=== PATIENT | female | born 1990 | race Caucasian/White ===

== ENCOUNTER 2020-10-26 20:57 | Emergency (ER) | payer SELFPAY ==
[~2020-10-26] VITALS: Ht 165.1 cm; Wt 66.2 kg
[~2020-10-26 20:57] MED LIST: CPR500T PO; NAPR-243 PO; NITR-65 PO; PHEN200T16 PO; PHEN200T27 PO; TPR25T PO; [UNRECOGNIZED DRUG - CODE] TOP
[2020-10-26 21:00] VITALS: BP 126/70
[2020-10-26] MEDS ORDERED: ONDANSETRON 4 MG (ZOFRAN) ORAL DISSOLVE TAB PO STA (21:14)
[2020-10-26] MEDS ORDERED: FAMOTIDINE 20 MG (PEPCID) TABLET PO ONE (21:15)
[2020-10-26] MEDS ORDERED: LIDOCAINE 2% VISCOUS 15 ML UDC PO ONE (21:15)
[2020-10-26] MEDS ORDERED: ANTACID SUSP 30 ML UDC (MYLANTA) PO ONE (21:15)
--- NOTE | 2020-10-26 21:15 | ED Abdominal Pain ---
General Chief Complaint: Abdominal/GI Problems Stated Complaint: ACID REFLEX,VOMITING Source of Information: Patient History of Present Illness Date Seen by Provider: Oct 26, 2020 Time Seen by Provider: 21:05 Initial Comments 30-year-old female presents with epigastric pain, burning, and reflux for about the past 1 week. She saw her primary care provider in [facility] about a week ago and was started on Prilosec twice a day. Is helped some, however not as not relieving all her discomfort. Tonight she vomited x1 so she came to the emergency room. Denies any fever chills, loss of appetite. She is a smoker and she does drink a fair amount of caffeine daily. Denies any chest pain, cough or fever. Allergies and Home Medications Allergies Coded Allergies: No Known Drug Allergies (Unverified , 02/26/13) Home Medications Naproxen 500 Mg Tablet, 1 EACH PO TID PRN FOR PAIN Prescribed by: PREET STAPLETON on 05/05/138 Nitrofurantoin/Nitrofuran Mac 100 Mg Capsule, 1 EACH PO BID FOR INFECTION Prescribed by: PREET STAPLETON on 05/05/138 Phenazopyridine Hcl 200 Mg Tablet, 1 EACH PO TID PRN FOR BLADDER DISCOMFORT Prescribed by: PREET STAPLETON on 05/05/138 Topiramate 25 Mg Tablet, 2 TAB PO BID, (Reported) Patient Home Medication List Home Medication List Reviewed: Yes Review of Systems Review of Systems Constitutional: No fever, No malaise, No weakness EENTM: No Symptoms Reported Respiratory: Denies Cough, Denies Shortness of Air Cardiovascular: Denies Chest Pain, Denies Edema, Denies Lightheadedness Gastrointestinal: Abdominal Pain; Denies Constipated, Denies Diarrhea; Nausea, Vomiting (x1) Genitourinary: Denies Burning, Denies Discharge Musculoskeletal: No back pain, No joint pain Skin: No change in color, No rash Past Okfigfy-Xyjnsp-Xdnrfz Hx Past Med/Social Hx: Reviewed Nursing Past Med/Soc Hx Patient Social History Alcohol Use: Denies Use Smoking Status: Current Everyday Smoker Type Used: Cigarettes Recent Hopitalizations: No Immunizations Up To Date Tetanus Booster (TDap): More than 5yrs Seasonal Allergies Seasonal Allergies: No Past Medical History Surgeries: Yes Gallbladder Respiratory: No Cardiac: No Neurological: No Reproductive Disorders: No Female Reproductive Disorders: Ovarian Cyst Sexually Transmitted Disease: No HIV/AIDS: No Bladder Infection Gastrointestinal: Yes Gastroesophageal Reflux Musculoskeletal: No Endocrine: No HEENT: No Cancer: No Psychosocial: Yes Anxiety Integumentary: No Blood Disorders: No Adverse Reaction/Blood Tranf: No Family Medical History No Pertinent Family Hx Physical Exam Vital Signs Vital Signs - First Documented 10/26/20 21:00 Temp 37.3 Pulse 94 Resp 14 B/P (MAP) 126/70 (88) Pulse Ox 99 O2 Delivery Room Air Capillary Refill : Height/Weight/BMI Height: '" Weight: 97lbs. oz. 43.765887ed; BMI Method:Stated General Appearance: WD/WN, no apparent distress Respiratory: chest non-tender, lungs clear, normal breath sounds Cardiovascular: regular rate, rhythm, no edema, no gallop Gastrointestinal: normal bowel sounds, soft, no organomegaly, no pulsatile mass, tenderness (epigastric only) Progress/Results/Core Measures Results/Orders My Orders Orders - HANNAH ROCHA DO Ondansetron Oral Dissolve Tab (Zofran (10/26/20 21:14) Famotidine Tablet (Pepcid Tablet) (10/26/20 21:15) Antacid Suspension (Mylanta Suspension (10/26/20 21:15) Lidocaine 2% Viscous 15 Ml (Xylocaine Vi (10/26/20 21:15) Vital Signs/I&O 10/26/20 21:00 Temp 37.3 Pulse 94 Resp 14 B/P (MAP) 126/70 (88) Pulse Ox 99 O2 Delivery Room Air Progress Progress Note : Progress Note relief w zofran and GI cocktail Departure Impression Primary Impression: Epigastric abdominal pain Disposition: 01 HOME, SELF-CARE Condition: Improved Departure-Patient Inst. Referrals: [facility] [place]YSIC[place] (PCP) Primary Care Physician Patient Instructions: Peptic Ulcers (DC), Acid Reflux and Gastroesophageal Reflux Disease in Adults Add. Discharge Instructions: Establish a PCP, primary care provider at the [facility] clinic in 1 to 2 weeks. Stop smoking and decrease your caffeine consumption to help alleviate your stomach pain. Return to the ER if your symptoms get worse and you are unable to see a PCP. All discharge instructions reviewed with patient and/or family. Voiced understanding. Scripts Ondansetron (Ondansetron Odt) 4 Mg Tab.rapdis 4 MG PO TID for Nausea, #10 TAB Prov: HANNAH ROCHA DO 10/26/20 Famotidine (Pepcid) 20 Mg Tablet 20 MG PO BID, #10 TAB Prov: HANNAH ROCHA DO 10/26/20 HANNAH ROCHA DO Oct 26, 2020 21:15
[2020-10-26] MEDS ORDERED: FAMO-119 PO (21:24)
[2020-10-26] MEDS ORDERED: ONDA4TAB11 PO (21:24)
== END 2020-10-26 21:38 | disposition home or self-care (01) ==
LOC: EDUNIT# 20:57 → ER FS 20:59
DX: R10.13 Epigastric pain (principal); F17.210 Nicotine dependence, cigarettes, uncomplicated; Z87.448 Personal history of other diseases of urinary system
CPT/HCPCS: 99283

== ENCOUNTER 2020-11-06 17:35 | Emergency (ER) | payer SELFPAY ==
[~2020-11-06] VITALS: Ht 165.1 cm; Wt 65.7 kg
[~2020-11-06 17:35] MED LIST changes: +FAMO-119 PO; +ONDA4TAB11 PO
--- NOTE | 2020-11-06 18:01 | ED Lower Extremity ---
General Chief Complaint: Lower Extremity Stated Complaint: R FOOT PAIN Nursing Triage Note: PT C/O RIGHT FOOT PAIN X1 WEEK. DENIES INJURY Nursing Sepsis Screen: No Definite Risk Source: patient Exam Limitations: no limitations History of Present Illness Date Seen by Provider: Nov 06, 2020 Time Seen by Provider: 17:47 Initial Comments To ER with right foot pain laterally for 1 week no known injury. She will occasionally get sharp pains. The pain is worse with plantar flexion. Onset: just prior to arrival Severity: moderate Pain/Injury Location: right foot Modifying Factors: Improves With Movement Allergies and Home Medications Allergies Coded Allergies: No Known Drug Allergies (Unverified , 02/26/13) Home Medications Famotidine 20 Mg Tablet, 20 MG PO BID Prescribed by: HANNAH ROCHA on 10/26/202123 Naproxen 500 Mg Tablet, 1 EACH PO TID PRN FOR PAIN Prescribed by: PREET STAPLETON on 05/05/138 Nitrofurantoin/Nitrofuran Mac 100 Mg Capsule, 1 EACH PO BID FOR INFECTION Prescribed by: PREET STAPLETON on 05/05/138 Ondansetron 4 Mg Tab.rapdis, 4 MG PO TID Prescribed by: HANNAH ROCHA on 10/26/202123 Phenazopyridine Hcl 200 Mg Tablet, 1 EACH PO TID PRN FOR BLADDER DISCOMFORT Prescribed by: PREET STAPLETON on 05/05/138 Topiramate 25 Mg Tablet, 2 TAB PO BID, (Reported) Patient Home Medication List Home Medication List Reviewed: Yes Review of Systems Constitutional: see HPI EENTM: see HPI Respiratory: no symptoms reported Cardiovascular: no symptoms reported Genitourinary: no symptoms reported Musculoskeletal: see HPI Skin: no symptoms reported Psychiatric/Neurological: No Symptoms Reported Past Xqraici-Nhncdn-Qmcykf Hx Patient Social History Alcohol Use: Denies Use Smoking Status: Current Everyday Smoker Type Used: Cigarettes Recent Infectious Disease Expo: No Recent Hopitalizations: No Immunizations Up To Date Tetanus Booster (TDap): More than 5yrs Seasonal Allergies Seasonal Allergies: No Past Medical History Surgeries: Yes Gallbladder Respiratory: No Cardiac: No Neurological: No Reproductive Disorders: No Female Reproductive Disorders: Ovarian Cyst Sexually Transmitted Disease: No HIV/AIDS: No Bladder Infection Gastrointestinal: Yes Gastroesophageal Reflux Musculoskeletal: No Endocrine: No HEENT: No Cancer: No Psychosocial: Yes Anxiety Integumentary: No Blood Disorders: No Adverse Reaction/Blood Tranf: No Family Medical History No Pertinent Family Hx Physical Exam Vital Signs Vital Signs - First Documented 11/06/20 17:42 Temp 36.2 Pulse 100 Resp 16 B/P (MAP) 135/58 (83) Pulse Ox 99 O2 Delivery Room Air Capillary Refill : Less Than 3 Seconds Height, Weight, BMI Height: '" Weight: 97lbs. oz. 43.367522ik; 24.00 BMI Method:Stated General Appearance: WD/WN, no apparent distress HEENT: PERRL/EOMI, normal ENT inspection Neck: non-tender, full range of motion Respiratory: no respiratory distress, no accessory muscle use Hips: bilateral hip non-tender, bilateral hip normal inspection, bilateral hip normal range of motion Legs: bilateral leg non-tender, bilateral leg normal inspection, bilateral leg normal range of motion Knees: bilateral knee non-tender, bilateral knee normal inspection, bilateral knee normal range of motion Ankles: bilateral ankle non-tender, bilateral ankle normal inspection, bilateral ankle no evidence of injury Feet: bilateral foot normal inspection, bilateral foot normal range of motion; right foot other (The lateral aspect of the right foot is tender to palpation but has normal appearance without any erythema, no wound, no abrasion, no ecch ymosis or swelling.) Neurologic/Tendon: normal sensation, normal motor functions Neurologic/Psychiatric: alert, normal mood/affect, oriented x 3 Skin: normal color, warm/dry Progress/Results/Core Measures Results/Orders My Orders Orders - ARSENIO TORRES APRN Foot, Right, 3 View (11/06/20 18:09) Vital Signs/I&O 11/06/20 17:42 Temp 36.2 Pulse 100 Resp 16 B/P (MAP) 135/58 (83) Pulse Ox 99 O2 Delivery Room Air Blood Pressure Mean: 83 Departure Impression Primary Impression: Foot pain, right Disposition: 01 HOME, SELF-CARE Condition: Stable Departure-Patient Inst. Decision time for Depature: 18:21 Referrals: NO,LOCAL PHYSICIAN (PCP/Family) Primary Care Physician Patient Instructions: Foot Sprain (DC) Add. Discharge Instructions: 1. Wear the postoperative shoe as directed. Take Tylenol and ibuprofen for pain control. If the pain persists in the next week follow-up with your family doctor to discuss scheduling an MRI to evaluate for other causes of foot pain not seen on x-ray. All discharge instructions reviewed with patient and/or family. Voiced understanding. Work/School Note: Work Release Form Date Seen in the Emergency Department: Nov 06, 2020 Return to Work: Nov 08, 2020 ARSENIO TORRES APRN Nov 06, 2020 18:00
--- NOTE | 2020-11-06 18:22 | Diagnostic Imaging Report ---
EXAM: Right foot radiograph. EXAM DATE: 11/06/2020. COMPARISON: None. HISTORY: Right foot pain. TECHNIQUE: Two views of the right foot. FINDINGS: There is no acute fracture, dislocation or destructive osseous process. Joint spaces are normal. Soft tissues are normal. IMPRESSION: No acute osseous abnormality of the right foot. Dictated by: Dictated on workstation # [id number]
[2020-11-06 18:34] VITALS: BP 135/58
== END 2020-11-06 18:34 | disposition home or self-care (01) ==
LOC: EDUNIT# 17:35 → ER 17:36
DX: M79.671 Pain in right foot (principal); K21.9 Gastro-esophageal reflux disease without esophagitis; F17.210 Nicotine dependence, cigarettes, uncomplicated
CPT/HCPCS: 73630

== ENCOUNTER 2020-11-12 06:47 | Emergency (ER) | payer SELFPAY ==
[~2020-11-12] VITALS: Ht 165.1 cm; Wt 67.7 kg
[2020-11-12 07:00] VITALS: BP 108/72
[2020-11-12] MEDS ORDERED: ANTACID SUSP 30 ML UDC (MYLANTA) PO ONE (07:15)
[2020-11-12] MEDS ORDERED: LIDOCAINE 2% VISCOUS 15 ML UDC PO ONE (07:15)
--- NOTE | 2020-11-12 07:24 | ED Abdominal Pain ---
General Chief Complaint: Abdominal/GI Problems Stated Complaint: ABD PAIN Nursing Triage Note: Patient presents to the ED with c/o of epigastric pain that radiates up to her chest. She describes the pain as "burning" and rates the severity at an 8 out of 10. She reports that the pain began around 2100 last night shortly after eating dinner. She denies taking any medications to help with the pain. Sepsis Screen: No Definite Risk Source of Information: Patient Exam Limitations: No Limitations History of Present Illness Date Seen by Provider: Nov 12, 2020 Time Seen by Provider: 06:50 Initial Comments Patient is a 30-year-old female with history of gastritis who presents with epigastric pain radiating to her chest. Symptom onset was 10 hours prior to ED arrival after eating a spicy rich burrito. Pain is described as burning, nonmigratory, and rated mild to moderate. It is worse after eating spicy food. No medications or therapies have been taken prior to ED arrival. Denies fever cough, sore throat, shortness of breath. No hematemesis coffee-ground emesis, no melena or hematochezia. No other acute symptoms or complaints. Previous cholecystectomy. Timing/Duration: 12 Hours Severity/Quality: Mild Location: Other Radiation: Other Activities at Onset: Other Modifying Factors: Improves With Other Associated Symptoms: Other Allergies and Home Medications Allergies Coded Allergies: No Known Drug Allergies (Unverified , 02/26/13) Home Medications Famotidine 20 Mg Tablet, 20 MG PO BID Prescribed by: HANNAH ROCHA on 10/26/202123 Naproxen 500 Mg Tablet, 1 EACH PO TID PRN FOR PAIN Prescribed by: PREET STAPLETON on 05/05/138 Nitrofurantoin/Nitrofuran Mac 100 Mg Capsule, 1 EACH PO BID FOR INFECTION Prescribed by: PREET STAPLETON on 05/05/138 Ondansetron 4 Mg Tab.rapdis, 4 MG PO TID Prescribed by: HANNAH ROCHA on 10/26/202123 Phenazopyridine Hcl 200 Mg Tablet, 1 EACH PO TID PRN FOR BLADDER DISCOMFORT Prescribed by: PREET STAPLETON on 05/05/138 Topiramate 25 Mg Tablet, 2 TAB PO BID, (Reported) Patient Home Medication List Home Medication List Reviewed: Yes Review of Systems Review of Systems Constitutional: see HPI EENTM: See HPI Respiratory: See HPI Cardiovascular: See HPI Gastrointestinal: See HPI Genitourinary: See HPI Musculoskeletal: see HPI Skin: see HPI Psychiatric/Neurological: See HPI Endocrine: See HPI Hematologic/Lymphatic: See HPI All Other Systems Reviewed Negative Unless Noted: Yes Past Rzivhec-Jmcvcf-Gburzm Hx Past Med/Social Hx: Reviewed Nursing Past Med/Soc Hx Patient Social History Alcohol Use: Denies Use Smoking Status: Current Everyday Smoker Type Used: Cigarettes 2nd Hand Smoke Exposure: Yes Recent Infectious Disease Expo: No Recent Hopitalizations: No Immunizations Up To Date Tetanus Booster (TDap): More than 5yrs Seasonal Allergies Seasonal Allergies: No Past Medical History Surgeries: Yes Gallbladder Respiratory: No Cardiac: No Neurological: No Reproductive Disorders: No Female Reproductive Disorders: Ovarian Cyst Sexually Transmitted Disease: No HIV/AIDS: No Genitourinary: No Bladder Infection Gastrointestinal: Yes Gastroesophageal Reflux Musculoskeletal: No Endocrine: No HEENT: No Cancer: No Psychosocial: Yes Anxiety Integumentary: No Blood Disorders: No Adverse Reaction/Blood Tranf: No Family Medical History No Pertinent Family Hx Physical Exam Vital Signs Vital Signs - First Documented 11/12/20 07:00 Temp 36.8 Pulse 101 Resp 16 B/P (MAP) 108/72 (84) Pulse Ox 98 O2 Delivery Room Air Capillary Refill : Less Than 3 Seconds Height/Weight/BMI Height: '" Weight: 97lbs. oz. 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 Gastritis with complete relief of symptoms with GI cocktail Impression Primary Impression: Abdominal pain Additional Impression: Gastritis Disposition: HOME, SELF-CARE Condition: Stable Departure-Patient Inst. Decision time for Depature: 07:26 Referrals: NO,LOCAL PHYSICIAN (PCP/Family) Primary Care Physician Patient Instructions: Gastritis Add. Discharge Instructions: Continue Pepcid 20 mg twice daily and use Maalox OTC as needed for additional relief. Avoid spicy foods, alcohol, caffeine and eating 3 hours prior to bedtime. Follow-up with your PCP as needed. All discharge instructions reviewed with patient and/or family. Voiced understanding. Work/School Note: Work Release Form Date Seen in the Emergency Department: Nov 12, 2020 Return to Work: Nov 12, 2020 Restrictions: No Restrictions ARAMIS DUQUE DO Nov 12, 2020 07:24
== END 2020-11-12 07:29 | disposition home or self-care (01) ==
LOC: EDUNIT# 06:47 → ER FS 06:51
DX: R10.13 Epigastric pain (principal); K29.70 Gastritis, unspecified, without bleeding; K21.9 Gastro-esophageal reflux disease without esophagitis; F17.210 Nicotine dependence, cigarettes, uncomplicated
CPT/HCPCS: 99283

== ENCOUNTER 2020-12-02 12:16 | Emergency (ER) | payer SELFPAY ==
[~2020-12-02] VITALS: Ht 165.1 cm; Wt 67.7 kg
--- NOTE | 2020-12-02 12:35 | ED GU-Female ---
General Chief Complaint: - Urinary Stated Complaint: DIFFICULTY URINATING Source: patient Exam Limitations: no limitations History of Present Illness Date Seen by Provider: December 02, 2020 Time Seen by Provider: 12:24 Initial Comments This is a well-appearing 30-year-old female who presents to the ER with complaints of inability to urinate. States she been having difficulty urinating over the past 2 weeks however today she has not been able to urinate at all. States this is happened in the past when she had a urinary tract infection however this time it is more severe. No fever, chills, cough, shortness of breath, nausea, vomiting, abdominal pain. Last menstrual period 3 days ago. Allergies and Home Medications Allergies Coded Allergies: No Known Drug Allergies (Unverified , 02/26/13) Home Medications Famotidine 20 Mg Tablet, 20 MG PO BID Prescribed by: HANNAH ROCHA on 10/26/202123 Naproxen 500 Mg Tablet, 1 EACH PO TID PRN FOR PAIN Prescribed by: PREET STAPLETON on 05/05/138 Nitrofurantoin/Nitrofuran Mac 100 Mg Capsule, 1 EACH PO BID FOR INFECTION Prescribed by: PREET STAPLETON on 05/05/138 Ondansetron 4 Mg Tab.rapdis, 4 MG PO TID Prescribed by: HANNAH ROCHA on 10/26/202123 Phenazopyridine Hcl 200 Mg Tablet, 1 EACH PO TID PRN FOR BLADDER DISCOMFORT Prescribed by: PREET STAPLETON on 05/05/138 Tamsulosin HCl 0.4 Mg Cap, 0.4 MG PO DAILY Prescribed by: WANDA CONNER on 12/02/20 153 Topiramate 25 Mg Tablet, 2 TAB PO BID, (Reported) Patient Home Medication List Home Medication List Reviewed: Yes Review of Systems Review of Systems Constitutional: no symptoms reported EENTM: no symptoms reported Respiratory: no symptoms reported Cardiovascular: no symptoms reported Gastrointestinal: no symptoms reported Genitourinary: see HPI; denies burning, denies discharge, denies dysuria, denies frequency, denies flank pain Past Isjnetf-Cxsede-Cwerip Hx Patient Social History Type Used: Cigarettes 2nd Hand Smoke Exposure: Yes Recent Hopitalizations: No Immunizations Up To Date Tetanus Booster (TDap): More than 5yrs Seasonal Allergies Seasonal Allergies: No Past Medical History Surgeries: Yes Gallbladder Respiratory: No Cardiac: No Neurological: No Reproductive Disorders: No Female Reproductive Disorders: Ovarian Cyst Sexually Transmitted Disease: No HIV/AIDS: No Genitourinary: No Bladder Infection Gastrointestinal: Yes Gastroesophageal Reflux Musculoskeletal: No Endocrine: No HEENT: No Cancer: No Psychosocial: Yes Anxiety Integumentary: No Blood Disorders: No Adverse Reaction/Blood Tranf: No Family Medical History No Pertinent Family Hx Physical Exam Vital Signs Vital Signs - First Documented 12/02/20 12:20 Temp 36.5 Pulse 89 Resp 18 B/P (MAP) 123/83 (96) Pulse Ox 99 O2 Delivery Room Air Capillary Refill : Height, Weight, BMI Height: '" Weight: 97lbs. oz. 43.933518dj; 24.00 BMI Method:Stated General Appearance: WD/WN, no apparent distress HEENT: PERRL/EOMI, normal ENT inspection Neck: full range of motion, normal inspection Cardiovascular: regular rate, rhythm, no murmur Respiratory: lungs clear, normal breath sounds, no respiratory distress Gastrointestinal: normal bowel sounds, non tender, soft; No distended; other (suprapubic "pressure") Pelvic: normal external exam, no masses; No discharge, No lesions, No vaginal bleeding Back: normal inspection, no CVA tenderness Extremities: normal range of motion, normal inspection Neurologic/Psychiatric: no motor/sensory deficits, alert, normal mood/affect, oriented x 3 Skin: normal color, warm/dry Progress/Results/Core Measures Suspected Sepsis SIRS Temperature: Pulse: Respiratory Rate: Laboratory Tests 12/02/20 13:45: White Blood Count 6.8 Blood Pressure / Mean: Laboratory Tests 12/02/20 13:45: Creatinine 0.80, Platelet Count 248, Total Bilirubin 0.3 Results/Orders Lab Results Laboratory Tests Test 12/02/20 12:55 12/02/20 13:45 12/02/20 16:03 Range/Units Urine Color YELLOW Urine Clarity CLEAR Urine pH 7.0 5-9 Urine Specific [place] 1.015 L 1.016-1.022 Urine Protein NEGATIVE NEGATIVE Urine Glucose (UA) NEGATIVE NEGATIVE Urine Ketones NEGATIVE NEGATIVE Urine Nitrite NEGATIVE NEGATIVE Urine Bilirubin NEGATIVE NEGATIVE Urine Urobilinogen 1.0 < = 1.0 MG/DL Urine Leukocyte Esterase NEGATIVE NEGATIVE Urine RBC (Auto) NEGATIVE NEGATIVE Urine RBC NONE /HPF Urine WBC RARE /HPF Urine Crystals NONE /LPF Urine Bacteria NEGATIVE /HPF Urine Casts NONE /LPF Urine Mucus SMALL H /LPF Urine Culture Indicated NO White Blood Count 6.8 4.3-11.0 10^3/uL Red Blood Count 4.02 3.80-5.11 10^6/uL Hemoglobin 12.8 11.5-16.0 g/dL Hematocrit 38 35-52 % Mean Corpuscular Volume 95 80-99 fL Mean Corpuscular Hemoglobin 32 25-34 pg Mean Corpuscular Hemoglobin Concent 33 32-36 g/dL Red Cell Distribution Width 13.1 10.0-14.5 % Platelet Count 248 130-400 10^3/uL Mean Platelet Volume 10.5 9.0-12.2 fL Immature Granulocyte % (Auto) 0 % Neutrophils (%) (Auto) 50 42-75 % Lymphocytes (%) (Auto) 37 12-44 % Monocytes (%) (Auto) 8 0-12 % Eosinophils (%) (Auto) 5 0-10 % Basophils (%) (Auto) 1 0-10 % Neutrophils # (Auto) 3.4 1.8-7.8 10^3/uL Lymphocytes # (Auto) 2.5 1.0-4.0 10^3/uL Monocytes # (Auto) 0.5 0.0-1.0 10^3/uL Eosinophils # (Auto) 0.3 0.0-0.3 10^3/uL Basophils # (Auto) 0.1 0.0-0.1 10^3/uL Immature Granulocyte # (Auto) 0.0 0.0-0.1 10^3/uL Sodium Level 141 135-145 MMOL/L Potassium Level 3.5 L 3.6-5.0 MMOL/L Chloride Level 113 H 98-107 MMOL/L Carbon Dioxide Level 18 L 21-32 MMOL/L Anion Gap 10 5-14 MMOL/L Blood Urea Nitrogen 8 7-18 MG/DL Creatinine 0.80 0.60-1.30 MG/DL Estimat Glomerular Filtration Rate > 60 BUN/Creatinine Ratio 10 Glucose Level 78 70-105 MG/DL Calcium Level 8.3 L 8.5-10.1 MG/DL Corrected Calcium 8.5 8.5-10.1 MG/DL Total Bilirubin 0.3 0.1-1.0 MG/DL Aspartate Amino Transf (AST/SGOT) 17 5-34 U/L Alanine Aminotransferase (ALT/SGPT) 12 0-55 U/L Alkaline Phosphatase 91 40-136 U/L Total Protein 6.6 6.4-8.2 GM/DL Albumin 3.8 3.2-4.5 GM/DL My Orders Orders - WANDA CONNER APRN Ua Culture If Indicated (12/02/20 12:24) Bladder Scan (12/02/20 12:32) Urine Bedside (12/02/20 12:35) Ketorolac Injection (Toradol Injection) (12/02/20 12:45) Straight Cath For Spec.-Adult (12/02/20 12:42) Neisseria Gonorrhea Swab (12/02/20 13:02) Genital Culture (12/02/20 13:02) Chlamydia Trachomatis Swab (12/02/20 13:02) Cbc With Automated Diff (12/02/20 13:07) Comprehensive Metabolic Panel (12/02/20 13:07) Ns Iv 1000 Ml (Sodium Chloride 0.9%) (12/02/20 13:45) Ed Iv/Invasive Line Start (12/02/20 13:41) Ct Abdomen/Pelvis Wo (12/02/20 13:41) Medications Given in ED Current Medications Medications Dose Ordered Sig/Ginette Route Start Time Stop Time Status Last Admin Dose Admin Ketorolac Tromethamine 30 mg ONCE ONCE IM 12/02/20 12:45 12/02/20 12:46 DC 12/02/20 13:00 30 MG Sodium Chloride 1,000 ml @ 999 mls/hr Q1H ONCE IV 12/02/20 13:45 12/02/20 14:45 DC 12/02/20 13:53 999 MLS/HR Vital Signs/I&O 12/02/20 12:20 Temp 36.5 Pulse 89 Resp 18 B/P (MAP) 123/83 (96) Pulse Ox 99 O2 Delivery Room Air Capillary Refill : Progress Note : Progress Note Patient examined and in no acute distress. Will give Toradol 30 mg IM for discomfort and obtain bladder scan. Reports improvement of pain, UA shows no infection. Will give 1 L normal saline. Orders placed for basic labs and CT abdomen pelvis. External genital exam shows no obvious deformities, masses, lesions. Labs reviewed and are unremarkable, CT abdomen pelvis shows no acute findings. Discussed case with Dr. Castaneda recommended starting patient on Flomax and have her following up outpatient. STI testing and vaginal cultures pending. Reviewed discharge plan of care and she is agreeable with plan. No questions or concerns at time of discharge. Diagnostic Imaging Diagonstic Imaging: CT Plain Films/CT/US/NM/MRI: abdomen, pelvis Comments NAME: HUSSEIN COBIAN [facility] REC#: [id number] PT STATUS: REG ER : 1990 PHYSICIAN: WANDA CONNER [employer] ADMIT DATE: 12/02/20/ER Draft Date of Exam:12/02/20 CT ABDOMEN/PELVIS WO EXAMINATION: CT abdomen and pelvis without contrast. TECHNIQUE: Multiple contiguous axial images were obtained through the abdomen and pelvis without the use of intravenous contrast. All CT scans use one or more of the following dose optimizing techniques: automated exposure control, MA and/or KvP adjustment based on patient size and exam type or iterative reconstruction. HISTORY: Flank pain COMPARISON: None available. FINDINGS: Limited views of the lower thorax are unremarkable. The liver is normal without focal lesion. There is no biliary ductal dilation. Gallbladder is surgically absent. Pancreas is normal. Spleen is normal. Adrenal glands are normal. The kidneys are normal. There is no hydronephrosis. Urinary bladder is normal. There are no renal or ureteral stones. Visualized bowel is normal in caliber without obstruction or inflammation. No free fluid or air. No abdominal or pelvic lymphadenopathy. Aorta is normal in caliber without aneurysm. There are no suspicious osseus lesions. IMPRESSION: 1. No acute abnormality in the abdomen or pelvis. Dictated on workstation # [id number] Dict: 12/02/20 1449 Trans: 12/02/20 1452 [facility] [id number] Interpreted by: TAMIKO MICHAUD MD Electronically signed by: Departure Communication (Admissions) Time/Spoke to Consulting Phy: 15:[address] Castaneda with urology, recommended patient start on Flomax daily and have her follow-up with her primary care provider or through the local [facility]. Impression Primary Impression: Acute urinary retention Disposition: 01 HOME, SELF-CARE Condition: Improved Departure-Patient Inst. Decision time for Depature: 15:37 Referrals: NO,LOCAL PHYSICIAN (PCP/Family) Primary Care Physician Patient Instructions: Choosing Treatment for Low-Risk Localized Prostate Cancer, Urinary Retention Add. Discharge Instructions: Plan: 1. Drink plenty of fluids. 2. Take your Flomax daily as directed. 3. Follow up with your doctor or provider of choice. A list has been provided. 4. Return if you are unable to urinate within 8 hours, return for any new or worsening symptoms. All discharge instructions reviewed with patient and/or family. Voiced understanding. Scripts Tamsulosin HCl (Flomax) 0.4 Mg Cap 0.4 MG PO DAILY for 14 Days, #14 CAP 0 Refills Prov: WANDA CONNER [employer] 12/02/20 WANDA CONNER [employer] December 02, 2020 12:35
[2020-12-02] MEDS ORDERED: KETOROLAC 30 MG/ML VIAL IM ONE (12:45)
[2020-12-02 13:04] LABS: BILIRUBIN,URINE NEGATIVE (NEGATIVE); CLARITY,URINE CLEAR; COLOR,URINE YELLOW; GLUCOSE, URINE (UA) NEGATIVE (NEGATIVE); KETONES,URINE NEGATIVE (NEGATIVE); LEUKOCYTE ESTERASE ,URINE NEGATIVE (NEGATIVE); NITRITE,URINE NEGATIVE (NEGATIVE); PROTEIN,URINE NEGATIVE (NEGATIVE)
[2020-12-02 13:11] LABS: WBC,URINE RARE /HPF
[2020-12-02 13:12] LABS: BACTERIA,URINE NEGATIVE /HPF
[2020-12-02] MEDS ORDERED: NS IV 1000 ML 1,000 ML IV ONE (13:45)
[2020-12-02 13:59] LABS: BASOPHILS # (AUTO) 0.1 10^3/uL (0.0-0.1); BASOPHILS % (AUTO) 1 % (0-10); EOSINOPHILS # (AUTO) 0.3 10^3/uL (0.0-0.3); EOSINOPHILS % (AUTO) 5 % (0-10); HEMATOCRIT 38 % (35-52); HEMOGLOBIN 12.8 g/dL (11.5-16.0); LYMPHOCYTES # (AUTO) 2.5 10^3/uL (1.0-4.0); LYMPHOCYTES % (AUTO) 37 % (12-44); MEAN CORPUSCULAR HEMOGLOBIN 32 pg (25-34); MEAN CORPUSCULAR HGB CONC 33 g/dL (32-36); MEAN CORPUSCULAR VOLUME 95 fL (80-99); MEAN PLATELET VOLUME 10.5 fL (9.0-12.2); MONOCYTES # (AUTO) 0.5 10^3/uL (0.0-1.0); MONOCYTES % (AUTO) 8 % (0-12); NEUTROPHILS # (AUTO) 3.4 10^3/uL (1.8-7.8); NEUTROPHILS % (AUTO) 50 % (42-75); PLATELET COUNT 248 10^3/uL (130-400); WHITE BLOOD COUNT 6.8 10^3/uL (4.3-11.0)
[2020-12-02 14:04] LABS: ALBUMIN 3.8 GM/DL (3.2-4.5); CHLORIDE 113 MMOL/L (98-107); POTASSIUM 3.5 MMOL/L (3.6-5.0); SODIUM 141 MMOL/L (135-145)
[2020-12-02 14:05] LABS: CALCIUM 8.3 MG/DL (8.5-10.1)
[2020-12-02 14:06] LABS: GLUCOSE 78 MG/DL (70-105); TOTAL PROTEIN 6.6 GM/DL (6.4-8.2)
[2020-12-02 14:07] LABS: CARBON DIOXIDE 18 MMOL/L (21-32)
[2020-12-02 14:08] LABS: BILIRUBIN,TOTAL 0.3 MG/DL (0.1-1.0)
[2020-12-02 14:10] LABS: ALKALINE PHOSPHATASE 91 U/L (40-136); GFR ESTIMATED > 60
[2020-12-02 14:11] LABS: BUN/CREATININE RATIO 10
[2020-12-02 14:13] LABS: ALANINE AMINOTRANSFERASE 12 U/L (0-55)
--- NOTE | 2020-12-02 14:52 | Diagnostic Imaging Report ---
EXAMINATION: CT abdomen and pelvis without contrast. TECHNIQUE: Multiple contiguous axial images were obtained through the abdomen and pelvis without the use of intravenous contrast. All CT scans use one or more of the following dose optimizing techniques: automated exposure control, MA and/or KvP adjustment based on patient size and exam type or iterative reconstruction. HISTORY: Flank pain COMPARISON: None available. FINDINGS: Limited views of the lower thorax are unremarkable. The liver is normal without focal lesion. There is no biliary ductal dilation. Gallbladder is surgically absent. Pancreas is normal. Spleen is normal. Adrenal glands are normal. The kidneys are normal. There is no hydronephrosis. Urinary bladder is normal. There are no renal or ureteral stones. Visualized bowel is normal in caliber without obstruction or inflammation. No free fluid or air. No abdominal or pelvic lymphadenopathy. Aorta is normal in caliber without aneurysm. There are no suspicious osseus lesions. IMPRESSION: 1. No acute abnormality in the abdomen or pelvis. Dictated by: Dictated on workstation # [email or web address]
[2020-12-02] MEDS ORDERED: TMSL.4C PO (15:39)
[2020-12-02 16:18] VITALS: BP 142/95
== END 2020-12-02 16:13 | disposition home or self-care (01) ==
LOC: EDUNIT# 12:16 → ER 12:18
DX: R33.9 Retention of urine, unspecified (principal); R10.30 Lower abdominal pain, unspecified; K21.9 Gastro-esophageal reflux disease without esophagitis; Z77.22 Contact with and (suspected) exposure to environmental tobacco smoke (acute) (chronic)
CPT/HCPCS: 36415; 51701; 74176; 80053; 81000; 84703; 85025; 87070; 87077; 87186; 87205; 87491; 87591

== ENCOUNTER → 2021-02-09 | Emergency (ER) | payer SELFPAY ==
[~2021-02-09] MED LIST changes: +ACHD5005 PO; +BACL10TA PO; +IBUP-1780 PO; +TMSL.4C PO
== END ==
LOC: EDUNIT# 21:16 → ER FS 21:17
DX: R09.89 Other specified symptoms and signs involving the circulatory and respiratory systems (principal); R06.02 Shortness of breath

== ENCOUNTER 2021-04-11 20:31 | Emergency (ER) | payer SELFPAY ==
[~2021-04-11] VITALS: Ht 165.1 cm; Wt 67.2 kg
--- OUTSIDE RECORDS SUMMARY | 2021-04-11 20:36 | XMS REPORT ---
Author Author [facility] Address Unknown Phone Unavailable Care Team Providers Care Client Service Consultant Name Role Phone Migration, Doctor Unavailable Unavailable PROBLEMS Type Condition ICD9-CM Code [id number] Code Onset Dates Condition S tatus W/U Status Risk SNOMED Code Notes Problem Body Mass Index less than 19, adult V85.0 Active 301036009 BODY MASS INDEX LESS THAN 19 ADULT Problem Nausea alone 787.02 Active 032768914 NAUSEA ALONE Problem Unspecified hemorrhoids without mention of complication 45 5.6 Active 62504111 HEMORRHOIDS NOS Problem Panic disorder without agoraphobia 300.01 Active 01133477 PANIC DISORDER WITHOUT AGORAPHOBIA Problem Insomnia, unspecified 780.52 Active 1 13409629 INSOMNIA UNSPECIFIED Problem Other atopic dermatitis and related conditions 691.8 Active 580700329 OTHER ATOPIC DERMATITIS AND RELATED COND ITIONS Problem Lumbago 724.2 Active 659267182 BACK PAIN, LOWER Problem Acute upper respiratory infections of unspecified site 465.9 Active 20210409 UPPER RESPIRATORY IN FECTION ALLERGIES Allergen (clinical drug ingredient) Drug/Non Drug Allergy do cumented on EMR Reaction Allergy Type Onset Date Status Paxil 20 Mg Tablet Panic Attacks Non Drug Allergy Active ENCOUNTERS from 1991 to 2021-03-06 Encounter Location Date Provider Diagnosis [facility] [address] [facility] [id number] [place] [address] Oct, Doctor Migration IMMUNIZATIONS No Information SOCIAL HISTORY Sex Assigned At : Social History Observation Description Sex Assigned At Unknown PHQ2 Question Answer Notes In the last 2 weeks, how often have you had little interest or pleasure in doing things? Not at all In the last 2 weeks, how often have you been feeling down, depressed, or hopeless? Not at all Total PHQ2 Score 0 REASON FOR REFERRAL No Information VITAL SIGNS No information MEDICATIONS Medication SIG (Take, Route, Frequency, Duration) Notes Start Da te End Date Status Topamax 100 mg 1 Tablet by Oral route 2 daily [facility] Apr, Active Mirtazapine 15 mg 1 tablet by Oral route 1 time per day [facility] Apr, Active PROCEDURES No Information RESULTS No Results REASON FOR VISIT [facility] MEDICAL (GENERAL) HISTORY Type Description Date Surgical History cholecystectomy 2018 Hospitalization History Surgery(s) only Goals Section No Information Health Concerns No Information MEDICAL EQUIPMENT No Information MENTAL STATUS No Information FUNCTIONAL STATUS No Information ASSESSMENTS No Information PLAN OF TREATMENT No Information Insurance Providers Payer Name Payer Address Payer Phone Insured Name Patient Relati onship to Insured Coverage Start Date Coverage End Date [employer] [id number] [facility] [id number] Latricia Jacobo 2020
--- NOTE | 2021-04-11 20:48 | ED General ---
General Chief Complaint: Abdominal/GI Problems Stated Complaint: NAUSEA Nursing Triage Note: Pt awake, alert, oriented. Ambulated from waiting room to ER 2 without difficulty. Pt reports that she started to feel nauseated at work, so she was told to leave her shift early et "go get checked out." Denies recent fever or sick contacts. Denies abdominal pain or vomiting. Airway intact. Respirations even et unlabored. Skin warm, dry, appropriate for ethnicity. No sx of acute distress. Source of Information: Patient History of Present Illness Date Seen by Provider: Apr 11, 2021 Time Seen by Provider: 20:37 Initial Comments 30-year-old female presenting with complaints of nausea that started around 4 PM. She denied having different foods or eating anything. She has not been around any ill contacts. She denied any fever, chills, change in her bowels, change in urination. She is not taking any new medications. She has not had any actual vomiting or systemic nausea. She has had her gallbladder out and does have intermittent diarrhea and upset stomach due to that. She denies any cough or congestion. She denies abdominal pain. Allergies and Home Medications Allergies Coded Allergies: No Known Drug Allergies (Unverified , 02/26/13) Patient Home Medication List Home Medication List Reviewed: Yes Baclofen (Baclofen) 10 Mg Tablet, 10 MG PO TID PRN for MUSCLE SPASMS Prescribed by: VIIPN NASH on 12/14/202342 Famotidine (Pepcid) 20 Mg Tablet, 20 MG PO BID Prescribed by: HANNAH ROCHA on 10/26/202123 Hydrocodone/Acetaminophen (Hydrocodone-Acetamin 5-325 mg) 1 Each Tablet, 1 TAB PO Q6H PRN for PAIN-SEVERE (8-10) Prescribed by: VIPIN CALLEJASRT on 12/14/202343 Ibuprofen (Ibuprofen) 800 Mg Tablet, 800 MG PO Q8H PRN for PAIN Prescribed by: VIPIN CALLEJASRT on 12/14/202342 Naproxen (Naprosyn) 500 Mg Tablet, 1 EACH PO TID PRN Prescribed by: PREET STAPLETON on 05/05/138 Nitrofurantoin/Nitrofuran Mac (Macrobid) 100 Mg Capsule, 1 EACH PO BID Prescribed by: PREET STAPLETON on 10/13/13 0009 Ondansetron (Ondansetron Odt) 4 Mg Tab.rapdis, 4 MG PO TID Prescribed by: HANNAH ROCHA on 10/26/202123 Ondansetron (Ondansetron Odt) 4 Mg Tab.rapdis, 4 MG PO Q6H PRN for NAUSEA/VOMITING Prescribed by: VIPIN NASH on 04/11/212110 Phenazopyridine Hcl (Pyridium) 200 Mg Tablet, 1 EACH PO TID PRN Prescribed by: PREET STAPLETON on 05/05/13 0009 Sulfamethoxazole/Trimethoprim (Bactrim Ds Tablet) 1 Each Tablet, 1 EACH PO BID Prescribed by: VIPIN CALLEJASRT on 04/11/212110 Tamsulosin HCl (Flomax) 0.4 Mg Cap, 0.4 MG PO DAILY Prescribed by: WANDA CONNER on 12/02/20 153 Topiramate (Topamax) 25 Mg Tablet, 2 TAB PO BID, (Reported) Entered as Reported by: ALEYDA GOMEZ on 02/26/13 1218 Review of Systems Review of Systems Constitutional: No chills, No fever EENTM: no symptoms reported Respiratory: no symptoms reported Cardiovascular: no symptoms reported Gastrointestinal: see HPI, nausea; No vomiting Genitourinary: No dysuria Musculoskeletal: no symptoms reported Skin: No rash Psychiatric/Neurological: Denies Headache Past Keaedqw-Zqjcrg-Askihj Hx Patient Social History Tobacco Use?: Yes Tobacco type used: Cigarettes Smoking Status: Current Everyday Smoker Use of E-Cig and/or Vaping dev: No Substance use?: No Alcohol Use?: No Pt feels they are or have been: No Immunizations Up To Date Tetanus Booster (TDap): More than 5yrs Influenza Vaccine Up-to-Date: Yes; Up-to-Date First/Initial COVID19 Vaccinat: August 2020 Second COVID19 Vaccination Dominic: September 2020 COVID19 Vaccine Licensed Clinical Psychologist: dax [place] Seasonal Allergies Seasonal Allergies: No Past Medical History Surgeries: Yes Gallbladder Respiratory: No Cardiac: No Neurological: No Reproductive Disorders: No Female Reproductive Disorders: Ovarian Cyst Sexually Transmitted Disease: No HIV/AIDS: No Genitourinary: No Bladder Infection Gastrointestinal: Yes Gastroesophageal Reflux Musculoskeletal: No Endocrine: No HEENT: No Cancer: No Psychosocial: Yes Anxiety Integumentary: No Blood Disorders: No Adverse Reaction/Blood Tranf: No Family Medical History No Pertinent Family Hx Physical Exam Vital Signs Vital Signs - First Documented 04/11/21 20:35 Temp 36.7 Pulse 95 Resp 14 B/P (MAP) 121/78 (92) Pulse Ox 99 O2 Delivery Room Air Capillary Refill : Less Than 3 Seconds Height, Weight, BMI Height: '" Weight: 97lbs. oz. 43.328505ck; 24.00 BMI Method:Stated General Appearance: No Apparent Distress, WD/WN HEENT: PERRL/EOMI, Pharynx Normal Neck: Full Range of Motion, Normal Inspection, Non Tender, Supple Respiratory: Chest Non Tender, Lungs Clear, Normal Breath Sounds, No Accessory Muscle Use, No Respiratory Distress Cardiovascular: Regular Rate, Rhythm, Normal Peripheral Pulses Gastrointestinal: Normal Bowel Sounds, No Pulsatile Mass, Non Tender, Soft Rectal: Deferred Back: No CVA Tenderness, No Vertebral Tenderness Extremity: Normal Capillary Refill, Normal Inspection, No Pedal Edema Neurologic/Psychiatric: Alert, Oriented x3 Skin: Normal Color, Warm/Dry Progress/Results/Core Measures Suspected Sepsis SIRS Temperature: Pulse: 95 Respiratory Rate: 14 Blood Pressure 121 /78 Mean: 92 Results/Orders Lab Results Laboratory Tests Test 04/11/21 20:20 Range/Units Urine Color YELLOW Urine Clarity CLOUDY Urine pH 6.5 5-9 Urine Specific [place] 1.015 L 1.016-1.022 Urine Protein NEGATIVE NEGATIVE Urine Glucose (UA) NEGATIVE NEGATIVE Urine Ketones NEGATIVE NEGATIVE Urine Nitrite NEGATIVE NEGATIVE Urine Bilirubin NEGATIVE NEGATIVE Urine Urobilinogen 0.2 < = 1.0 MG/DL Urine Leukocyte Esterase NEGATIVE NEGATIVE Urine RBC (Auto) NEGATIVE NEGATIVE Urine RBC 2-5 H /HPF Urine WBC 10-25 H /HPF Urine Squamous Epithelial Cells 25-50 H /HPF Urine Crystals NONE /LPF Urine Bacteria LARGE H /HPF Urine Casts NONE /LPF Urine Mucus MODERATE H /LPF Urine Culture Indicated NO My Orders Orders - VIPIN NASH MD Ua Culture If Indicated (04/11/21 20:36) Urine Bedside (04/11/21 20:36) Ondansetron Oral Dissolve Tab (Zofran (04/11/21 21:01) Rx-Ondansetron Po (Rx-Zofran Po) (04/11/21 21:15) Sulfamethoxazole/Trimet Ds Tab (Bactrim (04/11/21 21:07) Medications Given in ED Current Medications Medications Dose Ordered Sig/Ginette Route Start Time Stop Time Status Last Admin Dose Admin Ondansetron HCl 4 mg Q6H PRN PO 04/11/21 21:15 04/11/21 21:07 4 MG Vital Signs/I&O 04/11/21 20:35 Temp 36.7 Pulse 95 Resp 14 B/P (MAP) 121/78 (92) Pulse Ox 99 O2 Delivery Room Air Capillary Refill : Less Than 3 Seconds Blood Pressure Mean: 92 Progress Note #1: Progress Note Obtain urinalysis and bedside test. Progress Note #2: Progress Note Bedside test was negative. The urinalysis did show large amount of bacteria and white blood cells. There were some epithelial cells as well. Will treat with 3-day course of Bactrim for antibiotics to cover UTI. Use Zofran for nausea. Encourage fluids and rest. Advised if she has worsening symptoms or something more to develop to be seen again however currently no nausea no other abnormal symptoms on her exam her vitals this may be due to the urine infection or a viral infection. For now we will treat the nausea symptoms and treat the bacteria seen in the urine. Counseled on follow-up and return precautions. Departure Impression Primary Impression: Nausea alone Additional Impression: Cystitis without hematuria Disposition: 01 HOME, SELF-CARE Condition: Stable Departure-Patient Inst. Decision time for Depature: 21:08 Referrals: NO,LOCAL PHYSICIAN (PCP) Primary Care Physician [facility] Patient Instructions: Urinary Tract Infection, Adult ED, Nausea and Vomiting, Adult ED Add. Discharge Instructions: Stay well hydrated and drink plenty of water. Take the antibiotic to treat bacteria in urine as this may be causing you to have nausea. Use the dissolving nausea tablets to help with nausea. If you have worsening symptoms, fever over 101 F, uncontrolled vomiting then seek medical care for further evaluation. All discharge instructions reviewed with patient and/or family. Voiced understanding. Scripts Ondansetron (Ondansetron Odt) 4 Mg Tab.rapdis 4 MG PO Q6H PRN for NAUSEA/VOMITING for 3 Days, #12 TAB 0 Refills Prov: VIPIN NASH MD 04/11/21 Sulfamethoxazole/Trimethoprim (Bactrim Ds Tablet) 1 Each Tablet 1 EACH PO BID for UTI for 3 Days, #6 TAB 0 Refills Prov: VIPIN NASH MD 04/11/21 Work/School Note: Work Release Form Date Seen in the Emergency Department: Apr 11, 2021 Return to Work: Apr 12, 2021 Restrictions: No Restrictions VIPIN NASH MD Apr 11, 2021 20:48
[2021-04-11 20:59] LABS: CLARITY,URINE CLOUDY; COLOR,URINE YELLOW; PH,URINE 6.5 (5-9)
[2021-04-11 21:00] LABS: BACTERIA,URINE LARGE /HPF; BILIRUBIN,URINE NEGATIVE (NEGATIVE); GLUCOSE, URINE (UA) NEGATIVE (NEGATIVE); KETONES,URINE NEGATIVE (NEGATIVE); LEUKOCYTE ESTERASE ,URINE NEGATIVE (NEGATIVE); NITRITE,URINE NEGATIVE (NEGATIVE); PROTEIN,URINE NEGATIVE (NEGATIVE); SQUAMOUS EPITHELIAL CELL,UR 25-50 /HPF
[2021-04-11] MEDS ORDERED: ONDANSETRON 4 MG (ZOFRAN) ORAL DISSOLVE TAB PO STA (21:01)
[2021-04-11] MEDS ORDERED: TRIM/SULFAMETH 160/800 (SEPTRA DS) TAB PO STA (21:07)
[2021-04-11] MEDS ORDERED: SULF1TAB38 PO (21:11)
[2021-04-11] MEDS ORDERED: ONDA4TAB11 PO (21:11)
[2021-04-11] MEDS ORDERED: RX-ONDANSETRON 4 MG ODT (ZOFRAN) PPK #4 PO PRN (21:15)
[2021-04-11 21:18] VITALS: BP 121/78
== END 2021-04-11 21:19 | disposition home or self-care (01) ==
LOC: EDUNIT# 20:31 → ER FS 20:33
DX: N30.90 Cystitis, unspecified without hematuria (principal); K21.9 Gastro-esophageal reflux disease without esophagitis; F17.210 Nicotine dependence, cigarettes, uncomplicated; Z79.899 Other long term (current) drug therapy; Z32.02 Encounter for pregnancy test, result negative
CPT/HCPCS: 81000; 84703; 87088; 99283

== ENCOUNTER 2021-06-21 19:11 | Emergency (ER) | payer SELFPAY ==
[~2021-06-21] VITALS: Ht 165.1 cm; Wt 69.6 kg
[~2021-06-21 19:11] MED LIST changes: +SULF1TAB38 PO
--- NOTE | 2021-06-21 19:44 | ED GI ---
General Chief Complaint: Abdominal/GI Problems Stated Complaint: NAUSEA Source of Information: Patient Exam Limitations: No Limitations History of Present Illness Date Seen by Provider: Jun 21, 2021 Time Seen by Provider: 19:19 Initial Comments 31-year-old female with no significant past medical history coming in due to roughly 1 day of nausea and a little bit of lower abdominal cramping the other day, but currently no cramping. Denies any vaginal bleeding or discharge. Denies any dysuria. Has never really had symptoms like this before. LMP is just late and was May 20. She says she is normally very regular. Has been sexually active. Is otherwise denying any other acute complaints. Allergies and Home Medications Allergies Coded Allergies: No Known Drug Allergies (Unverified , 02/26/13) Patient Home Medication List Home Medication List Reviewed: Yes Baclofen (Baclofen) 10 Mg Tablet, 10 MG PO TID PRN for MUSCLE SPASMS Prescribed by: VIPIN CALLEJASRT on 12/14/202342 Famotidine (Pepcid) 20 Mg Tablet, 20 MG PO BID Prescribed by: HANNAH ROCHA on 10/26/202123 Hydrocodone/Acetaminophen (Hydrocodone-Acetamin 5-325 mg) 1 Each Tablet, 1 TAB PO Q6H PRN for PAIN-SEVERE (8-10) Prescribed by: VIPIN NASH on 12/14/202343 Ibuprofen (Ibuprofen) 800 Mg Tablet, 800 MG PO Q8H PRN for PAIN Prescribed by: VIPIN CALLEJASRT on 12/14/202342 Naproxen (Naprosyn) 500 Mg Tablet, 1 EACH PO TID PRN Prescribed by: PREET STAPLETON on 05/05/138 Nitrofurantoin/Nitrofuran Mac (Macrobid) 100 Mg Capsule, 1 EACH PO BID Prescribed by: PREET STAPLETON on 05/05/138 Ondansetron (Ondansetron Odt) 4 Mg Tab.rapdis, 4 MG PO TID Prescribed by: HANNAH ROCHA on 10/26/202123 Ondansetron (Ondansetron Odt) 4 Mg Tab.rapdis, 4 MG PO Q6H PRN for NAUSEA/VOMITING Prescribed by: VIPIN CALLEJASRT on 04/11/212110 Phenazopyridine Hcl (Pyridium) 200 Mg Tablet, 1 EACH PO TID PRN Prescribed by: PREET STAPLETON on 05/05/13 0009 Sulfamethoxazole/Trimethoprim (Bactrim Ds Tablet) 1 Each Tablet, 1 EACH PO BID Prescribed by: VIPIN NASH on 04/11/21 211 Tamsulosin HCl (Flomax) 0.4 Mg Cap, 0.4 MG PO DAILY Prescribed by: WANDA CONNER on 12/02/20 1539 Topiramate (Topamax) 25 Mg Tablet, 2 TAB PO BID, (Reported) Entered as Reported by: ALEYDA GOMEZ on 02/26/13 1218 Review of Systems Review of Systems Constitutional: No chills EENTM: No Symptoms Reported Respiratory: No Symptoms Reported Cardiovascular: No Symptoms Reported Gastrointestinal: Nausea Genitourinary: No Symptoms Reported Musculoskeletal: no symptoms reported Skin: no symptoms reported Psychiatric/Neurological: No Symptoms Reported Endocrine: No Symptoms Reported Hematologic/Lymphatic: No Symptoms Reported All Other Systems Reviewed Negative Unless Noted: Yes Past Qvanvtl-Ojudam-Nxrzyn Hx Patient Social History Substance use?: No Immunizations Up To Date Tetanus Booster (TDap): More than 5yrs First/Initial COVID19 Vaccinat: August 2020 Second COVID19 Vaccination Dominic: September 2020 Seasonal Allergies Seasonal Allergies: No Past Medical History Surgeries: Yes Gallbladder Respiratory: No Cardiac: No Neurological: No Reproductive Disorders: No Female Reproductive Disorders: Ovarian Cyst Sexually Transmitted Disease: No HIV/AIDS: No Genitourinary: No Bladder Infection Gastrointestinal: Yes Gastroesophageal Reflux Musculoskeletal: No Endocrine: No HEENT: No Cancer: No Psychosocial: Yes Anxiety Integumentary: No Blood Disorders: No Adverse Reaction/Blood Tranf: No Family Medical History No Pertinent Family Hx Physical Exam Vital Signs Vital Signs - First Documented 06/21/21 19:20 Temp 36.6 Pulse 107 Resp 20 B/P (MAP) 140/80 (100) Pulse Ox 100 O2 Delivery Room Air Capillary Refill : Height/Weight/BMI Height: '" Weight: 97lbs. oz. 43.246860gz; 24.00 BMI Method:Stated General Appearance: WD/WN, no apparent distress HEENT: PERRL/EOMI, normal ENT inspection, pharynx normal Neck: non-tender, full range of motion, supple, normal inspection Respiratory: chest non-tender, lungs clear, normal breath sounds, no respiratory distress, no accessory muscle use Cardiovascular: regular rate, rhythm, no edema, no murmur Gastrointestinal: normal bowel sounds, non tender, soft; No distended, No guarding Extremities: normal range of motion, non-tender, normal inspection, no pedal edema, no calf tenderness, normal capillary refill Back: normal inspection, no CVA tenderness, no vertebral tenderness Neurologic/Psychiatric: no motor/sensory deficits, alert, normal mood/affect Skin: normal color, warm/dry Lymphatic: no adenopathy Progress/Results/Core Measures Results/Orders My Orders Orders - YOLY ALLEN MD Urine Bedside (06/21/21 19:47) Vital Signs/I&O 06/21/21 06/21/21 19:20 19:59 Temp 36.6 Pulse 107 84 Resp 20 16 B/P (MAP) 140/80 (100) 131/73 Pulse Ox 100 99 O2 Delivery Room Air Room Air Progress Progress Note : Progress Note 31yoF with above history coming in due to nausea and transient lower abd cramping. ABCs intact and VSS on presentation. Abdominal exam normal and reassuring. test positive. Attempted POC ultrasound here and no visible intrauterine at this time. Likely too early given she is just at 4 weeks from LMP. Not having pain or bleeding. No clinical concern for ectopic at this time. Recommended outpatient OB followup and symptom control without meds for nausea. The patient was then discharged home in stable condition with strict return precautions. Departure Impression Primary Impression: Vomiting or nausea of Disposition: 01 HOME, SELF-CARE Condition: Stable Departure-Patient Inst. Decision time for Depature: 19:44 Referrals: NO,LOCAL PHYSICIAN (PCP/Family) Primary Care Physician Patient Instructions: Nausea and Vomiting of Add. Discharge Instructions: You were seen in the emergency department for nausea. You are , and likely just barely . Please follow-up with an OB doctor of your preference either in [place] or you can call the one we provided in this paperwork that is in [place]. You do need an ultrasound within the next couple weeks. If you have any vaginal bleeding, significant abdominal pain, or any other concerns either call your doctor or come back to the ER. For nausea buy over the counter vitamin B6 and take anywhere between 10-25mg every 8 hours while nauseous, and at least take it once daily as well for prevention. Also take over the counter doxylamine 12.5mg every 6-8 hours at the same time as the B6. I do recommend at a minimum of taking both of these at night time. YOLY ALLEN MD Jun 21, 2021 19:43
[2021-06-21 19:59] VITALS: BP 131/73
== END 2021-06-21 19:56 | disposition home or self-care (01) ==
LOC: EDUNIT# 19:11 → ER FS 19:12
DX: O21.0 Mild hyperemesis gravidarum (principal); K21.9 Gastro-esophageal reflux disease without esophagitis; Z3A.00 Weeks of gestation of pregnancy not specified; Z79.899 Other long term (current) drug therapy
CPT/HCPCS: 84703; 99282

== ENCOUNTER → 2021-07-02 | Outpatient (CLI) | payer SELFPAY | LOC: LABNPT 14:46 | PROVIDERS: ATTEND Registered Nurse Emergency | DX: O21.9 Vomiting of pregnancy, unspecified (principal); Z3A.00 Weeks of gestation of pregnancy not specified | CPT/HCPCS: 87088 ==

== ENCOUNTER 2021-09-10 18:01 | Emergency (ER) | payer SELFPAY ==
[2021-09-10] MEDS ORDERED: NS IV 1000 ML 1,000 ML IV STA (18:16)
[2021-09-10] MEDS ORDERED: LIDOCAINE 2% VISCOUS 15 ML UDC PO STA (18:16)
[2021-09-10] MEDS ORDERED: ANTACID SUSP 30 ML UDC (MYLANTA) PO STA (18:16)
[2021-09-10] MEDS ORDERED: FAMOTIDINE 20MG/2ML IV (PEPCID) IVP STA (18:19)
[2021-09-10 18:24] LABS: BASOPHILS % (AUTO) 0 % (0-10); EOSINOPHILS # (AUTO) 0.2 10^3/uL (0.0-0.3); EOSINOPHILS % (AUTO) 2 % (0-10); HEMATOCRIT 37 % (35-52); HEMOGLOBIN 12.9 g/dL (11.5-16.0); LYMPHOCYTES # (AUTO) 2.8 10^3/uL (1.0-4.0); LYMPHOCYTES % (AUTO) 24 % (12-44); MEAN CORPUSCULAR HEMOGLOBIN 32 pg (25-34); MEAN CORPUSCULAR HGB CONC 35 g/dL (32-36); MEAN CORPUSCULAR VOLUME 92 fL (80-99); MEAN PLATELET VOLUME 10.3 fL (9.0-12.2); MONOCYTES # (AUTO) 0.8 10^3/uL (0.0-1.0); MONOCYTES % (AUTO) 7 % (0-12); NEUTROPHILS # (AUTO) 7.4 10^3/uL (1.8-7.8); NEUTROPHILS % (AUTO) 66 % (42-75); PLATELET COUNT 276 10^3/uL (130-400); WHITE BLOOD COUNT 11.3 10^3/uL (4.3-11.0)
--- NOTE | 2021-09-10 18:25 | ED General ---
General Chief Complaint: Abdominal/GI Problems Stated Complaint: CP,SOB Nursing Triage Note: PT REPORTS EPIGASTRIC PAIN SINCE LAST PM. REPORTS SHE HAS TAKEN TUMS AND NEXIUM, PT IS 17 WEEKS Source of Information: Patient History of Present Illness Date Seen by Provider: Sep 10, 2021 Time Seen by Provider: 18:04 Initial Comments 31-year-old female presenting with complaints of epigastric sharp pain that goes up to the middle of her chest. She states this is been constant since last night. She has tried taking Tums and Nexium without improvement. The pain is worse when she lays down and when she sits up. She is 17 weeks G1, P0. She states her due date is February 16. She has not established with an OB doctor locally and has only been seen in [place] at the [facility]. She has nausea chronically during and takes Phenergan for that. She also takes meclizine at times for dizziness. She denies any pain or burning with urination. She states she might be slightly constipated. She has not noticed any difference with eating or drinking. She denies having pain like this in the past. Timing/Duration: 24 Hours Severity: Severe Modifying Factors: worse with Movement (laying down and sitting up makes it worse) Associated Systoms: No Chest Pain, No Cough, No Diaphoresis, No Fever/Chills, No Headaches, No Loss of Appetite, No Malaise; Nausea/Vomiting (some chronic nausea with ); No Seizure; Shortness of Air; No Syncope, No Weakness Allergies and Home Medications Allergies Coded Allergies: No Known Drug Allergies (Unverified , 02/26/13) Patient Home Medication List Home Medication List Reviewed: Yes Baclofen (Baclofen) 10 Mg Tablet, 10 MG PO TID PRN for MUSCLE SPASMS Prescribed by: VIPIN NASH on 12/14/203 Famotidine (Pepcid) 20 Mg Tablet, 20 MG PO BID Prescribed by: HANNAH ROCHA on 10/26/202123 Famotidine (Famotidine) 20 Mg Tablet, 20 MG PO BID Prescribed by: VIPIN NASH on 09/10/211916 Hydrocodone/Acetaminophen (Hydrocodone-Acetamin 5-325 mg) 1 Each Tablet, 1 TAB PO Q6H PRN for PAIN-SEVERE (8-10) Prescribed by: VIPIN NASH on 12/14/202343 Ibuprofen (Ibuprofen) 800 Mg Tablet, 800 MG PO Q8H PRN for PAIN Prescribed by: VIPIN CALLEJASRT on 12/14/202342 Naproxen (Naprosyn) 500 Mg Tablet, 1 EACH PO TID PRN Prescribed by: PREET STAPLETON on 05/05/138 Nitrofurantoin/Nitrofuran Mac (Macrobid) 100 Mg Capsule, 1 EACH PO BID Prescribed by: PREET STAPLETON on 05/05/138 Ondansetron (Ondansetron Odt) 4 Mg Tab.rapdis, 4 MG PO TID Prescribed by: HANNAH ROCHA on 10/26/202123 Ondansetron (Ondansetron Odt) 4 Mg Tab.rapdis, 4 MG PO Q6H PRN for NAUSEA/VOMITING Prescribed by: VIPIN CALLEJASRT on 04/11/212110 Phenazopyridine Hcl (Pyridium) 200 Mg Tablet, 1 EACH PO TID PRN Prescribed by: PREET STAPLETON on 05/05/138 Sulfamethoxazole/Trimethoprim (Bactrim Ds Tablet) 1 Each Tablet, 1 EACH PO BID Prescribed by: VIPIN CALLEJASRT on 04/11/212110 Tamsulosin HCl (Flomax) 0.4 Mg Cap, 0.4 MG PO DAILY Prescribed by: WANDA CONNER on 12/02/20 153 Topiramate (Topamax) 25 Mg Tablet, 2 TAB PO BID, (Reported) Entered as Reported by: ALEYDA GOMEZ on 02/26/13 1218 Review of Systems Review of Systems Constitutional: No chills, No fever EENTM: no symptoms reported Respiratory: see HPI Cardiovascular: no symptoms reported; No chest pain Gastrointestinal: abdominal pain (sharp epigastric abdominal pain); No diarrhea; nausea; No vomiting Genitourinary: No dysuria, No frequency Expected Date of Delivery: Feb 16, 2022 Musculoskeletal: no symptoms reported Skin: no symptoms reported Psychiatric/Neurological: Anxiety Hematologic/Lymphatic: Denies Blood Clots, Denies Easy Bleeding, Denies Easy Bruising Past Nxpumsk-Hipkyr-Aeqzvj Hx Patient Social History Tobacco Use?: Yes Tobacco type used: Cigarettes Smoking Status: Current Everyday Smoker Use of E-Cig and/or Vaping dev: No Substance use?: No Alcohol Use?: No Pt feels they are or have been: No Immunizations Up To Date Tetanus Booster (TDap): More than 5yrs First/Initial COVID19 Vaccinat: 09/13 Second COVID19 Vaccination Dominic: 09/13 Third COVID19 Vaccination Date: 09/13 Seasonal Allergies Seasonal Allergies: No Past Medical History Surgery/Hospitalization HX: Cholecystectomy Surgeries: Yes Gallbladder Respiratory: No Cardiac: No Neurological: No Expected Date of Delivery: Feb 16, 2022 Reproductive Disorders: No Female Reproductive Disorders: Ovarian Cyst Sexually Transmitted Disease: No HIV/AIDS: No Genitourinary: No Bladder Infection Gastrointestinal: Yes Gastroesophageal Reflux Musculoskeletal: No Endocrine: No HEENT: No Cancer: No Psychosocial: Yes Anxiety Integumentary: No Blood Disorders: No Adverse Reaction/Blood Tranf: No Family Medical History No Pertinent Family Hx Physical Exam Vital Signs Vital Signs - First Documented 09/10/21 18:05 Temp 36.6 Pulse 105 Resp 16 B/P (MAP) 126/97 (107) Pulse Ox 99 O2 Delivery Room Air Capillary Refill : Less Than 3 Seconds Height, Weight, BMI Height: '" Weight: 97lbs. oz. 43.126060uv; 25.00 BMI Method:Stated General Appearance: No Apparent Distress, Anxious HEENT: PERRL/EOMI, Pharynx Normal Neck: Full Range of Motion, Normal Inspection, Non Tender, Supple Respiratory: Chest Non Tender, Lungs Clear, Normal Breath Sounds, No Accessory Muscle Use, No Respiratory Distress Cardiovascular: Regular Rate, Rhythm, Normal Peripheral Pulses Gastrointestinal: Normal Bowel Sounds, No Pulsatile Mass, Soft; No Distended, No Guarding, No Rebound; Tenderness (epigastric area) Rectal: Deferred Back: No CVA Tenderness, No Vertebral Tenderness Extremity: Normal Capillary Refill, Normal Inspection, No Pedal Edema Neurologic/Psychiatric: Alert, Oriented x3, color artist II-XII Norm as Tested Skin: Normal Color, Warm/Dry Progress/Results/Core Measures Suspected Sepsis SIRS Temperature: Pulse: 105 Respiratory Rate: 16 Laboratory Tests 09/10/21 18:19: White Blood Count 11.3H Blood Pressure 126 /97 Mean: 107 Laboratory Tests 09/10/21 18:19: Creatinine 0.49L, INR Comment 0.9, Platelet Count 276, Total Bilirubin 0.2 Results/Orders Lab Results Laboratory Tests Test 09/10/21 18:19 09/10/21 18:31 Range/Units White Blood Count 11.3 H 4.3-11.0 10^3/uL Red Blood Count 4.01 3.80-5.11 10^6/uL Hemoglobin 12.9 11.5-16.0 g/dL Hematocrit 37 35-52 % Mean Corpuscular Volume 92 80-99 fL Mean Corpuscular Hemoglobin 32 25-34 pg Mean Corpuscular Hemoglobin Concent 35 32-36 g/dL Red Cell Distribution Width 13.2 10.0-14.5 % Platelet Count 276 130-400 10^3/uL Mean Platelet Volume 10.3 9.0-12.2 fL Immature Granulocyte % (Auto) 0 % Neutrophils (%) (Auto) 66 42-75 % Lymphocytes (%) (Auto) 24 12-44 % Monocytes (%) (Auto) 7 0-12 % Eosinophils (%) (Auto) 2 0-10 % Basophils (%) (Auto) 0 0-10 % Neutrophils # (Auto) 7.4 1.8-7.8 10^3/uL Lymphocytes # (Auto) 2.8 1.0-4.0 10^3/uL Monocytes # (Auto) 0.8 0.0-1.0 10^3/uL Eosinophils # (Auto) 0.2 0.0-0.3 10^3/uL Basophils # (Auto) 0.0 0.0-0.1 10^3/uL Immature Granulocyte # (Auto) 0.0 0.0-0.1 10^3/uL Prothrombin Time 13.0 12.2-14.7 SEC INR Comment 0.9 0.8-1.4 Activated Partial Thromboplast Time 26 24-35 SEC Sodium Level 137 135-145 MMOL/L Potassium Level 3.5 L 3.6-5.0 MMOL/L Chloride Level 105 98-107 MMOL/L Carbon Dioxide Level 20 L 21-32 MMOL/L Anion Gap 12 5-14 MMOL/L Blood Urea Nitrogen 4 L 7-18 MG/DL Creatinine 0.49 L 0.60-1.30 MG/DL Estimat Glomerular Filtration Rate 130 BUN/Creatinine Ratio 8 Glucose Level 120 H 70-105 MG/DL Calcium Level 9.4 8.5-10.1 MG/DL Corrected Calcium 9.7 8.5-10.1 MG/DL Magnesium Level 2.0 1.6-2.4 MG/DL Total Bilirubin 0.2 0.1-1.0 MG/DL Aspartate Amino Transf (AST/SGOT) 16 5-34 U/L Alanine Aminotransferase (ALT/SGPT) 13 0-55 U/L Alkaline Phosphatase 74 40-136 U/L Troponin I < 0.30 <0.30 NG/ML Pro-B-Type Natriuretic Peptide 27.6 <75.0 PG/ML Total Protein 6.8 6.4-8.2 GM/DL Albumin 3.6 3.2-4.5 GM/DL Lipase 15 8-78 U/L Urine Color YELLOW Urine Clarity CLEAR Urine pH 6.0 5-9 Urine Specific [place] 1.015 L 1.016-1.022 Urine Protein NEGATIVE NEGATIVE Urine Glucose (UA) NEGATIVE NEGATIVE Urine Ketones NEGATIVE NEGATIVE Urine Nitrite NEGATIVE NEGATIVE Urine Bilirubin NEGATIVE NEGATIVE Urine Urobilinogen 0.2 < = 1.0 MG/DL Urine Leukocyte Esterase NEGATIVE NEGATIVE Urine RBC (Auto) NEGATIVE NEGATIVE Urine RBC NONE /HPF Urine WBC 10-25 H /HPF Urine Squamous Epithelial Cells 25-50 H /HPF Urine Crystals NONE /LPF Urine Bacteria LARGE H /HPF Urine Casts NONE /LPF Urine Mucus MODERATE H /LPF Urine Culture Indicated NO My Orders Orders - VIPIN NASH MD Ekg Tracing (09/10/21 18:05) Cbc With Automated Diff (09/10/21 18:16) Magnesium (09/10/21 18:16) Comprehensive Metabolic Panel (09/10/21 18:16) Protime With Inr (09/10/21 18:16) Partial Thromboplastin Time (09/10/21 18:16) Monitor-Rhythm Ecg Trace Only (09/10/21 18:16) Ed Iv/Invasive Line Start (09/10/21 18:16) Lipase (09/10/21 18:16) Troponin I Fs (09/10/21 18:16) Probnp Fs (09/10/21 18:16) Lidocaine 2% Viscous 15 Ml (Xylocaine Vi (09/10/21 18:16) Antacid Suspension (Mylanta Suspension (09/10/21 18:16) Ns Iv 1000 Ml (Sodium Chloride 0.9%) (09/10/21 18:16) Ua Culture If Indicated (09/10/21 18:16) Heart Tones (09/10/21 18:16) Famotidine Injection (Pepcid Injection) (09/10/21 18:19) Vital Signs/I&O 09/10/21 09/10/21 18:05 19:21 Temp 36.6 Pulse 105 87 Resp 16 15 B/P (MAP) 126/97 (107) 115/70 Pulse Ox 99 99 O2 Delivery Room Air Room Air Capillary Refill : Less Than 3 Seconds Blood Pressure Mean: 107 Progress Note #1: Progress Note heart tones 140s. Oxygen saturation of patient 99-100 %. She does have tenderness to palpation over epigastric area of abdomen, without rebound. Will check ECG and basic labs with urine. try Pepcid 20 mg IV, GI cocktail and 1 Liter NS IVF for hydration. Progress Note #2: Progress Note Labs are all stable without acute significant abnormality. No sign of infection with her urine. Her chemistry panel did not show any elevation of her liver enzymes or renal function. Her electrolytes and cardiac enzymes were also negative. She had improvement in her symptoms with treatment in the ED. Reviewed with patient and her significant other about low-fat bland diet and changes to help with gastritis versus peptic ulcer disease. Encouraged to follow-up with an OB doctor for continued care. Counseled on some diet and position changes that could be done to try and help with the pain from her stomach. ECG Initial ECG Impression Date: Sep 10, 2021 Initial ECG Impression Time: 18:14 Initial ECG Rate: 92 Initial ECG Rhythm: Normal Sinus Initial ECG Comparisson: No Previous ECG Available Comment Normal sinus rhythm with a heart rate of 92 bpm. MA interval 133 ms. QT interval 348 ms with a QTc interval 431 ms. There is no acute ST elevation. There is no prior tracing available for comparison. Departure Impression Primary Impression: Epigastric abdominal pain Additional Impressions: Incidental Gastritis Qualified Codes: K29.00 - Acute gastritis without bleeding Disposition: HOME, SELF-CARE Condition: Stable Departure-Patient Inst. Decision time for Depature: 19:13 Referrals: NO,LOCAL PHYSICIAN (PCP) Primary Care Physician MORE HORN DO [facility] [place] [phone] to ask for OB doctor for follow up Patient Instructions: Gastritis ED, Acid Reflux, Adult and Adolescent ED, Ulcer and Gastritis Diet Add. Discharge Instructions: Try following a bland low fat diet and check with OB doctor about gastritis and possible ulcer with your stomach. Try to sleep with your head elevated 30-45 degrees to help limit reflux. Add Pepcid (Famotidine) to your medicines to help with gastritis All discharge instructions reviewed with patient and/or family. Voiced understanding. Scripts Famotidine (Famotidine) 20 Mg Tablet 20 MG PO BID for gastritis for 30 Days, #60 TAB 0 Refills Prov: VIPIN NASH MD 09/10/21 VIPIN NASH MD Sep 10, 2021 18:25
[2021-09-10 18:37] LABS: INR 0.9 (0.8-1.4)
[2021-09-10 18:37] LABS: BILIRUBIN,URINE NEGATIVE (NEGATIVE); CLARITY,URINE CLEAR; COLOR,URINE YELLOW; GLUCOSE, URINE (UA) NEGATIVE (NEGATIVE); KETONES,URINE NEGATIVE (NEGATIVE); LEUKOCYTE ESTERASE ,URINE NEGATIVE (NEGATIVE); NITRITE,URINE NEGATIVE (NEGATIVE); PROTEIN,URINE NEGATIVE (NEGATIVE)
[2021-09-10 18:40] LABS: BACTERIA,URINE LARGE /HPF; SQUAMOUS EPITHELIAL CELL,UR 25-50 /HPF
[2021-09-10 18:44] LABS: CREATININE SERUM 0.49 MG/DL (0.60-1.30); POTASSIUM 3.5 MMOL/L (3.6-5.0)
[2021-09-10 18:45] LABS: ALBUMIN 3.6 GM/DL (3.2-4.5); BILIRUBIN,TOTAL 0.2 MG/DL (0.1-1.0); CALCIUM 9.4 MG/DL (8.5-10.1); TOTAL PROTEIN 6.8 GM/DL (6.4-8.2)
[2021-09-10] MEDS ORDERED: FAMO20TA5 PO (19:17)
[2021-09-10 19:21] VITALS: BP 115/70
== END 2021-09-10 19:21 | disposition home or self-care (01) ==
LOC: EDUNIT# 18:01 → ER FS 18:02
DX: O99.612 Diseases of the digestive system complicating pregnancy, second trimester (principal); K29.70 Gastritis, unspecified, without bleeding; K21.9 Gastro-esophageal reflux disease without esophagitis; F17.210 Nicotine dependence, cigarettes, uncomplicated; Z3A.17 17 weeks gestation of pregnancy
CPT/HCPCS: 36415; 80053; 81000; 83690; 83735; 83880; 84484; 85025; 85610; 85730; 93005

== ENCOUNTER 2021-10-21 21:58 | Outpatient (CLI) | payer MEDICAID ==
[~2021-10-21] VITALS: Ht 165.1 cm; Wt 72.8 kg
[~2021-10-21 21:58] MED LIST changes: +FAMO20TA5 PO
[2021-10-21 22:19] VITALS: BP 121/74
[2021-10-21 22:26] LABS: BILIRUBIN,URINE NEGATIVE (NEGATIVE); CLARITY,URINE CLEAR; COLOR,URINE YELLOW; GLUCOSE, URINE (UA) NEGATIVE (NEGATIVE); KETONES,URINE NEGATIVE (NEGATIVE); LEUKOCYTE ESTERASE ,URINE NEGATIVE (NEGATIVE); NITRITE,URINE NEGATIVE (NEGATIVE); PROTEIN,URINE NEGATIVE (NEGATIVE)
[2021-10-21 22:39] LABS: BACTERIA,URINE NEGATIVE /HPF; SQUAMOUS EPITHELIAL CELL,UR 0-2 /HPF
[2021-10-21] MEDS ORDERED: PREN-142 PO (23:07)
--- NOTE | 2021-10-22 07:53 | Physician Query-Final Dx ---
NAYELI,10/22/21 0753: Clinic Account Progress/Dx Physician Query: Please give diagnosis Please include # weeks gestation Date of Service Oct 21, 2021 at 21:58 MIRA ROSARIO DO 10/22/21 1012: Clinic Account Progress/Dx DIAGNOSIS: Diagnosis 23 week IUP Pelvic pain, pressure NAYELI,JulOct 22, 2021 07:53 MIRA ROSARIO DO Oct 22, 2021 10:12
== END 2021-10-21 23:15 | disposition home or self-care (01) ==
LOC: WSo 21:58 → LDRP 21:58 → WSo 23:15
PROVIDERS: ATTEND Obstetrics & Gynecology
DX: O26.892 Other specified pregnancy related conditions, second trimester (principal); R10.2 Pelvic and perineal pain; Z3A.23 23 weeks gestation of pregnancy
CPT/HCPCS: 81000; G0463; 99212

== ENCOUNTER 2021-10-25 20:41 | Emergency (ER) | payer MEDICAID, OTHER ==
[~2021-10-25] VITALS: Ht 165 cm; Wt 73.0 kg
[~2021-10-25 20:41] MED LIST changes: +PREN-142 PO
[2021-10-25 20:46] VITALS: BP 149/94
--- NOTE | 2021-10-25 21:04 | ED Upper Extremity ---
General Chief Complaint: Upper Extremity Stated Complaint: L RING FINGER PAIN Source: patient Exam Limitations: no limitations History of Present Illness Date Seen by Provider: Oct 25, 2021 Time Seen by Provider: 20:46 Initial Comments 31yoF that is 23 weeks coming in due to the inability to get her ring from finger off. Noticed it was stuck today. Attempt lubricant, soap, dental floss, and nothing can get it off. Not having any pain at this time. Allergies and Home Medications Allergies Coded Allergies: No Known Drug Allergies (Unverified , 02/26/13) Patient Home Medication List Home Medication List Reviewed: Yes Vit No.124/Iron/FA ( Vitamin Tablet) 1 Each Tablet, 1 EACH PO DAILY, (Reported) Entered as Reported by: NILSON LYON on 10/21/217 Discontinued Medications Baclofen (Baclofen) 10 Mg Tablet, 10 MG PO TID PRN for MUSCLE SPASMS Discontinued Reason: No Longer Taking Prescribed by: VIPIN Mccauley ENYART on 12/14/202342 Famotidine (Pepcid) 20 Mg Tablet, 20 MG PO BID Discontinued Reason: No Longer Taking Prescribed by: HANNAH ROCHA on 10/26/202123 Famotidine (Famotidine) 20 Mg Tablet, 20 MG PO BID Discontinued Reason: No Longer Taking Prescribed by: VIPIN Mccauley ENYART on 09/10/211916 Hydrocodone/Acetaminophen (Hydrocodone-Acetamin 5-325 mg) 1 Each Tablet, 1 TAB PO Q6H PRN for PAIN-SEVERE (8-10) Discontinued Reason: No Longer Taking Prescribed by: VIPIN Mccauley ENYART on 12/14/20 234 Ibuprofen (Ibuprofen) 800 Mg Tablet, 800 MG PO Q8H PRN for PAIN Discontinued Reason: No Longer Taking Prescribed by: VIPIN Mccauley ENYART on 12/14/20 234 Naproxen (Naprosyn) 500 Mg Tablet, 1 EACH PO TID PRN Discontinued Reason: No Longer Taking Prescribed by: PREET STAPLETON on 05/05/138 Nitrofurantoin/Nitrofuran Mac (Macrobid) 100 Mg Capsule, 1 EACH PO BID Discontinued Reason: No Longer Taking Prescribed by: PREET STAPLETON on 05/05/138 Ondansetron (Ondansetron Odt) 4 Mg Tab.rapdis, 4 MG PO TID Discontinued Reason: No Longer Taking Prescribed by: HANNAH ROCHA on 10/26/202123 Ondansetron (Ondansetron Odt) 4 Mg Tab.rapdis, 4 MG PO Q6H PRN for NAUSEA/VOMITING Discontinued Reason: No Longer Taking Prescribed by: VIPIN CALLEJASRT on 04/11/212110 Phenazopyridine Hcl (Pyridium) 200 Mg Tablet, 1 EACH PO TID PRN Discontinued Reason: No Longer Taking Prescribed by: PREET STAPLETON on 05/05/13 0009 Sulfamethoxazole/Trimethoprim (Bactrim Ds Tablet) 1 Each Tablet, 1 EACH PO BID Discontinued Reason: No Longer Taking Prescribed by: VIPIN Mccauley ENYART on 04/11/212110 Tamsulosin HCl (Flomax) 0.4 Mg Cap, 0.4 MG PO DAILY Discontinued Reason: No Longer Taking Prescribed by: WANDA CONNER on 12/02/20 153 Topiramate (Topamax) 25 Mg Tablet, 2 TAB PO BID, (Reported) Discontinued Reason: No Longer Taking Entered as Reported by: ALEYDA GOMEZ on 02/26/13 1218 Review of Systems Constitutional: No chills, No fever EENTM: No blurred vision Respiratory: No cough Cardiovascular: No chest pain Gastrointestinal: No abdominal pain Genitourinary: no symptoms reported Musculoskeletal: see HPI Skin: no symptoms reported Psychiatric/Neurological: No Symptoms Reported All Other Systems Reviewed Negative Unless Noted: Yes Past Esawyhu-Tqfljg-Pfffez Hx Patient Social History Tobacco Use?: No Immunizations Up To Date Tetanus Booster (TDap): More than 5yrs First/Initial COVID19 Vaccinat: 09/13 Second COVID19 Vaccination Dominic: 09/13 Third COVID19 Vaccination Date: 09/13 Seasonal Allergies Seasonal Allergies: No Past Medical History Surgery/Hospitalization HX: Cholecystectomy Surgeries: Yes Gallbladder Respiratory: No Cardiac: No Neurological: No Reproductive Disorders: No Female Reproductive Disorders: Ovarian Cyst Sexually Transmitted Disease: No HIV/AIDS: No Genitourinary: No Bladder Infection Gastrointestinal: Yes Gastroesophageal Reflux Musculoskeletal: No Endocrine: No HEENT: No Cancer: No Psychosocial: Yes Anxiety Integumentary: No Blood Disorders: No Adverse Reaction/Blood Tranf: No Family Medical History No Pertinent Family Hx Physical Exam Vital Signs Vital Signs - First Documented 10/25/21 20:46 Temp 36.3 Pulse 103 Resp 18 B/P (MAP) 149/94 (112) Pulse Ox 98 O2 Delivery Room Air Capillary Refill : Height, Weight, BMI Height: '" Weight: 97lbs. oz. 43.692789cp; 26.70 BMI Method:Stated General Appearance: WD/WN, no apparent distress HEENT: PERRL/EOMI, normal ENT inspection, pharynx normal Neck: non-tender, full range of motion, supple, normal inspection Cardiovascular: regular rate, rhythm, no edema, no murmur Respiratory: chest non-tender, lungs clear, normal breath sounds, no respiratory distress, no accessory muscle use Gastrointestinal: normal bowel sounds, non tender, soft; No distended, No guarding, No rebound Back: normal inspection Shoulder: normal inspection Elbow/Forearm: normal inspection Wrist: Yes normal inspection Hand: Left (Left ring finger with ring stuck on it with slightly swollen digit) Neurologic/Tendon: normal sensation, normal motor functions, normal tendon functions Neurologic/Psychiatric: no motor/sensory deficits, alert, normal mood/affect Skin: normal color, warm/dry Lymphatic: no adenopathy Progress/Results/Core Measures Results/Orders Vital Signs/I&O 10/25/21 20:46 Temp 36.3 Pulse 103 Resp 18 B/P (MAP) 149/94 (112) Pulse Ox 98 O2 Delivery Room Air Progress Progress Note : Progress Note 31-year-old female coming in due to her wedding ring stuck on her left ring finger. Attempted to take it off with compression, lubricant, and no other methods seem to work. We opted to cut the ring off without difficulty. She tolerated this well. There is no skin breakdown. She was then discharged home in stable condition. Departure Impression Primary Impression: Finger swelling Disposition: HOME, SELF-CARE Condition: Stable Departure-Patient Inst. Decision time for Depature: 21:20 Referrals: BUNNY KITCHEN MD (PCP/Family) Primary Care Physician Patient Instructions: How to Adapt to Physical Changes During Add. Discharge Instructions: I recommend icing your finger and taking Tylenol tonight. I do recommend not wearing any rings until the is over. YOLY ALLEN MD Oct 25, 2021 21:04
== END 2021-10-25 21:24 | disposition home or self-care (01) ==
LOC: EDUNIT# 20:41 → ER FS 20:42
DX: O26.892 Other specified pregnancy related conditions, second trimester (principal); R22.32 Localized swelling, mass and lump, left upper limb; Z3A.23 23 weeks gestation of pregnancy
CPT/HCPCS: 99281

== ENCOUNTER 2021-11-27 14:35 | Outpatient (CLI) | payer SELFPAY ==
[~2021-11-27] VITALS: Ht 165.1 cm; Wt 76.7 kg
[2021-11-27 15:00] VITALS: BP 131/73
[2021-11-27 15:02] VITALS: BP 131/73
[2021-11-27 15:16] LABS: BILIRUBIN,URINE NEGATIVE (NEGATIVE); CLARITY,URINE CLEAR; COLOR,URINE YELLOW; GLUCOSE, URINE (UA) TRACE (NEGATIVE); KETONES,URINE NEGATIVE (NEGATIVE); LEUKOCYTE ESTERASE ,URINE NEGATIVE (NEGATIVE); NITRITE,URINE NEGATIVE (NEGATIVE); PH,URINE 5.5 (5-9); PROTEIN,URINE 1+ (NEGATIVE)
[2021-11-27 15:30] LABS: BACTERIA,URINE FEW /HPF; SQUAMOUS EPITHELIAL CELL,UR >50 /HPF
[2021-11-27] MEDS ORDERED: ACETAMINOPHEN 500 MG TAB (TYLENOL) ONE (15:42)
[2021-11-27] MEDS ORDERED: ACETAMINOPHEN 500 MG TAB (TYLENOL) PO NR (15:45)
[2021-11-27] MEDS ORDERED: PROM50TA3 PO (15:49)
[2021-11-27 16:00] VITALS: BP 131/73
[2021-11-27 16:09] VITALS: BP 117/82
--- NOTE | 2021-11-29 08:42 | Physician Query-Final Dx ---
Clinic Account Progress/Dx Physician Query: Please give diagnosis Please include # weeks gestation Date of Service November 27, 2021 at 14:35 ,JulNovember 29, 2021 08:42
== END 2021-11-27 16:08 ==
LOC: WSo 14:35 → LDRP 14:35 → WSo 16:08
PROVIDERS: ATTEND Obstetrics & Gynecology
DX: O62.9 Abnormality of forces of labor, unspecified (principal); Z3A.28 28 weeks gestation of pregnancy
CPT/HCPCS: 81000; 87088; 99212

== ENCOUNTER 2022-02-13 15:25 | Emergency (ER) | payer MEDICAID, OTHER ==
[~2022-02-13] VITALS: Ht 165 cm; Wt 32.0 kg
[~2022-02-13 15:25] MED LIST changes: +PROM50TA3 PO
--- NOTE | 2022-02-13 15:33 | ED Upper Extremity ---
General Stated Complaint: RT HAND INJ Source: patient History of Present Illness Date Seen by Provider: Feb 13, 2022 Time Seen by Provider: 15:33 Initial Comments 31-year-old female presenting with complaints of pain to the right hand from her pinky to her wrist. She states that she had hit her hand on a car door on Monday when she was having an argument with her significant other. Since then she has had increased pain. She has some much pain that she cannot brass pickler anything without having pain or dropping it. She is having difficulty caring for her 3-week-old child due to the pain. She took Tylenol on Monday when it happened but has not had anything since then. She reports coming to the emergency department yesterday but left rather than waiting to be seen. She returned today to see about the hand since she still had pain and was having difficulty lifting anything. Onset: other (MondayFebruary 11) Pain/Injury Location: right hand Method of Injury: direct blow (hit against car door) Modifying Factors: Worse With Movement Allergies and Home Medications Allergies Coded Allergies: No Known Drug Allergies (Unverified , 02/26/13) Patient Home Medication List Home Medication List Reviewed: Yes Hydrocodone/Acetaminophen (Hydrocodone-Acetamin 5-325 mg) 5 Mg-325 Mg Tablet, 1 TAB PO Q6H PRN for PAIN-SEVERE (8-10) Prescribed by: VIPIN NASH on 02/13/22 1632 Vit No.124/Iron/FA ( Vitamin Tablet) 1 Each Tablet, 1 EACH PO DAILY, (Reported) Entered as Reported by: NILSON LYON on 10/21/21 2307 Promethazine HCl (Promethazine HCl) 50 Mg Tablet, 25 MG PO q6 PRN for NAUSEA/VOMITING, (Reported) Entered as Reported by: IVAN FELIZ on 11/27/21 1549 Review of Systems Constitutional: No chills, No fever EENTM: no symptoms reported Respiratory: no symptoms reported Cardiovascular: no symptoms reported Gastrointestinal: no symptoms reported Genitourinary: no symptoms reported Musculoskeletal: see HPI Skin: No rash Psychiatric/Neurological: Denies Numbness, Denies Paresthesia Past Oogvkes-Lnptnt-Ygkntg Hx Immunizations Up To Date Tetanus Booster (TDap): More than 5yrs First/Initial COVID19 Vaccinat: 09/13 Second COVID19 Vaccination Dominic: 09/13 Third COVID19 Vaccination Date: 09/13 Seasonal Allergies Seasonal Allergies: No Past Medical History Surgery/Hospitalization HX: cholecystectomy, anxiety Surgeries: Yes Gallbladder Respiratory: No Cardiac: No Neurological: No Reproductive Disorders: No Female Reproductive Disorders: Ovarian Cyst Sexually Transmitted Disease: No HIV/AIDS: No Genitourinary: No Bladder Infection Gastrointestinal: Yes Gastroesophageal Reflux Musculoskeletal: No Endocrine: No HEENT: No Cancer: No Psychosocial: Yes Anxiety Integumentary: No Blood Disorders: No Adverse Reaction/Blood Tranf: No Family Medical History No Pertinent Family Hx Physical Exam Vital Signs Vital Signs - First Documented 02/13/22 15:29 Temp 36.2 Pulse 100 Resp 14 Pulse Ox 98 O2 Delivery Room Air Capillary Refill : Height, Weight, BMI Height: '" Weight: 97lbs. oz. 43.628684jw; 28.13 BMI Method:Stated General Appearance: WD/WN, no apparent distress HEENT: PERRL/EOMI Cardiovascular: normal peripheral pulses Elbow/Forearm: normal inspection, non-tender, no evidence of injury, normal ROM Wrist: Yes normal inspection, Yes non-tender, Yes no evidence of injury, Yes normal ROM Hand: Right, soft tissue tenderness (5th metacarpal right hand), swelling (5th metacarpal right hand) Neurologic/Tendon: normal sensation, normal motor functions Neurologic/Psychiatric: alert, oriented x 3 Skin: warm/dry Procedures/Interventions Splinting and Joint Reduction : Location: Right hand Pre-Proc Neuro Vasc Exam: normal Post-Proc Neuro Vasc Exam: normal Progress After obtaining verbal consent from the patient the right hand and forearm were placed in ulnar gutter splint. This is secured with an Foreign bandage. Patient was neurovascular and tendon intact both pre and post splinting. Counseled on keeping the splint clean and dry and above heart level to help with pain and swelling. See orthopedics within the week to get switched over to a cast. Progress/Results/Core Measures Results/Orders My Orders Orders - VIPIN NASH MD Ibuprofen Tablet (Motrin Tablet) (02/13/22 15:42) Ice: Apply To Affected Area (02/13/22 15:42) Elevate Affected Extremity (02/13/22 15:42) Hand 3 View Right (02/13/22 15:42) Ed Ortho/Other Supplies Order (02/13/22 16:05) Ortho Glass (02/13/22 16:05) Orthopedic Equiment (02/13/22 16:05) Vital Signs/I&O Progress Progress Note #1: Progress Note Ibuprofen and ice to help with pain and swelling to the right hand. X-rays to look for fracture or bony abnormality Progress Note #2: Progress Note X-rays do demonstrate essentially nondisplaced fracture of the proximal base of the right fifth metacarpal. We will place an OCL splint and use a sling for support. Counseled on follow-up and return precautions. Prescribed a few hydrocodone for pain. Check with the orthopedic clinic as they should be able to follow and change her over to a cast however if she has more problems they may need her to see a more highly specialized orthopedic or plastic surgeon that treats hands specifically Diagnostic Imaging Diagonstic Imaging: Xray Plain Films/CT/US/NM/MRI: hand Comments [facility] [place] NAME: HUSSEIN COBIAN [facility] REC#: [id number] PT STATUS: REG ER : 1990 PHYSICIAN: VIPIN NASH MD ADMIT DATE: 02/13/22/ER FS Signed Date of Exam:02/13/22 HAND 3 VIEW RIGHT INDICATION: Pain. COMPARISON: None available. TECHNIQUE: Three radiographs of the right hand dated February 13, 2022. FINDINGS: Recent appearing fracturing involving the base of the 5th metacarpal is identified. This is best seen on the oblique radiograph. No additional fracture or dislocation. No destructive osseous process. Carpal alignment is well maintained. No suspicious radiopaque foreign body. IMPRESSION: Recent appearing essentially nondisplaced fracturing involving the base of the 5th metacarpal is suggested. Recommend correlation for focal pain. Dictated by: Dictated on workstation # [id number] Dict: 02/13/22 1602 Trans: 02/13/22 1633 [facility] [id number] Interpreted by: SHAILESH GAVIRIA MD Electronically signed by: SHAILESH GAVIRIA MD 02/13/22 4579 Reviewed: Reviewed by Me Departure Impression Primary Impression: Displaced fracture of base of fifth metacarpal bone, right hand, initial encounter for closed fracture Additional Impression: Contusion of right hand, initial encounter Disposition: HOME, SELF-CARE Condition: Stable Departure-Patient Inst. Decision time for Depature: 16:31 Referrals: MADELINE EVANS,LOCAL PHYSICIAN (PCP) Primary Care Physician MIRA HER MD Patient Instructions: Splint Care ED, Hand Fracture ED Add. Discharge Instructions: Keep splint clean and dry. Elevate hand above heart level to help with swelling and pain. Follow up with Orthopedics this week for the fracture. You may just need to be changed into a cast or they may need to have a surgical procedure to treat the fracture. Scripts Hydrocodone/Acetaminophen (Hydrocodone-Acetamin 5-325 mg) 5 Mg-325 Mg Tablet 1 TAB PO Q6H PRN for PAIN-SEVERE (8-10) for 5 Days, #20 TAB 0 Refills Prov: VIPIN NASH MD 02/13/22 VIPIN NASH MD Feb 13, 2022 15:33
[2022-02-13] MEDS ORDERED: IBUPROFEN 800 MG (MOTRIN) TAB PO STA (15:42)
--- NOTE | 2022-02-13 16:11 | Diagnostic Imaging Report ---
INDICATION: Pain. COMPARISON: None available. TECHNIQUE: Three radiographs of the right hand dated February 13, 2022. FINDINGS: Recent appearing fracturing involving the base of the 5th metacarpal is identified. This is best seen on the oblique radiograph. No additional fracture or dislocation. No destructive osseous process. Carpal alignment is well maintained. No suspicious radiopaque foreign body. IMPRESSION: Recent appearing essentially nondisplaced fracturing involving the base of the 5th metacarpal is suggested. Recommend correlation for focal pain. Dictated by: Dictated on workstation # [id number]
[2022-02-13] MEDS ORDERED: ACHD5005 PO (16:32)
== END 2022-02-13 17:05 | disposition home or self-care (01) ==
LOC: EDUNIT# 15:25 → ER FS 15:27
DX: S62.316A Displaced fracture of base of fifth metacarpal bone, right hand, initial encounter for closed fracture (principal); W22.8XXA Striking against or struck by other objects, initial encounter
CPT/HCPCS: 29125; 73130; 99284; A4565

== ENCOUNTER 2022-03-25 18:28 | Emergency (ER) | payer MEDICAID ==
[~2022-03-25] VITALS: Ht 165.1 cm; Wt 69.9 kg
--- NOTE | 2022-03-25 19:07 | ED Chest Pain ---
General Stated Complaint: RIGHT RIB PAIN Source: patient Exam Limitations: no limitations History of Present Illness Date Seen by Provider: Mar 25, 2022 Time Seen by Provider: 19:05 Initial Comments To ER with reports of right rib pain after a fall last week her tried to catch her and she is had subsequent right anterior lower rib pain since. She is not called primary care or taken anything for this. She rates pain 8 out of 10. Timing/Duration: constant Severity/Quality: moderate Radiation: no radiation Activities at Onset: none Prior CP/Workup: no prior chest pain ASA po PRINCIPAL TECHNICAL WRITER: No NTG SL PRINCIPAL TECHNICAL WRITER: No Associated Symptoms: denies symptoms Allergies and Home Medications Allergies Coded Allergies: No Known Drug Allergies (Unverified , 02/26/13) Patient Home Medication List Home Medication List Reviewed: Yes Hydrocodone/Acetaminophen (Hydrocodone-Acetamin 5-325 mg) 5 Mg-325 Mg Tablet, 1 TAB PO Q6H PRN for PAIN-SEVERE (8-10) Prescribed by: VIPIN NASH on 02/13/22 1632 Vit No.124/Iron/FA ( Vitamin Tablet) 1 Each Tablet, 1 EACH PO DAILY, (Reported) Entered as Reported by: NILSON LYON on 10/21/21 2307 Promethazine HCl (Promethazine HCl) 50 Mg Tablet, 25 MG PO q6 PRN for NAUSEA/VOMITING, (Reported) Entered as Reported by: IVAN FELIZ on 11/27/21 1549 Review of Systems Review of Systems Constitutional: see HPI EENTM: No Symptoms Reported Respiratory: No Symptoms Reported Cardiovascular: No Symptoms Reported Gastrointestinal: No Symptoms Reported Genitourinary: No Symptoms Reported Musculoskeletal: no symptoms reported Skin: no symptoms reported Psychiatric/Neurological: No Symptoms Reported Endocrine: No Symptoms Reported Hematologic/Lymphatic: No Symptoms Reported Past Hiekgcq-Thvwmq-Nsaeeu Hx Immunizations Up To Date Tetanus Booster (TDap): More than 5yrs First/Initial COVID19 Vaccinat: 09/13 Second COVID19 Vaccination Dominic: 09/13 Third COVID19 Vaccination Date: 09/13 Seasonal Allergies Seasonal Allergies: No Past Medical History Surgery/Hospitalization HX: cholecystectomy, anxiety Surgeries: Yes Gallbladder Respiratory: No Cardiac: No Neurological: No Reproductive Disorders: No Female Reproductive Disorders: Ovarian Cyst Sexually Transmitted Disease: No HIV/AIDS: No Genitourinary: No Bladder Infection Gastrointestinal: Yes Gastroesophageal Reflux Musculoskeletal: No Endocrine: No HEENT: No Cancer: No Psychosocial: Yes Anxiety Integumentary: No Blood Disorders: No Adverse Reaction/Blood Tranf: No Family Medical History No Pertinent Family Hx Physical Exam Vital Signs Vital Signs - First Documented 03/25/22 18:58 Temp 36.6 Pulse 69 Resp 15 B/P (MAP) 135/90 (105) O2 Delivery Room Air Capillary Refill : Height, Weight, BMI Height: '" Weight: 97lbs. oz. 43.586297jn; 11.00 BMI Method:Stated General Appearance: No Apparent Distress, WD/WN Neck: Full Range of Motion, Normal Inspection Respiratory: No Accessory Muscle Use, No Respiratory Distress Cardiovascular: Regular Rate, Rhythm, Normal Peripheral Pulses Extremity: Normal Capillary Refill, Normal Inspection Neurologic/Psychiatric: Alert, Oriented x3 Skin: Normal Color, Warm/Dry Progress/Results/Core Measures Results/Orders My Orders Orders - ARSENIO TORRES APRN Ribs, Right 2-3 Views (03/25/22 19:03) Vital Signs/I&O 03/25/22 18:58 Temp 36.6 Pulse 69 Resp 15 B/P (MAP) 135/90 (105) O2 Delivery Room Air Departure Impression Primary Impression: Fracture of rib Disposition: 01 HOME, SELF-CARE Condition: Stable Departure-Patient Inst. Decision time for Depature: 19:06 Referrals: NO,LOCAL PHYSICIAN (PCP/Family) Primary Care Physician Patient Instructions: Rib Fracture or Bruised Rib ED Add. Discharge Instructions: 1. Tylenol and ibuprofen for pain. Return to ER for any concerns. ARSENIO TORRES APRN Mar 25, 2022 19:07
--- NOTE | 2022-03-25 19:35 | Diagnostic Imaging Report ---
CLINICAL INDICATIONS: Patient with right rib pain status post fall. EXAM: X-ray of the right ribs, 2 views. COMPARISON: None. FINDINGS AND IMPRESSION: Questionable fracture involving the anterior aspect of the right T8 rib. Correlation for pain in this region would help better evaluate. There is no other rib fracture seen. Remainder of this exam shows no other significant abnormality. Dictated by: Dictated on workstation # [id number]
[2022-03-25 19:39] VITALS: BP 135/68
== END 2022-03-25 19:39 | disposition home or self-care (01) ==
LOC: EDUNIT# 18:28 → ER 18:31
DX: S22.31XA Fracture of one rib, right side, initial encounter for closed fracture (principal); W19.XXXA Unspecified fall, initial encounter
CPT/HCPCS: 71100

== ENCOUNTER 2022-03-31 20:38 | Emergency (ER) | payer MEDICAID ==
[~2022-03-31] VITALS: Ht 165 cm; Wt 70.0 kg
[2022-03-31 20:46] VITALS: BP 128/108
--- NOTE | 2022-03-31 21:17 | ED Cough/URI ---
General Chief Complaint: COVID19 Suspect/Confirmed Stated Complaint: FEVER, HEADACHE Nursing Triage Note: c/o covid exposure, reports negative test 03/28/22. fever/body ache today. wants covid test. Source: patient Exam Limitations: no limitations History of Present Illness Date Seen by Provider: Mar 31, 2022 Time Seen by Provider: 20:41 Initial Comments 31yoF with no pertinent PMH coming in due to one days of fever and body aches. Was around someone that was COVID-positive and with the test. Tested negative last week, but had a fever for the first time today. Is otherwise denying any chest pain, shortness of breath, cough, nausea, vomiting, diarrhea, weakness, numbness, rash, or any other concerns Allergies and Home Medications Allergies Coded Allergies: No Known Drug Allergies (Unverified , 02/26/13) Patient Home Medication List Home Medication List Reviewed: Yes Discontinued Medications Hydrocodone/Acetaminophen (Hydrocodone-Acetamin 5-325 mg) 5 Mg-325 Mg Tablet, 1 TAB PO Q6H PRN for PAIN-SEVERE (8-10) Discontinued Reason: No Longer Taking Prescribed by: VIPIN NASH on 02/13/22 1632 Last Action: Discontinued Vit No.124/Iron/FA ( Vitamin Tablet) 1 Each Tablet, 1 EACH PO DAILY, (Reported) Discontinued Reason: No Longer Taking Entered as Reported by: NILSON LYON on 10/21/21 2307 Last Action: Discontinued Promethazine HCl (Promethazine HCl) 50 Mg Tablet, 25 MG PO q6 PRN for NAUSEA/VOMITING, (Reported) Discontinued Reason: No Longer Taking Entered as Reported by: IVAN FELIZ on 11/27/21 1549 Last Action: Discontinued Review of Systems Review of Systems Constitutional: fever, malaise EENTM: No blurred vision Respiratory: No cough Cardiovascular: No chest pain Gastrointestinal: No abdominal pain Genitourinary: no symptoms reported Musculoskeletal: no symptoms reported Skin: no symptoms reported Psychiatric/Neurological: No Symptoms Reported Hematologic/Lymphatic: No Symptoms Reported Immunological/Allergic: no symptoms reported All Other Systems Reviewed Negative Unless Noted: Yes Past Bhckzyg-Ciqgsx-Qosjaj Hx Patient Social History Tobacco Use?: Yes Substance use?: No Alcohol Use?: No Pt feels they are or have been: No Immunizations Up To Date Tetanus Booster (TDap): More than 5yrs First/Initial COVID19 Vaccinat: 09/13 Second COVID19 Vaccination Dominic: 09/13 Third COVID19 Vaccination Date: 09/13 Seasonal Allergies Seasonal Allergies: No Past Medical History Surgery/Hospitalization HX: cholecystectomy, anxiety, Surgeries: Yes Gallbladder Respiratory: No Cardiac: No Neurological: No Reproductive Disorders: No Female Reproductive Disorders: Ovarian Cyst Sexually Transmitted Disease: No HIV/AIDS: No Genitourinary: No Bladder Infection Gastrointestinal: Yes Gastroesophageal Reflux Musculoskeletal: No Endocrine: No HEENT: No Cancer: No Psychosocial: Yes Anxiety Integumentary: No Blood Disorders: No Adverse Reaction/Blood Tranf: No Family Medical History No Pertinent Family Hx Physical Exam Vital Signs - First Documented 03/31/22 20:46 Temp 36.8 Pulse 102 Resp 16 B/P (MAP) 128/108 (115) Pulse Ox 96 O2 Delivery Room Air Capillary Refill : Less Than 3 Seconds Height: '" Weight: 97lbs. oz. 43.824663al; 25.00 BMI Method:Stated General Appearance: WD/WN, no apparent distress Eyes: Bilateral Eye Normal Inspection HEENT: PERRL/EOMI, normal ENT inspection, pharynx normal Neck: non-tender, full range of motion, supple, normal inspection Respiratory: chest non-tender, lungs clear, normal breath sounds, no respiratory distress, no accessory muscle use Cardiovascular: regular rate, rhythm, no edema, no murmur Gastrointestinal: normal bowel sounds, non tender, soft; No distended, No guarding, No rebound Extremities: normal range of motion, non-tender, normal inspection, no pedal edema, no calf tenderness, normal capillary refill Neurologic/Psychiatric: no motor/sensory deficits, alert, normal mood/affect Skin: normal color, warm/dry Lymphatic: no adenopathy Progress/Results/Core Measures Suspected Sepsis SIRS Temperature: Pulse: 102 Respiratory Rate: 16 Blood Pressure 128 /108 Mean: 115 Results/Orders My Orders Orders - YOLY ALLEN MD Influenza A And B By Pcr (03/31/22 20:58) Covid 19 Inhouse Test (03/31/22 20:58) Vital Signs/I&O 03/31/22 20:46 Temp 36.8 Pulse 102 Resp 16 B/P (MAP) 128/108 (115) Pulse Ox 96 O2 Delivery Room Air Capillary Refill : Less Than 3 Seconds Blood Pressure Mean: 115 Progress Note : Progress Note 31-year-old female with above history coming in due to being exposed to someone with COVID and having a fever. ABCs were intact and vitals were stable on presentation including she is afebrile. She is very well-appearing, I believe stable for discharge. We will send a test and I will call her with the results. Departure Impression Primary Impression: Person under investigation for COVID-19 Disposition: 01 HOME, SELF-CARE Condition: Stable Departure-Patient Inst. Decision time for Depature: 21:16 Referrals: NO,LOCAL PHYSICIAN (PCP/Family) Primary Care Physician Patient Instructions: COVID-19 ED Add. Discharge Instructions: We will call you with the COVID result. Do not go to work for 5 days after the start of your symptoms, after that wear a mask for 5 days. Take ibuprofen or Tylenol as needed for fever or body aches. If you begin feeling severely short of breath or having severe chest discomfort then come back to the ER, otherwise you can follow-up with your regular doctor. Work/School Note: Work Release Form Date Seen in the Emergency Department: Mar 31, 2022 Return to Work: Apr 05, 2022 Restrictions: Return-No Fever (24hrs), Return-No Vomiting(24hrs) YOLY ALLEN MD Mar 31, 2022 21:17
== END 2022-03-31 21:29 | disposition home or self-care (01) ==
LOC: EDUNIT# 20:38 → ER 20:39
DX: R50.9 Fever, unspecified (principal); R52 Pain, unspecified; Z20.822 Contact with and (suspected) exposure to COVID-19
CPT/HCPCS: 87636; 99283

== ENCOUNTER 2022-05-07 18:05 | Emergency (ER) | payer MEDICAID ==
--- NOTE | 2022-05-07 18:17 | ED General ---
General Chief Complaint: Cardiac/General Problems Stated Complaint: HIGH BP,DIZZINESS History of Present Illness Date Seen by Provider: May 07, 2022 Time Seen by Provider: 18:16 Initial Comments 31-year-old female with PMH of HTN is here with complaints of elevated blood pressure today associated with dizziness. Patient has a 4-month-old baby. Patient has eaten lunch. Prior to coming, and has taken labetalol last night and today morning for elevated blood pressure. At home her systolic BP was reading in the 160s. Denies chest pain, palpitations, abdominal pain, diaphoresis, headache, neck pain, nausea and vomiting. Patient started taking labetalol during and she was diagnosed with gestational hypertension. Her LOCOMOTIVE OBSERVER recommended that she continue it after delivery. Patient only drinks 1 glass of water per day. Patient is not breast-feeding. Allergies and Home Medications Allergies Coded Allergies: No Known Drug Allergies (Unverified , 02/26/13) Patient Home Medication List Home Medication List Reviewed: Yes Review of Systems Review of Systems Constitutional: no symptoms reported EENTM: no symptoms reported Respiratory: no symptoms reported Cardiovascular: other (high BP and dizziness) Gastrointestinal: no symptoms reported Genitourinary: no symptoms reported Musculoskeletal: no symptoms reported Skin: no symptoms reported Psychiatric/Neurological: No Symptoms Reported Hematologic/Lymphatic: No Symptoms Reported Immunological/Allergic: no symptoms reported Past Teufjqt-Drerzp-Cxzavr Hx Immunizations Up To Date Tetanus Booster (TDap): More than 5yrs First/Initial COVID19 Vaccinat: 09/13 Second COVID19 Vaccination Dominic: 09/13 Third COVID19 Vaccination Date: 09/13 Seasonal Allergies Seasonal Allergies: No Past Medical History Surgery/Hospitalization HX: cholecystectomy, anxiety, Surgeries: Yes Gallbladder Respiratory: No Cardiac: No Neurological: No Reproductive Disorders: No Female Reproductive Disorders: Ovarian Cyst Sexually Transmitted Disease: No HIV/AIDS: No Genitourinary: No Bladder Infection Gastrointestinal: Yes Gastroesophageal Reflux Musculoskeletal: No Endocrine: No HEENT: No Cancer: No Psychosocial: Yes Anxiety Integumentary: No Blood Disorders: No Adverse Reaction/Blood Tranf: No Family Medical History No Pertinent Family Hx Physical Exam Vital Signs Vital Signs - First Documented 05/07/22 18:12 Temp 36.5 Pulse 94 Resp 16 B/P (MAP) 156/86 (109) Pulse Ox 98 O2 Delivery Room Air Capillary Refill : Height, Weight, BMI Height: '" Weight: 97lbs. oz. 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 ELEVATED BP: - BP is normal in ER : 122/78 - No dizziness in ER - EKG normal - Adequate hydration advised. - Advised to keep BP and diet log - Follow up with PCP in 3 to 5 days -The patient was seen in the ED, and treated appropriately to presentation at a specific point in time. Patient is informed that there is a possibility that disease and illness can evolve and change in acuity rapidly or slowly after patient is discharged from the ER. Precautionary advice given to the patient for immediate return to ER if symptoms worsen or do not resolve, and to seek emergency care sooner rather than later. Pt also advised on the importance of PCP follow up and compliance with management and follow up plan with PCP and/or specialist, as this is part of the management plan. Pt verbally expressed understanding. Departure Impression Primary Impression: Transient elevated blood pressure Disposition: HOME, SELF-CARE Condition: Stable Departure-Patient Inst. Referrals: NO,LOCAL PHYSICIAN (PCP/Family) Primary Care Physician Patient Instructions: High Blood Pressure in Adults, High Blood Pressure (DC), High Blood Pressure and , Heart Healthy Diet, Lowering Your Risk of High Blood Pressure Add. Discharge Instructions: - Adequate hydration advised. - Advised to keep BP and diet log - Follow up with PCP in 3 to 5 days - Return to ER if symptoms worsen All discharge instructions reviewed with patient and/or family. Voiced unde rstanding. OTILIO OCAMPO MD May 07, 2022 18:17
[2022-05-07 19:20] VITALS: BP 128/82
== END 2022-05-07 19:21 | disposition home or self-care (01) ==
LOC: EDUNIT# 18:05 → ER FS 18:07
DX: R03.0 Elevated blood-pressure reading, without diagnosis of hypertension (principal); Z28.310 Unvaccinated for COVID-19
CPT/HCPCS: 93005

== ENCOUNTER 2022-05-09 13:58 | Emergency (ER) | payer MEDICAID ==
[2022-05-09] MEDS ORDERED: NS IV 1000 ML 1,000 ML IV STA (14:13)
[2022-05-09] MEDS ORDERED: ONDANSETRON 4 MG/2 ML (SDV) Z0FRAN IVP STA (14:13)
[2022-05-09 14:28] LABS: BASOPHILS # (AUTO) 0.1 10^3/uL (0.0-0.1); BASOPHILS % (AUTO) 1 % (0-10); EOSINOPHILS # (AUTO) 0.3 10^3/uL (0.0-0.3); EOSINOPHILS % (AUTO) 3 % (0-10); HEMATOCRIT 45 % (35-52); HEMOGLOBIN 14.7 g/dL (11.5-16.0); LYMPHOCYTES # (AUTO) 3.1 10^3/uL (1.0-4.0); LYMPHOCYTES % (AUTO) 28 % (12-44); MEAN CORPUSCULAR HEMOGLOBIN 29 pg (25-34); MEAN CORPUSCULAR HGB CONC 33 g/dL (32-36); MEAN CORPUSCULAR VOLUME 87 fL (80-99); MEAN PLATELET VOLUME 10.8 fL (9.0-12.2); MONOCYTES # (AUTO) 0.8 10^3/uL (0.0-1.0); MONOCYTES % (AUTO) 7 % (0-12); NEUTROPHILS # (AUTO) 6.7 10^3/uL (1.8-7.8); NEUTROPHILS % (AUTO) 61 % (42-75); PLATELET COUNT 385 10^3/uL (130-400); WHITE BLOOD COUNT 10.9 10^3/uL (4.3-11.0)
--- NOTE | 2022-05-09 14:34 | ED General ---
General Chief Complaint: General Problems/Pain Stated Complaint: ELEV BP; DIZZINESS/SHAKY Nursing Triage Note: PT REPORTS CONTINUED DIZZINESS, NAUSEA, AND A HEADACHE SINCE MONDAY. Source of Information: Patient, Old Records, Spouse (sumi) History of Present Illness Date Seen by Provider: May 09, 2022 Time Seen by Provider: 14:02 Initial Comments 31-year-old female presenting with complaints of continued dizziness, nausea, headache since this weekend. She was seen on Monday for the same symptoms and concern for her blood pressure however her blood pressure normalized without any intervention. Today she had tried going to work and ended up having to leave because of getting sick. She has not been able to get in with her primary care provider until later in the week. She has had no close ill contacts. She denies having vomiting, abdominal pain, diarrhea, constipation, pain with urination, chills, chest pain, sore throat. She feels like she is getting d rainage down the back of her throat. She does have a mild cough. Her dizziness is worse when she stands up. Timing/Duration: 4-5 Days Severity: Severe Modifying Factors: worse with Movement Associated Systoms: No Chest Pain; Cough (Mild dry); No Diaphoresis; Fever/Chills (Subjective fever and chills), Headaches, Loss of Appetite, Malaise, Nausea/Vomiting (Nausea but no vomiting); No Rash, No Seizure, No Shortness of Air, No Syncope, No Weakness Allergies and Home Medications Allergies Coded Allergies: No Known Drug Allergies (Unverified , 02/26/13) Patient Home Medication List Home Medication List Reviewed: Yes Meclizine HCl (Meclizine HCl) 25 Mg Tablet, 25 MG PO TID PRN for DIZZINESS Prescribed by: VIPIN NASH on 05/09/22 1530 Review of Systems Review of Systems Constitutional: see HPI EENTM: nose congestion; No ear discharge, No blurred vision, No vision loss, No throat pain, No throat swelling Respiratory: see HPI Cardiovascular: see HPI Gastrointestinal: see HPI; No abdominal pain, No diarrhea; nausea; No vomiting Genitourinary: No dysuria, No frequency Musculoskeletal: muscle pain (Generalized body aches) Skin: No rash Psychiatric/Neurological: Headache Past Hgptlps-Idibmq-Rxurtq Hx Patient Social History Tobacco Use?: Yes Tobacco type used: Cigarettes Smoking Status: Current Everyday Smoker Use of E-Cig and/or Vaping dev: No Substance use?: No Alcohol Use?: No Pt feels they are or have been: No Immunizations Up To Date Tetanus Booster (TDap): More than 5yrs First/Initial COVID19 Vaccinat: 09/13 Second COVID19 Vaccination Dominic: 09/13 Third COVID19 Vaccination Date: 09/13 Seasonal Allergies Seasonal Allergies: No Past Medical History Surgery/Hospitalization HX: cholecystectomy, anxiety, ; HTN Surgeries: Yes Gallbladder Respiratory: No Cardiac: No Neurological: No Reproductive Disorders: No Female Reproductive Disorders: Ovarian Cyst Sexually Transmitted Disease: No HIV/AIDS: No Genitourinary: No Bladder Infection Gastrointestinal: Yes Gastroesophageal Reflux Musculoskeletal: No Endocrine: No HEENT: No Cancer: No Psychosocial: Yes Anxiety Integumentary: No Blood Disorders: No Adverse Reaction/Blood Tranf: No Family Medical History No Pertinent Family Hx Physical Exam Vital Signs Vital Signs - First Documented 05/09/22 14:09 Temp 36.3 Pulse 113 Resp 16 B/P (MAP) 135/104 (114) Pulse Ox 98 O2 Delivery Room Air Capillary Refill : Less Than 3 Seconds Height, Weight, BMI Height: '" Weight: 97lbs. oz. 43.781258dl; 25.00 BMI Method:Stated General Appearance: Anxious, Thin HEENT: PERRL/EOMI, Pharynx Normal, Moist Mucous Membranes; No Tonsillar Exudate, No Tonsillar Enlargement; Other (She has small amount of effusion behind bilateral TMs. 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 Skin: Normal Color, Warm/Dry; No Rash Progress/Results/Core Measures Suspected Sepsis SIRS Temperature: Pulse: 113 Respiratory Rate: 16 Laboratory Tests 05/09/22 14:20: White Blood Count 10.9 Blood Pressure 135 /104 Mean: 114 Laboratory Tests 05/09/22 14:20: Creatinine 0.82, Platelet Count 385, Total Bilirubin 0.2 Results/Orders Lab Results Laboratory Tests Test 05/09/22 14:17 05/09/22 14:20 Range/Units Urine Color YELLOW Urine Clarity SL CLOUDY Urine pH 5.5 5-9 Urine Specific [place] 1.020 1.016-1.022 Urine Protein NEGATIVE NEGATIVE Urine Glucose (UA) NEGATIVE NEGATIVE Urine Ketones NEGATIVE NEGATIVE Urine Nitrite NEGATIVE NEGATIVE Urine Bilirubin NEGATIVE NEGATIVE Urine Urobilinogen 0.2 < = 1.0 MG/DL Urine Leukocyte Esterase NEGATIVE NEGATIVE Urine RBC (Auto) 1+ H NEGATIVE Urine RBC 2-5 H /HPF Urine WBC 0-2 /HPF Urine Squamous Epithelial Cells 25-50 H /HPF Urine Crystals NONE /LPF Urine Bacteria MODERATE H /HPF Urine Casts NONE /LPF Urine Mucus NEGATIVE /LPF Urine Culture Indicated NO White Blood Count 10.9 4.3-11.0 10^3/uL Red Blood Count 5.15 H 3.80-5.11 10^6/uL Hemoglobin 14.7 11.5-16.0 g/dL Hematocrit 45 35-52 % Mean Corpuscular Volume 87 80-99 fL Mean Corpuscular Hemoglobin 29 25-34 pg Mean Corpuscular Hemoglobin Concent 33 32-36 g/dL Red Cell Distribution Width 14.8 H 10.0-14.5 % Platelet Count 385 130-400 10^3/uL Mean Platelet Volume 10.8 9.0-12.2 fL Immature Granulocyte % (Auto) 0 % Neutrophils (%) (Auto) 61 42-75 % Lymphocytes (%) (Auto) 28 12-44 % Monocytes (%) (Auto) 7 0-12 % Eosinophils (%) (Auto) 3 0-10 % Basophils (%) (Auto) 1 0-10 % Neutrophils # (Auto) 6.7 1.8-7.8 10^3/uL Lymphocytes # (Auto) 3.1 1.0-4.0 10^3/uL Monocytes # (Auto) 0.8 0.0-1.0 10^3/uL Eosinophils # (Auto) 0.3 0.0-0.3 10^3/uL Basophils # (Auto) 0.1 0.0-0.1 10^3/uL Immature Granulocyte # (Auto) 0.0 0.0-0.1 10^3/uL Sodium Level 139 135-145 MMOL/L Potassium Level 3.9 3.6-5.0 MMOL/L Chloride Level 104 98-107 MMOL/L Carbon Dioxide Level 20 L 21-32 MMOL/L Anion Gap 15 H 5-14 MMOL/L Blood Urea Nitrogen 10 7-18 MG/DL Creatinine 0.82 0.60-1.30 MG/DL Estimat Glomerular Filtration Rate 99 BUN/Creatinine Ratio 12 Glucose Level 89 70-105 MG/DL Calcium Level 9.4 8.5-10.1 MG/DL Corrected Calcium 9.0 8.5-10.1 MG/DL Magnesium Level 2.1 1.6-2.4 MG/DL Total Bilirubin 0.2 0.1-1.0 MG/DL Aspartate Amino Transf (AST/SGOT) 22 5-34 U/L Alanine Aminotransferase (ALT/SGPT) 29 0-55 U/L Alkaline Phosphatase 144 H 40-136 U/L Total Protein 7.8 6.4-8.2 GM/DL Albumin 4.5 3.2-4.5 GM/DL Lipase 20 8-78 U/L Influenza Type A (RT-PCR) Not Detected Not Detecte Influenza Type B (RT-PCR) Not Detected Not Detecte SARS-CoV-2 RNA (RT-PCR) Not Detected Not Detecte My Orders Orders - VIPIN NASH MD Cbc With Automated Diff (05/09/22 14:13) Magnesium (05/09/22 14:13) Chest 1 View Ap/Pa Only (05/09/22 14:13) Comprehensive Metabolic Panel (05/09/22 14:13) Ed Iv/Invasive Line Start (05/09/22 14:13) Lipase (05/09/22 14:13) Ua Culture If Indicated (05/09/22 14:13) Urine Bedside (05/09/22 14:13) Ct Head Wo (05/09/22 14:13) Covid 19 Inhouse Test (05/09/22 14:13) Influenza A And B By Pcr (05/09/22 14:13) Ns Iv 1000 Ml (Sodium Chloride 0.9%) (05/09/22 14:13) Ondansetron Injection (Zofran Injectio (05/09/22 14:13) Vital Signs/I&O 05/09/22 05/09/22 14:09 15:42 Temp 36.3 36.3 Pulse 113 84 Resp 16 16 B/P (MAP) 135/104 (114) 120/82 Pulse Ox 98 99 O2 Delivery Room Air Room Air Capillary Refill : Less Than 3 Seconds Blood Pressure Mean: 114 Progress Note #1: Progress Note Since this is her second visit for the same complaints will obtain wound as well as urinalysis looking for electrolyte imbalance, anemia, elevated white blood cell count for infection, UTI, renal failure, liver failure. CT scan of her head since she was complaining of continued dizziness and did have some fluid behind her eardrums. This will evaluate for sinusitis versus mass versus stroke. Chest x-ray since has a mild dry cough and was feeling dizzy lightheaded. Administer 1 L normal saline IV fluid bolus for hydration. Give Zofran 4 mg IV for nausea. Progress Note #2: Progress Note Labs are stable without acute significant abnormality to account for symptoms. No signs of UTI on her urinalysis. The CT scan of her head did not show any acute process to explain her symptoms. Her chest x-ray was clear without anything acute. On recheck of the patient's when reviewing results with her she reports feeling better with treatment in the ED. She had improved blood pressure down to 113/96. Her heart rate was sinus rhythm in the 80s. She was still saturating 100% on room air. Reassured the patient and advised to keep pushing fluids for hydration. Diagnostic Imaging Diagonstic Imaging: Xray Plain Films/CT/US/NM/MRI: chest Comments [facility] [place] NAME: HUSSEIN COBIAN [facility] REC#: [id number] PT STATUS: REG ER : 1990 PHYSICIAN: VIPIN NASH MD ADMIT DATE: 05/09/22/ER FS Signed Date of Exam:05/09/22 CHEST 1 VIEW AP/PA ONLY EXAMINATION: Chest, one view. HISTORY: Dizzy, shaking, cough. COMPARISON: None available. FINDINGS: Heart size and pulmonary vasculature are normal. The lungs are clear without consolidation, pleural effusion, or pneumothorax. The osseous structures are intact. IMPRESSION: 1. No acute radiographic abnormality in the chest. Dictated by: Dictated on workstation # [id number] Dict: 05/09/22 1513 Trans: 05/09/22 1514 [id number] Interpreted by: AHSAN ORDAZ DO Electronically signed by: AHSAN ORDAZ DO 05/09/221513 Reviewed: Reviewed by Me Diagonstic Imaging: CT Plain Films/CT/US/NM/MRI: head Comments [facility] [place] NAME: HUSSEIN COBIAN [facility] REC#: [id number] PT STATUS: DEP ER : 1990 PHYSICIAN: VIPIN NASH MD ADMIT DATE: 05/09/22/ER FS Signed Date of Exam:05/09/22 CT HEAD WO PROCEDURE: CT head without contrast. TECHNIQUE: Multiple contiguous axial images were obtained through the brain without the use of intravenous contrast. Auto Exposure Controls were utilized during the CT exam to meet ALARA standards for radiation dose reduction. INDICATION: Dizziness, lightheadedness, and headache. FINDINGS: The ventricles and sulci are within normal limits. There is no hydrocephalus or cerebral edema. There is no midline shift or mass effect. There is no intracranial mass, hemorrhage, or extra-axial fluid collection. The visualized paranasal sinuses and mastoid air cells are clear. There are no regional areas of decreased attenuation appreciated to suggest an acute CVA. IMPRESSION: No acute intracranial abnormality. Dictated by: Dictated on workstation # [id number] Dict: 05/09/22 1522 Trans: 05/09/22 1543 [id number] Interpreted by: YAHAIRA PEREZ MD Electronically signed by: YAHAIRA PEREZ MD 05/09/22 1543 Reviewed: Reviewed by Me Departure Impression Primary Impression: Dizziness Additional Impression: Viral syndrome Disposition: 01 HOME, SELF-CARE Condition: Stable Departure-Patient Inst. Decision time for Depature: 15:30 Referrals: PURA COLON DO (PCP) Primary Care Physician Patient Instructions: Dizziness, Adult ED, Viral Syndrome (DC) Add. Discharge Instructions: Stay well hydrated and drink plenty of water and electrolyte drinks. Check back with primary care provider for continued symptoms. Try Meclizine (Anti-vert) to try and help with dizziness. All discharge instructions reviewed with patient and/or family. Voiced understanding. Scripts Meclizine HCl (Meclizine HCl) 25 Mg Tablet 25 MG PO TID PRN for DIZZINESS for 10 Days, #30 TAB 0 Refills Prov: VIPIN NASH MD 05/09/22 Work/School Note: Work Release Form Date Seen in the Emergency Department: May 09, 2022 Return to Work: May 12, 2022 Restrictions: No Restrictions VIPIN NASH MD May 09, 2022 14:34
[2022-05-09 14:44] LABS: BILIRUBIN,URINE NEGATIVE (NEGATIVE); CLARITY,URINE SL CLOUDY; COLOR,URINE YELLOW; GLUCOSE, URINE (UA) NEGATIVE (NEGATIVE); KETONES,URINE NEGATIVE (NEGATIVE); LEUKOCYTE ESTERASE ,URINE NEGATIVE (NEGATIVE); NITRITE,URINE NEGATIVE (NEGATIVE); PH,URINE 5.5 (5-9); PROTEIN,URINE NEGATIVE (NEGATIVE)
[2022-05-09 14:45] LABS: WBC,URINE 0-2 /HPF
[2022-05-09 14:46] LABS: BACTERIA,URINE MODERATE /HPF; SQUAMOUS EPITHELIAL CELL,UR 25-50 /HPF
[2022-05-09 14:47] LABS: CALCIUM 9.4 MG/DL (8.5-10.1); CREATININE SERUM 0.82 MG/DL (0.60-1.30); POTASSIUM 3.9 MMOL/L (3.6-5.0)
[2022-05-09 14:48] LABS: ALBUMIN 4.5 GM/DL (3.2-4.5); BILIRUBIN,TOTAL 0.2 MG/DL (0.1-1.0); MAGNESIUM 2.1 MG/DL (1.6-2.4); TOTAL PROTEIN 7.8 GM/DL (6.4-8.2)
--- NOTE | 2022-05-09 15:15 | Diagnostic Imaging Report ---
EXAMINATION: Chest, one view. HISTORY: Dizzy, shaking, cough. COMPARISON: None available. FINDINGS: Heart size and pulmonary vasculature are normal. The lungs are clear without consolidation, pleural effusion, or pneumothorax. The osseous structures are intact. IMPRESSION: 1. No acute radiographic abnormality in the chest. Dictated by: Dictated on workstation # [id number]
--- NOTE | 2022-05-09 15:25 | Diagnostic Imaging Report ---
PROCEDURE: CT head without contrast. TECHNIQUE: Multiple contiguous axial images were obtained through the brain without the use of intravenous contrast. Auto Exposure Controls were utilized during the CT exam to meet ALARA standards for radiation dose reduction. INDICATION: Dizziness, lightheadedness, and headache. FINDINGS: The ventricles and sulci are within normal limits. There is no hydrocephalus or cerebral edema. There is no midline shift or mass effect. There is no intracranial mass, hemorrhage, or extra-axial fluid collection. The visualized paranasal sinuses and mastoid air cells are clear. There are no regional areas of decreased attenuation appreciated to suggest an acute CVA. IMPRESSION: No acute intracranial abnormality. Dictated by: Dictated on workstation # [id number]
[2022-05-09] MEDS ORDERED: MECL-149 PO (15:30)
[2022-05-09 15:42] VITALS: BP 120/82
== END 2022-05-09 15:43 | disposition home or self-care (01) ==
LOC: EDUNIT# 13:58 → ER FS 14:01
DX: B34.9 Viral infection, unspecified (principal); R42 Dizziness and giddiness; F17.210 Nicotine dependence, cigarettes, uncomplicated; Z20.822 Contact with and (suspected) exposure to COVID-19
CPT/HCPCS: 36415; 70450; 71045; 80053; 81000; 83690; 83735; 84703; 85025; 87636

== ENCOUNTER 2022-05-11 19:25 | Emergency (ER) | payer MEDICAID ==
[~2022-05-11] VITALS: Ht 165 cm; Wt 68.0 kg
[~2022-05-11 19:25] MED LIST changes: +MECL-149 PO
--- NOTE | 2022-05-11 19:31 | ED General ---
General Chief Complaint: Dizziness/Syncope Stated Complaint: UNRESPONSIVE Source of Information: Patient Exam Limitations: No Limitations History of Present Illness Date Seen by Provider: May 11, 2022 Time Seen by Provider: 19:16 Initial Comments 31-year-old female presents emergency room today for possible syncopal episode. She was at [facility] where she reports she was shopping for closer her son. She reportedly was unresponsive and EMS was called. She states she remembers shopping for her son but does not remember passing out. She did not have any chest pain, shortness of breath prior to the event per her recall. She does say that she has felt a little lightheaded for the entirety of the week. She is eat ing and drinking well without any nausea vomiting chest pain, cough, abdominal pain, changes in bowel or bladder habits. She is 4 months did not have any complications from her . She has resumed normal menstrual cycle since that time and denies . She feels back to normal now with no reported pain. EMS reports her vital signs are stable on their arrival. She was responsive only to deep pain with full stimuli initially. They gave her 1 mg of Narcan after her blood sugar was normal and she did reportedly have some response to this. Allergies and Home Medications Allergies Coded Allergies: No Known Drug Allergies (Unverified , 02/26/13) Patient Home Medication List Home Medication List Reviewed: Yes Meclizine HCl (Meclizine HCl) 25 Mg Tablet, 25 MG PO TID PRN for DIZZINESS Prescribed by: VIPIN NASH on 05/09/22 1530 Review of Systems Review of Systems Constitutional: no symptoms reported EENTM: no symptoms reported Respiratory: no symptoms reported Cardiovascular: no symptoms reported Gastrointestinal: no symptoms reported Genitourinary: no symptoms reported Musculoskeletal: no symptoms reported Skin: no symptoms reported Psychiatric/Neurological: No Symptoms Reported Hematologic/Lymphatic: No Symptoms Reported Immunological/Allergic: no symptoms reported Past Atbfbap-Hakumx-Tufrht Hx Patient Social History Tobacco Use?: Yes Tobacco type used: Cigarettes Use of E-Cig and/or Vaping dev: No Substance use?: No Alcohol Use?: No Past Medical History Surgery/Hospitalization HX: C section x2, tonsils Family Medical History Reviewed Nursing Family Hx No Pertinent Family Hx Physical Exam Vital Signs Vital Signs - First Documented 05/11/22 19:25 Temp 36.5 Pulse 77 Resp 20 B/P (MAP) 147/85 (105) Capillary Refill : Height, Weight, BMI Height: '" Weight: lbs. oz. kg; BMI Method: General Appearance: No Apparent Distress, WD/WN HEENT: PERRL/EOMI, TMs Normal, Normal ENT Inspection, Pharynx Normal Neck: Full Range of Motion, Normal Inspection, Non Tender, Supple Respiratory: Chest Non Tender, Lungs Clear, Normal Breath Sounds, No Accessory Muscle Use, No Respiratory Distress Cardiovascular: Regular Rate, Rhythm, No Edema, No Gallop, No JVD, No Murmur, Normal Peripheral Pulses Gastrointestinal: Normal Bowel Sounds, No Organomegaly, No Pulsatile Mass, Non Tender, Soft Extremity: Normal Capillary Refill, Normal Inspection, Normal Range of Motion, Non Tender, No Calf Tenderness Neurologic/Psychiatric: Alert, Oriented x3, 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, Normal Mood/Affect, afternoon babysitter II-XII Norm as Tested Skin: Normal Color, Warm/Dry Lymphatic: No Adenopathy Progress/Results/Core Measures Suspected Sepsis SIRS Temperature: Pulse: Respiratory Rate: Laboratory Tests 05/11/22 19:18: White Blood Count 10.4 Blood Pressure / Mean: Laboratory Tests 05/11/22 19:18: Creatinine 0.81, Platelet Count 332, Total Bilirubin 0.2 Results/Orders Lab Results Laboratory Tests Test 05/11/22 19:18 Range/Units White Blood Count 10.4 4.3-11.0 10^3/uL Red Blood Count 4.71 3.80-5.11 10^6/uL Hemoglobin 13.4 11.5-16.0 g/dL Hematocrit 41 35-52 % Mean Corpuscular Volume 87 80-99 fL Mean Corpuscular Hemoglobin 29 25-34 pg Mean Corpuscular Hemoglobin Concent 33 32-36 g/dL Red Cell Distribution Width 14.7 H 10.0-14.5 % Platelet Count 332 130-400 10^3/uL Mean Platelet Volume 10.9 9.0-12.2 fL Immature Granulocyte % (Auto) 0 % Neutrophils (%) (Auto) 55 42-75 % Lymphocytes (%) (Auto) 35 12-44 % Monocytes (%) (Auto) 8 0-12 % Eosinophils (%) (Auto) 2 0-10 % Basophils (%) (Auto) 1 0-10 % Neutrophils # (Auto) 5.7 1.8-7.8 10^3/uL Lymphocytes # (Auto) 3.6 1.0-4.0 10^3/uL Monocytes # (Auto) 0.8 0.0-1.0 10^3/uL Eosinophils # (Auto) 0.2 0.0-0.3 10^3/uL Basophils # (Auto) 0.1 0.0-0.1 10^3/uL Immature Granulocyte # (Auto) 0.0 0.0-0.1 10^3/uL Sodium Level 139 135-145 MMOL/L Potassium Level 3.8 3.6-5.0 MMOL/L Chloride Level 105 98-107 MMOL/L Carbon Dioxide Level 22 21-32 MMOL/L Anion Gap 12 5-14 MMOL/L Blood Urea Nitrogen 11 7-18 MG/DL Creatinine 0.81 0.60-1.30 MG/DL Estimat Glomerular Filtration Rate 100 BUN/Creatinine Ratio 14 Glucose Level 84 70-105 MG/DL Calcium Level 9.1 8.5-10.1 MG/DL Corrected Calcium 8.9 8.5-10.1 MG/DL Total Bilirubin 0.2 0.1-1.0 MG/DL Aspartate Amino Transf (AST/SGOT) 22 5-34 U/L Alanine Aminotransferase (ALT/SGPT) 25 0-55 U/L Alkaline Phosphatase 126 40-136 U/L Total Protein 7.3 6.4-8.2 GM/DL Albumin 4.2 3.2-4.5 GM/DL Serum Test, Qualitative NEGATIVE NEGATIVE My Orders Orders - FERNANDOSAVANNAH Barnes DO Cbc With Automated Diff (05/11/22 19:27) Comprehensive Metabolic Panel (05/11/22 19:27) Ekg Tracing (05/11/22 19:27) Hcg,Qualitative Serum (05/11/22 19:27) Ct Head Wo (05/11/22 20:17) Vital Signs/I&O 05/11/22 05/11/22 19:25 20:13 Temp 36.5 Pulse 77 75 86 101 Resp 20 B/P (MAP) 147/85 (105) 132/79 (96) 146/90 (108) 151/91 (111) Capillary Refill : ECG EKG : Rhythm: Normal Sinus Intervals: Normal ECG Comparisson: No Previous ECG Available ECG Impression: Normal Comment normal axis. No ectopy. No STEMI Diagnostic Imaging Diagonstic Imaging: CT Plain Films/CT/US/NM/MRI: head Comments negative for acute findings Departure Communication (Admissions) Patient is hemodynamically stable. She is alert, oriented and asymptomatic at the time of her arrival here. Blood sugar was normal in route. EKG shows no evidence for dysrhythmia. She denies any drug use though she did have some reported response from EMS with Narcan. Ct brain negative for bleed/mass. Orthostatics negative. There is no evidence for emergent medical condition at this time. She is discharged home in stable condition with supportive care and close follow-up Impression Primary Impression: Syncope Qualified Codes: R55 - Syncope and collapse Disposition: HOME, SELF-CARE Condition: Stable Departure-Patient Inst. Referrals: PURA COLON DO Patient Instructions: Syncope (Fainting) (DC) Add. Discharge Instructions: Please increase your fluids at home, rest as needed. Your exam, lab work and vital signs are reassuring today. Unclear what happened exactly but does not appear to be an emergent medical condition at this time. I recommend you follow-up with your primary doctor in the next week or so for further evaluation and treatment recommendations. Return to the emergency department for any severe concerns All discharge instructions reviewed with patient and/or family. Voiced understanding. SAVANNAH KING DO May 11, 2022 19:31
[2022-05-11 19:42] LABS: BASOPHILS # (AUTO) 0.1 10^3/uL (0.0-0.1); BASOPHILS % (AUTO) 1 % (0-10); EOSINOPHILS # (AUTO) 0.2 10^3/uL (0.0-0.3); EOSINOPHILS % (AUTO) 2 % (0-10); HEMATOCRIT 41 % (35-52); HEMOGLOBIN 13.4 g/dL (11.5-16.0); LYMPHOCYTES # (AUTO) 3.6 10^3/uL (1.0-4.0); LYMPHOCYTES % (AUTO) 35 % (12-44); MEAN CORPUSCULAR HEMOGLOBIN 29 pg (25-34); MEAN CORPUSCULAR HGB CONC 33 g/dL (32-36); MEAN CORPUSCULAR VOLUME 87 fL (80-99); MEAN PLATELET VOLUME 10.9 fL (9.0-12.2); MONOCYTES # (AUTO) 0.8 10^3/uL (0.0-1.0); MONOCYTES % (AUTO) 8 % (0-12); NEUTROPHILS # (AUTO) 5.7 10^3/uL (1.8-7.8); NEUTROPHILS % (AUTO) 55 % (42-75); PLATELET COUNT 332 10^3/uL (130-400); WHITE BLOOD COUNT 10.4 10^3/uL (4.3-11.0)
[2022-05-11 19:57] LABS: POTASSIUM 3.8 MMOL/L (3.6-5.0)
[2022-05-11 19:58] LABS: ALBUMIN 4.2 GM/DL (3.2-4.5); BILIRUBIN,TOTAL 0.2 MG/DL (0.1-1.0); CALCIUM 9.1 MG/DL (8.5-10.1); CREATININE SERUM 0.81 MG/DL (0.60-1.30); TOTAL PROTEIN 7.3 GM/DL (6.4-8.2)
[2022-05-11 20:13] VITALS: BP_SYST 132; BP_SYST 146; BP_SYST 151; BP_DIAS 79; BP_DIAS 90; BP_DIAS 91
--- NOTE | 2022-05-11 20:39 | Diagnostic Imaging Report ---
EXAMINATION: CT head without contrast. TECHNIQUE: Multiple contiguous axial images were obtained through the brain without the use of intravenous contrast. All CT scans use one or more of the following dose optimizing techniques: automated exposure control, MA and/or KvP adjustment based on patient size and exam type or iterative reconstruction. HISTORY: Dizziness. COMPARISON: 05/09/2022. FINDINGS: The welch-white matter differentiation is normal. No mass effect or midline shift. The ventricles are normal in size and configuration. Basilar cisterns are patent. There is no intra-axial or extra-axial fluid collection. There is no intracranial hemorrhage. The orbits are normal. Paranasal sinuses are normal. Mastoid air cells are clear. No soft tissue abnormality is seen. No osseus lesions or fractures are seen. IMPRESSION: No acute intracranial abnormality. Dictated by: Dictated on workstation # [id number]
[2022-05-11 20:55] VITALS: BP 124/61
== END 2022-05-11 20:55 | disposition home or self-care (01) ==
LOC: EDUNIT# 19:25 → ER FS 19:28
DX: R55 Syncope and collapse (principal); F17.210 Nicotine dependence, cigarettes, uncomplicated
CPT/HCPCS: 36415; 70450; 80053; 84703; 85025; 93005

== ENCOUNTER 2022-07-16 20:15 | Emergency (ER) | payer MEDICAID ==
[~2022-07-16] VITALS: Ht 165.1 cm; Wt 72.9 kg
[2022-07-16 20:18] VITALS: BP 124/84
[2022-07-16] MEDS ORDERED: GUAI1TBM19 PO (20:44)
--- NOTE | 2022-07-16 20:44 | ED Cough/URI ---
General Chief Complaint: Cough/Cold/Flu Symptoms Stated Complaint: FEVER,HEADACHE Source: patient Exam Limitations: no limitations History of Present Illness Date Seen by Provider: Jul 16, 2022 Time Seen by Provider: 20:15 Initial Comments Patient is a 32-year-old female presents with flulike illness. Patient presents with body aches chills, sweats, sore throat and fever for the past 2 days. Patient has not taken ibuprofen or Tylenol in the past 12 hours. She was seen twice at [facility] and tested negative for influenza, COVID and strep. No dysphonia drooling, hoarseness, shortness of breath. No dizziness, neck stiffness, headache and rash. No abdominal pain nausea vomiting. No other acute symptoms or complaints. Timing/Duration: just prior to arrival Severity/Quality: other Prior Episodes/Possible Cause: other Modifying Factors: Improves With Other Associated Symptoms: other Allergies and Home Medications Allergies Coded Allergies: No Known Drug Allergies (Unverified , 02/26/13) Patient Home Medication List Home Medication List Reviewed: Yes Meclizine HCl (Meclizine HCl) 25 Mg Tablet, 25 MG PO TID PRN for DIZZINESS Prescribed by: VIPIN NASH on 05/09/22 1530 Review of Systems Review of Systems Constitutional: see HPI EENTM: see HPI Respiratory: see HPI Cardiovascular: see HPI Gastrointestinal: see HPI Musculoskeletal: see HPI Skin: see HPI Past Tdifanz-Nhnrjk-Xyvryj Hx Patient Social History Tobacco Use?: No Immunizations Up To Date Tetanus Booster (TDap): More than 5yrs First/Initial COVID19 Vaccinat: 09/13 Second COVID19 Vaccination Dominic: 09/13 Third COVID19 Vaccination Date: 09/13 Seasonal Allergies Seasonal Allergies: No Past Medical History Surgery/Hospitalization HX: C section x2, tonsils Surgeries: Yes Gallbladder Respiratory: No Cardiac: No Neurological: No Reproductive Disorders: No Female Reproductive Disorders: Ovarian Cyst Sexually Transmitted Disease: No HIV/AIDS: No Genitourinary: No Bladder Infection Gastrointestinal: Yes Gastroesophageal Reflux Musculoskeletal: No Endocrine: No HEENT: No Cancer: No Psychosocial: Yes Anxiety Integumentary: No Blood Disorders: No Adverse Reaction/Blood Tranf: No Family Medical History No Pertinent Family Hx Physical Exam Capillary Refill : Height: '" Weight: 97lbs. oz. 43.949363na; 24.00 BMI Method:Stated General Appearance: WD/WN, no apparent distress Eyes: Bilateral Eye Normal Inspection, Bilateral Eye PERRL, Bilateral Eye EOMI HEENT: PERRL/EOMI, normal ENT inspection, other Neck: non-tender, full range of motion, supple Respiratory: chest non-tender, lungs clear, normal breath sounds Cardiovascular: normal peripheral pulses, regular rate, rhythm Gastrointestinal: non tender, soft Neurologic/Psychiatric: alert, oriented x 3 Skin: normal color, warm/dry Focused Exam Sepsis Stage: Ruled Out Progress/Results/Core Measures Suspected Sepsis SIRS Temperature: Pulse: Respiratory Rate: Blood Pressure / Mean: Results/Orders My Orders Orders - ARAMIS DUQUE DO Acetaminophen Tablet (Tylenol Tablet) (07/16/22 20:45) Vital Signs/I&O Capillary Refill : Departure Communication (Admissions) Acute viral syndrome without respiratory compromise. No dizziness lightheadedness, sinus pain. Tylenol given. Recommendations are supportive care watchful waiting and PCP follow-up as needed. Return precautions reviewed. Impression Primary Impression: Acute viral syndrome Disposition: HOME, SELF-CARE Condition: Stable Departure-Patient Inst. Decision time for Depature: 20:42 Referrals: PURA COLON DO (PCP) Primary Care Physician NO,LOCAL PHYSICIAN (Family) Primary Care Physician Patient Instructions: Viral Upper Respiratory Infection, Adult (DC) Add. Discharge Instructions: You were evaluated in the emergency department for flulike illness. Please increase fluids, alternate Tylenol with ibuprofen for pain and fever. Take Mucinex D as directed and follow-up with your PCP early next week if symptoms persist. All discharge instructions reviewed with patient and/or family. Voiced understanding. Scripts Guaifenesin/Dextromethorphan (Mucinex Dm ER 1,200-60 mg Tab) 1,200 Mg-60 Mg Tbmp.12hr 1 EACH PO BID, #12 EA Prov: ARAMIS DUQUE DO 07/16/22 ARAMIS DUQUE DO Jul 16, 2022 20:44
[2022-07-16] MEDS ORDERED: ACETAMINOPHEN 500 MG TAB (TYLENOL) PO ONE (20:45)
== END 2022-07-16 20:46 | disposition home or self-care (01) ==
LOC: EDUNIT# 20:15 → ER FS 20:17
DX: B34.9 Viral infection, unspecified (principal); R50.9 Fever, unspecified; R51.9 Headache, unspecified; M79.10 Myalgia, unspecified site
CPT/HCPCS: 99283

== ENCOUNTER 2022-07-23 19:05 | Emergency (ER) | payer MEDICAID ==
[~2022-07-23] VITALS: Ht 165.1 cm; Wt 71.3 kg
[~2022-07-23 19:05] MED LIST changes: +GUAI1TBM19 PO
--- NOTE | 2022-07-23 19:21 | ED Pediatric Illness ---
HPI-Pediatric Illness General Chief Complaint: Cough/Cold/Flu Symptoms Stated Complaint: CONGESTION History of Present Illness Date Seen by Provider: Jul 23, 2022 Time Seen by Provider: 19:19 Initial Comments 32-year-old female who was tested positive for influenza A 1 week ago, is here with complaints of ongoing fever, cough, malaise, and generalized weakness, asso ciated with generalized abdominal pain, diarrhea, nausea and vomiting. Patient has only eaten a donut holes today. She has not been drinking much liquids. Patient took 1 tablet of ibuprofen in the morning and no other medication since then and has been having ongoing fever. Denies shortness of breath, chest pain. Patient's is also not feeling well. Allergies and Home Medications Allergies Coded Allergies: No Known Drug Allergies (Unverified , 02/26/13) Patient Home Medication List Home Medication List Reviewed: Yes Guaifenesin/Dextromethorphan (Mucinex Dm ER 1,200-60 mg Tab) 1,200 Mg-60 Mg Tbmp.12hr, 1 EACH PO BID Prescribed by: ARAMIS DUQUE on 07/16/222043 Meclizine HCl (Meclizine HCl) 25 Mg Tablet, 25 MG PO TID PRN for DIZZINESS Prescribed by: VIPIN NASH on 05/09/22 153 Review of Systems Review of Systems Constitutional: fever EENTM: no symptoms reported Respiratory: cough Cardiovascular: no symptoms reported Gastrointestinal: abdominal pain, diarrhea, loss of appetite, nausea, vomiting Genitourinary: no symptoms reported Musculoskeletal: no symptoms reported Skin: no symptoms reported Psychiatric/Neurological: No Symptoms Reported Endocrine: No Symptoms Reported Hematologic/Lymphatic: No Symptoms Reported PMH-Pediatrics Tetanus Booster (TDap): More than 5yrs Seasonal Allergies: No HX Surgeries: No Hx Respiratory Disorders: No Hx Cardiovascular Disorders: No Hx Neurological Disorders: Yes Neurological Disorders: Headaches /Migraines Hx Reproductive Disorders: No Sexually Transmitted Disease: No HIV/AIDS: No Female Reproductive Disorders: Ovarian Cyst Hx Genitourinary Disorders: Yes Genitourinary Disorders: Bladder Infection Hx Gastrointestinal Disorders: No Gastrointestinal Disorders: Gastroesophageal Reflux Hx Musculoskeletal Disorders: No Hx Endocrine Disorders: No HX ENT Disorders: No Hx Cancer: No Hx Psychiatric Problems: Yes Behavioral Health Disorders: Anxiety HX Skin/Integumentary Disorder: No Hx Blood Disorders: No Adverse Reaction to a Blood Tr: No Significant Family History: No Pertinent Family Hx Physical Exam-Pediatric Physical Exam Vital Signs - First Documented 07/23/22 19:07 Temp 38.7 Pulse 153 Resp 18 B/P (MAP) 113/80 (91) Pulse Ox 100 O2 Delivery Room Air Capillary Refill : Height, Weight, BMI Height: '" Weight: 97lbs. oz. 43.330668ie; 24.00 BMI Method:Stated General Appearance: no acute distress, see HPI HENT: head inspection normal Neck: non-tender, full range of motion, supple, normal inspection Respiratory: lungs clear, normal breath sounds, no respiratory distress, no accessory muscle use Cardiovascular: regular rate, rhythm Gastrointestinal: soft, abnormal bowel sounds, distended, tenderness Neurologic/Psychiatric: regional clinical director II-XII nml as tested, no motor/sensory deficits, alert, normal mood/affect, oriented x 3 Skin: normal color, warm/dry Progress/Results/Core Measures Results/Orders Lab Results Laboratory Tests Test 07/23/22 20:23 07/23/22 20:42 Range/Units White Blood Count 6.4 4.3-11.0 10^3/uL Red Blood Count 4.49 3.80-5.11 10^6/uL Hemoglobin 13.3 11.5-16.0 g/dL Hematocrit 38 35-52 % Mean Corpuscular Volume 85 80-99 fL Mean Corpuscular Hemoglobin 30 25-34 pg Mean Corpuscular Hemoglobin Concent 35 32-36 g/dL Red Cell Distribution Width 14.3 10.0-14.5 % Platelet Count 208 130-400 10^3/uL Mean Platelet Volume 11.3 9.0-12.2 fL Immature Granulocyte % (Auto) 1 % Neutrophils (%) (Auto) 66 42-75 % Lymphocytes (%) (Auto) 16 12-44 % Monocytes (%) (Auto) 17 H 0-12 % Eosinophils (%) (Auto) 0 0-10 % Basophils (%) (Auto) 0 0-10 % Neutrophils # (Auto) 4.2 1.8-7.8 10^3/uL Lymphocytes # (Auto) 1.0 1.0-4.0 10^3/uL Monocytes # (Auto) 1.1 H 0.0-1.0 10^3/uL Eosinophils # (Auto) 0.0 0.0-0.3 10^3/uL Basophils # (Auto) 0.0 0.0-0.1 10^3/uL Immature Granulocyte # (Auto) 0.1 0.0-0.1 10^3/uL Sodium Level 131 L 135-145 MMOL/L Potassium Level 3.3 L 3.6-5.0 MMOL/L Chloride Level 94 L 98-107 MMOL/L Carbon Dioxide Level 25 21-32 MMOL/L Anion Gap 12 5-14 MMOL/L Blood Urea Nitrogen 9 7-18 MG/DL Creatinine 0.82 0.60-1.30 MG/DL Estimat Glomerular Filtration Rate 98 BUN/Creatinine Ratio 11 Glucose Level 123 H 70-105 MG/DL Calcium Level 8.1 L 8.5-10.1 MG/DL Corrected Calcium 9.1 8.5-10.1 MG/DL Total Bilirubin 0.6 0.1-1.0 MG/DL Aspartate Amino Transf (AST/SGOT) 26 5-34 U/L Alanine Aminotransferase (ALT/SGPT) 98 H 0-55 U/L Alkaline Phosphatase 127 40-136 U/L Total Protein 6.4 6.4-8.2 GM/DL Albumin 2.8 L 3.2-4.5 GM/DL Monoscreen NEGATIVE NEGATIVE Urine Color DARK YELLOW Urine Clarity CLOUDY Urine pH 6.0 5-9 Urine Specific [place] >=1.030 1.016-1.022 Urine Protein 2+ H NEGATIVE Urine Glucose (UA) NEGATIVE NEGATIVE Urine Ketones NEGATIVE NEGATIVE Urine Nitrite NEGATIVE NEGATIVE Urine Bilirubin 1+ H NEGATIVE Urine Urobilinogen 0.2 < = 1.0 MG/DL Urine Leukocyte Esterase TRACE H NEGATIVE Urine RBC (Auto) TRACE-I H NEGATIVE Urine RBC NONE /HPF Urine WBC 50-100 H /HPF Urine Squamous Epithelial Cells >50 H /HPF Urine Crystals NONE /LPF Urine Bacteria LARGE H /HPF Urine Casts PRESENT /LPF Urine Granular Casts 5-10 H /LPF Urine Mucus LARGE H /LPF Urine Yeast FEW H /HPF Urine Culture Indicated NO Urine Test NEGATIVE NEGATIVE Urine Opiates Screen NEGATIVE NEGATIVE Urine Oxycodone Screen NEGATIVE NEGATIVE Urine Methadone Screen NEGATIVE NEGATIVE Urine Propoxyphene Screen NEGATIVE NEGATIVE Urine Barbiturates Screen NEGATIVE NEGATIVE Ur Tricyclic Antidepressants Screen POSITIVE H NEGATIVE Urine Phencyclidine Screen NEGATIVE NEGATIVE Urine Amphetamines Screen NEGATIVE NEGATIVE Urine Methamphetamines Screen NEGATIVE NEGATIVE Urine Benzodiazepines Screen NEGATIVE NEGATIVE Urine Cocaine Screen NEGATIVE NEGATIVE Urine Cannabinoids Screen NEGATIVE NEGATIVE My Orders Orders - OTILIO OCAMPO MD Acetaminophen Tablet (Tylenol Tablet) (07/23/22 19:30) Chest 1 View Ap/Pa Only (07/23/22 19:24) Acetaminophen Tablet (Tylenol Tablet) (07/23/22 19:37) Ondansetron Oral Dissolve Tab (Zofran (07/23/22 19:42) Ketorolac Injection (Toradol Injection) (07/23/22 19:45) Cbc With Automated Diff (07/23/22 20:09) Comprehensive Metabolic Panel (07/23/22 20:09) Drug Screen Stat (Urine) (07/23/22 20:09) Ua Culture If Indicated (07/23/22 20:09) Ct Abdomen/Pelvis W (07/23/22 20:10) Procalcitonin (Pct) (07/23/22 20:13) Iohexol Injection (Omnipaque 350 Mg/Ml 1 (07/23/22 20:15) Received Contrast (Hold Metformin- Contr (07/23/22 20:15) Ns (Ivpb) (Sodium Chloride 0.9% Ivpb Bag (07/23/22 20:15) Ed Iv/Invasive Line Start (07/23/22 20:14) Ns Iv 1000 Ml (Sodium Chloride 0.9%) (07/23/22 20:15) Hcg,Qualitative Urine (07/23/22 20:18) Monotest (07/23/22 20:45) Ns Iv 1000 Ml (Sodium Chloride 0.9%) (07/23/22 20:34) Potassium Chloride (Tablet) (K Dur Table (07/23/22 21:45) Medications Given in ED Current Medications Medications Dose Ordered Sig/Ginette Route Start Time Stop Time Status Last Admin Dose Admin Acetaminophen 1,000 mg ONCE ONCE PO 07/23/22 19:30 07/23/22 19:31 DC 07/23/22 19:36 1,000 MG Iohexol 75 ml ONCE ONCE IV 07/23/22 20:15 07/23/22 20:16 DC 07/23/22 20:26 75 ML Ketorolac Tromethamine 30 mg ONCE ONCE IM 07/23/22 19:45 07/23/22 19:46 DC 07/23/22 20:12 30 MG Potassium Chloride 40 meq ONCE ONCE PO 07/23/22 21:45 07/23/22 21:46 DC 07/23/22 21:50 40 MEQ Sodium Chloride 100 ml ONCE ONCE IV 07/23/22 20:15 07/23/22 20:16 DC 07/23/22 20:26 100 ML Vital Signs/I&O 07/23/22 07/23/22 19:07 19:36 Temp 38.7 38.4 Pulse 153 Resp 18 B/P (MAP) 113/80 (91) Pulse Ox 100 O2 Delivery Room Air Progress Progress Note : Progress Note 1. VIRAL BI-BASILAR PNEUMONIA DUE TO INFLUENZA A: - CXR: bibasilar infiltrates vs atelectasis - Influenza A positive - CBC: normal WBC and neutrophils. Elevated monocyte lebvel: 17 - Monospot test negative - Pt was initially given Tylenol for fever, but she vomited it up immediately - Toradol/ NS IVF/ Zofran given in ER with pt 's symptoms improving - Take home prescription of Zofran ODT -Viral pneumonia likely due to influenza A, with normal WBC so will not start on antibiotics for pneumonia at this time -Patient has not been taking her medication appropriately for fever relief. For example patient took 1 dose of ibuprofen today morning has not taken any more medication since then. Educated patient regarding how to alternate Tylenol and ibuprofen to keep the fever down. 2. ABDOMINAL:COLITIS: INFLAMMATORY vs INFECTIOUS - CT ABD/ PELVIS: colitis - UDA : unremarkable -[place] diet, encourage patient for adequate water intake and explained importance of it 3. ACUTE UTI: - UA is positive for leukocyte esterase, bacteria, WBC - Keflex bid for 5 days -Adequate water intake advised 4. MILD HYPONATREMIA/ HYPOKALEMIA: - s. Na is 131 and s. K is 3.3 - NS IVF bolus and oral Potassium 40mEq given in ER - Advised adequate nutritious diet and fluids - Follow up with PCP for lab check in 7 to 10 days -The patient was seen in the ED, and treated appropriately to presentation at a specific point in time. Patient is informed that there is a possibility that disease and illness can evolve and change in acuity rapidly or slowly after patient is discharged from the ER. Precautionary advice given to the patient for immediate return to ER if symptoms worsen or do not resolve, and to seek emergency care sooner rather than later. Pt also advised on the importance of PCP follow up and compliance with management and follow up plan with PCP and/or specialist, as this is part of the management plan. Pt verbally expressed understanding. Diagnostic Imaging Diagonstic Imaging: Xray, CT Plain Films/CT/US/NM/MRI: chest, abdomen Comments [facility]. [place], [place] NAME: HUSSEIN COBIAN [facility] REC#: [id number] PT STATUS: REG ER : 1990 PHYSICIAN: OTILIO OCAMPO MD ADMIT DATE: 07/23/22/ER FS Signed Date of Exam:07/23/22 CT ABDOMEN/PELVIS W PROCEDURE: CT abdomen and pelvis with contrast. TECHNIQUE: Multiple contiguous axial images were obtained through the abdomen and pelvis after administration of intravenous contrast. Auto Exposure Controls were utilized during the CT exam to meet ALARA standards for radiation dose reduction. All CT scans use one or more of the following dose optimizing techniques: automated exposure control, MA and/or KvP adjustment based on patient size and exam type or iterative reconstruction. INDICATION: Intractable vomiting. COMPARISON: 12/02/2020. FINDINGS: Mild bibasilar atelectasis versus interstitial infiltrate. Cholecystectomy. The liver and spleen are unremarkable. The adrenal glands are unremarkable. The pancreas is unremarkable. The kidneys are unremarkable. No aneurysmal dilatation of the abdominal aorta. Small fat-containing umbilical hernia. The urinary bladder is unremarkable. The uterus and adnexal structures are unremarkable for age. Significant mural thickening of the colon is noted, greatest involving the distal transverse colon extending through the sigmoid colon. Mild adjacent pericolonic inflammatory stranding is also noted. The proximal to mid colon is at the upper limits of normal in size, though there is no focal transition point. Mild mural thickening of the terminal ileum is also present. No small bowel obstruction. No significant adenopathy or free air. Trace free fluid. No acute osseous abnormality. IMPRESSION: Significant mural thickening with minimal pericolonic inflammatory stranding with the colon appearing at the upper limits of normal in size. This is felt to relate to underlying colitis, potentially from underlying infectious or inflammatory process. Crohn's disease could be considered given mild mural thickening of the terminal ileum is also noted. Minimal bibasilar atelectasis and/or pneumonitis. Cholecystectomy. Additional findings as above. Dictated by: Dictated on workstation # [id number] Dict: 07/23/222038 Trans: 07/23/222049 PJE [id number] Interpreted by: SHAILESH GAVIRIA MD Electronically signed by: SHAILESH GAVIRIA MD 07/23/222049 [facility] [place], [place] NAME: HUSSEIN COBIAN [facility] REC#: [id number] PT STATUS: REG ER : 1990 PHYSICIAN: OTILIO OCAMPO MD ADMIT DATE: 07/23/22/ER FS Draft Date of Exam:07/23/22 CHEST 1 VIEW AP/PA ONLY INDICATION: Cough, fever. COMPARISON: 05/09/2022. TECHNIQUE: Single radiograph of the chest dated July 23, 2022. FINDINGS: The cardiac silhouette is within normal limits in size. No significant pulmonary vascular congestion. Mild linear interstitial opacities are identified within the left lung base which are new from the prior examination. The right lung appears clear. No significant pleural effusion. No pneumothorax. Gas distended loops of large and small bowel are noted within the upper abdomen, though only partially visualized. Surgical clips in the right upper quadrant of the abdomen. No acute osseous abnormality. IMPRESSION: New left basilar atelectasis versus infiltrate. Prominent gas-filled loops of large and small bowel within the upper abdomen are partially visualized. This is nonspecific though underlying ileus or potentially even distal colonic obstruction not completely excluded. Recommend clinical correlation. Should there remain clinical concern for the abdomen, itself, then dedicated radiographs versus CT of the abdomen would be recommended. Dictated on workstation # [id number] Dict: 07/23/221957 Trans: 07/23/222001 PJE [id number] Interpreted by: SHAILSEH GAVIRIA MD Electronically signed by: Departure Impression Primary Impression: Influenza A with pneumonia Additional Impressions: Acute colitis Acute cystitis with hematuria Hyponatremia Hypokalemia Disposition: 01 HOME, SELF-CARE Condition: Stable Departure-Patient Inst. Referrals: PURA COLON DO (PCP) Primary Care Physician NO,LOCAL PHYSICIAN (Family) Primary Care Physician Patient Instructions: High Potassium Diet, Urinary Tract Infection, Adult ED, Colitis (DC), Colitis Add. Discharge Instructions: - Alternate Tylenol and ibuprofen every 3 hours to keep the fever down. -[place] diet, encourage patient for adequate water intake and explained importance of it - Keflex bid for 5 days -Adequate water intake advised - Advised adequate nutritious diet and fluids - Follow up with PCP for lab check in 7 to 10 days All discharge instructions reviewed with patient and/or family. Voiced understanding. Scripts Cephalexin (Cephalexin) 500 Mg Tablet 500 MG PO BID for 5 Days, #10 TAB Prov: OTILIO OCAMPO MD 07/23/22 OTILIO OCAMPO MD Jul 23, 2022 19:21
[2022-07-23] MEDS ORDERED: ACETAMINOPHEN 500 MG TAB (TYLENOL) PO ONE (19:30)
[2022-07-23] MEDS ORDERED: ACETAMINOPHEN 500 MG TAB (TYLENOL) ONE (19:37)
[2022-07-23] MEDS ORDERED: ONDANSETRON 4 MG (ZOFRAN) ORAL DISSOLVE TAB PO STA (19:42)
[2022-07-23] MEDS ORDERED: KETOROLAC 30 MG/ML VIAL IM ONE (19:45)
--- NOTE | 2022-07-23 20:02 | Diagnostic Imaging Report ---
INDICATION: Cough, fever. COMPARISON: 05/09/2022. TECHNIQUE: Single radiograph of the chest dated July 23, 2022. FINDINGS: The cardiac silhouette is within normal limits in size. No significant pulmonary vascular congestion. Mild linear interstitial opacities are identified within the left lung base which are new from the prior examination. The right lung appears clear. No significant pleural effusion. No pneumothorax. Gas distended loops of large and small bowel are noted within the upper abdomen, though only partially visualized. Surgical clips in the right upper quadrant of the abdomen. No acute osseous abnormality. IMPRESSION: New left basilar atelectasis versus infiltrate. Prominent gas-filled loops of large and small bowel within the upper abdomen are partially visualized. This is nonspecific though underlying ileus or potentially even distal colonic obstruction not completely excluded. Recommend clinical correlation. Should there remain clinical concern for the abdomen, itself, then dedicated radiographs versus CT of the abdomen would be recommended. Dictated by: Dictated on workstation # [id number]
[2022-07-23] MEDS ORDERED: HOLD METFORMIN - RECEIVED CONTRAST 20 ML VIAL IV SCH (20:15)
[2022-07-23] MEDS ORDERED: NS 100 ML (IVPB) BAG IV ONE (20:15)
[2022-07-23] MEDS ORDERED: NS IV 1000 ML 1,000 ML IV SCH (20:15)
[2022-07-23] MEDS ORDERED: IOHEXOL 350 MG/ML 100 ML (OMNIPAQUE 350) VIAL IV ONE (20:15)
[2022-07-23 20:29] LABS: BASOPHILS % (AUTO) 0 % (0-10); EOSINOPHILS % (AUTO) 0 % (0-10); HEMATOCRIT 38 % (35-52); HEMOGLOBIN 13.3 g/dL (11.5-16.0); LYMPHOCYTES % (AUTO) 16 % (12-44); MEAN CORPUSCULAR HEMOGLOBIN 30 pg (25-34); MEAN CORPUSCULAR HGB CONC 35 g/dL (32-36); MEAN CORPUSCULAR VOLUME 85 fL (80-99); MEAN PLATELET VOLUME 11.3 fL (9.0-12.2); MONOCYTES # (AUTO) 1.1 10^3/uL (0.0-1.0); MONOCYTES % (AUTO) 17 % (0-12); NEUTROPHILS # (AUTO) 4.2 10^3/uL (1.8-7.8); NEUTROPHILS % (AUTO) 66 % (42-75); PLATELET COUNT 208 10^3/uL (130-400); WHITE BLOOD COUNT 6.4 10^3/uL (4.3-11.0)
[2022-07-23] MEDS ORDERED: NS IV 1000 ML 1,000 ML ONE (20:34)
--- NOTE | 2022-07-23 20:49 | Diagnostic Imaging Report ---
PROCEDURE: CT abdomen and pelvis with contrast. TECHNIQUE: Multiple contiguous axial images were obtained through the abdomen and pelvis after administration of intravenous contrast. Auto Exposure Controls were utilized during the CT exam to meet ALARA standards for radiation dose reduction. All CT scans use one or more of the following dose optimizing techniques: automated exposure control, MA and/or KvP adjustment based on patient size and exam type or iterative reconstruction. INDICATION: Intractable vomiting. COMPARISON: 12/02/2020. FINDINGS: Mild bibasilar atelectasis versus interstitial infiltrate. Cholecystectomy. The liver and spleen are unremarkable. The adrenal glands are unremarkable. The pancreas is unremarkable. The kidneys are unremarkable. No aneurysmal dilatation of the abdominal aorta. Small fat-containing umbilical hernia. The urinary bladder is unremarkable. The uterus and adnexal structures are unremarkable for age. Significant mural thickening of the colon is noted, greatest involving the distal transverse colon extending through the sigmoid colon. Mild adjacent pericolonic inflammatory stranding is also noted. The proximal to mid colon is at the upper limits of normal in size, though there is no focal transition point. Mild mural thickening of the terminal ileum is also present. No small bowel obstruction. No significant adenopathy or free air. Trace free fluid. No acute osseous abnormality. IMPRESSION: Significant mural thickening with minimal pericolonic inflammatory stranding with the colon appearing at the upper limits of normal in size. This is felt to relate to underlying colitis, potentially from underlying infectious or inflammatory process. Crohn's disease could be considered given mild mural thickening of the terminal ileum is also noted. Minimal bibasilar atelectasis and/or pneumonitis. Cholecystectomy. Additional findings as above. Dictated by: Dictated on workstation # [id number]
[2022-07-23 21:03] LABS: ALBUMIN 2.8 GM/DL (3.2-4.5); BILIRUBIN,TOTAL 0.6 MG/DL (0.1-1.0); CALCIUM 8.1 MG/DL (8.5-10.1); CREATININE SERUM 0.82 MG/DL (0.60-1.30); POTASSIUM 3.3 MMOL/L (3.6-5.0); TOTAL PROTEIN 6.4 GM/DL (6.4-8.2)
[2022-07-23 21:10] LABS: HCG,QUALITATIVE URINE NEGATIVE (NEGATIVE)
[2022-07-23 21:18] LABS: BACTERIA,URINE LARGE /HPF; BILIRUBIN,URINE 1+ (NEGATIVE); CLARITY,URINE CLOUDY; COLOR,URINE DARK YELLOW; GLUCOSE, URINE (UA) NEGATIVE (NEGATIVE); KETONES,URINE NEGATIVE (NEGATIVE); LEUKOCYTE ESTERASE ,URINE TRACE (NEGATIVE); NITRITE,URINE NEGATIVE (NEGATIVE); PROTEIN,URINE 2+ (NEGATIVE); SQUAMOUS EPITHELIAL CELL,UR >50 /HPF; WBC,URINE 50-100 /HPF; YEAST,URINE FEW /HPF
[2022-07-23 21:20] LABS: AMPHETAMINE SCREEN, URINE NEGATIVE (NEGATIVE); BARBITURATE SCREEN URINE NEGATIVE (NEGATIVE); BENZODIAZEPINES SCREEN URINE NEGATIVE (NEGATIVE); CANNABINOID SCREEN, URINE NEGATIVE (NEGATIVE); COCAINE SCREEN URINE NEGATIVE (NEGATIVE); METHADONE STAT NEGATIVE (NEGATIVE); OPIATE SCREEN URINE NEGATIVE (NEGATIVE); OXYCODONE STAT NEGATIVE (NEGATIVE); PROPOXYPHENE STAT NEGATIVE (NEGATIVE); TRICYCLIC ANTIDEPRESSANTS SCRE POSITIVE (NEGATIVE)
[2022-07-23] MEDS ORDERED: KCL 20 MEQ TAB (K-DUR) PO ONE (21:45)
[2022-07-23] MEDS ORDERED: CEPH500T PO (22:06)
[2022-07-23 22:10] VITALS: BP 113/80
[2022-07-23] MEDS ORDERED: RX-ONDANSETRON 4 MG ODT (ZOFRAN) PPK #4 PO PRN (22:15)
== END 2022-07-23 22:11 | disposition home or self-care (01) ==
LOC: EDUNIT# 19:05 → ER FS 19:07
DX: J10.00 Influenza due to other identified influenza virus with unspecified type of pneumonia (principal); K52.9 Noninfective gastroenteritis and colitis, unspecified; N30.01 Acute cystitis with hematuria; E87.1 Hypo-osmolality and hyponatremia; E87.6 Hypokalemia; Z32.02 Encounter for pregnancy test, result negative
CPT/HCPCS: 36415; 71045; 74177; 80053; 80306; 81000; 84145; 84703; 85025; 86308; 96360; 96372; Q9967

== ENCOUNTER 2022-07-25 16:19 | Emergency (ER) | payer MEDICAID ==
[~2022-07-25] VITALS: Ht 165 cm; Wt 69.0 kg
[~2022-07-25 16:19] MED LIST changes: +CEPH500T PO
[2022-07-25] MEDS ORDERED: diphenhydrAMINE 50 MG/ML INJ (BENADRYL) IM ONE (17:15)
[2022-07-25] MEDS ORDERED: NS IV 1000 ML 1,000 ML IV SCH (17:15)
[2022-07-25] MEDS ORDERED: ACETAMINOPHEN 500 MG TAB (TYLENOL) PO ONE (17:15)
[2022-07-25] MEDS ORDERED: DICYCLOMINE 10 MG/ML (BENTYL) 2 ML AMP IM ONE (17:18)
[2022-07-25 17:37] LABS: BASOPHILS # (AUTO) 0.1 10^3/uL (0.0-0.1); BASOPHILS % (AUTO) 1 % (0-10); EOSINOPHILS % (AUTO) 0 % (0-10); HEMATOCRIT 38 % (35-52); LYMPHOCYTES # (AUTO) 1.5 10^3/uL (1.0-4.0); LYMPHOCYTES % (AUTO) 14 % (12-44); MEAN CORPUSCULAR HEMOGLOBIN 30 pg (25-34); MEAN CORPUSCULAR HGB CONC 35 g/dL (32-36); MEAN CORPUSCULAR VOLUME 86 fL (80-99); MEAN PLATELET VOLUME 10.4 fL (9.0-12.2); MONOCYTES # (AUTO) 2.1 10^3/uL (0.0-1.0); MONOCYTES % (AUTO) 19 % (0-12); NEUTROPHILS # (AUTO) 7.4 10^3/uL (1.8-7.8); NEUTROPHILS % (AUTO) 66 % (42-75); PLATELET COUNT 392 10^3/uL (130-400); WHITE BLOOD COUNT 11.3 10^3/uL (4.3-11.0)
--- NOTE | 2022-07-25 17:39 | ED Abdominal Pain ---
General Chief Complaint: Abdominal/GI Problems Stated Complaint: FLU+,ABD PAIN Nursing Triage Note: PT HAS RETURNED TO THE ER FROM HER VISIT MONDAY WITH ABDOMINAL PAIN. SHE HAS NOT TAKEN ANYTHING FOR THE PAIN BECAUSE SHE DID NOT THINK TYLENOL WOULD WORK. Source of Information: Patient Exam Limitations: No Limitations History of Present Illness Date Seen by Provider: Jul 25, 2022 Time Seen by Provider: 16:15 Initial Comments Patient is a 32-year-old female evaluated in this emergency department 2 days ago for chest pain, abdominal pain in the setting of recent influenza. Patient had lab and imaging studies performed and was diagnosed with possible pneumonia, colitis and urinary tract infection. She was discharged home on cephalexin, which she has taken. Patient reports persistent upper abdominal cramping, ful lness and distention. She states pain is worse with palpation and movement and is minimally relieved with position change. She has not had nausea vomiting but has had episodes of nonbloody diarrhea with incontinence. She denies fever chills sweats nausea or vomiting. In review of emergency medical record, the patient had an elevation white blood cell, neutrophils, procalcitonin and CT findings suggested of undifferentiated colitis. She has not had any pain medication since leaving the emergency department Timing/Duration: 12-24 Hours Severity/Quality: Moderate Location: Epigastric, Other Radiation: Other Activities at Onset: Other Modifying Factors: Improves With Other Associated Symptoms: Other Allergies and Home Medications Allergies Coded Allergies: No Known Drug Allergies (Unverified , 02/26/13) Patient Home Medication List Home Medication List Reviewed: Yes Cephalexin (Cephalexin) 500 Mg Tablet, 500 MG PO BID Prescribed by: OTILIO OCAMPO MD on 07/23/222205 Guaifenesin/Dextromethorphan (Mucinex Dm ER 1,200-60 mg Tab) 1,200 Mg-60 Mg Tbmp.12hr, 1 EACH PO BID Prescribed by: ARAMIS DUQUE on 07/16/222043 Meclizine HCl (Meclizine HCl) 25 Mg Tablet, 25 MG PO TID PRN for DIZZINESS Prescribed by: VIPIN NASH on 05/09/22 1530 Review of Systems Review of Systems Constitutional: see HPI EENTM: See HPI Respiratory: See HPI Cardiovascular: See HPI Gastrointestinal: See HPI Genitourinary: See HPI Musculoskeletal: see HPI Skin: see HPI Psychiatric/Neurological: See HPI Endocrine: See HPI Hematologic/Lymphatic: See HPI All Other Systems Reviewed Negative Unless Noted: No Past Wpjrfne-Sqqjvw-Qslsqk Hx Patient Social History Tobacco Use?: No Use of E-Cig and/or Vaping dev: No Substance use?: No Alcohol Use?: No Pt feels they are or have been: No Immunizations Up To Date Tetanus Booster (TDap): More than 5yrs First/Initial COVID19 Vaccinat: 09/13 Second COVID19 Vaccination Dominic: 09/13 Third COVID19 Vaccination Date: 09/13 Seasonal Allergies Seasonal Allergies: No Past Medical History Surgery/Hospitalization HX: C section x2, tonsils Surgeries: Yes Gallbladder Respiratory: No Cardiac: No Neurological: No Reproductive Disorders: No Female Reproductive Disorders: Ovarian Cyst Sexually Transmitted Disease: No HIV/AIDS: No Genitourinary: No Bladder Infection Gastrointestinal: Yes Gastroesophageal Reflux Musculoskeletal: No Endocrine: No HEENT: No Cancer: No Psychosocial: Yes Anxiety Integumentary: No Blood Disorders: No Adverse Reaction/Blood Tranf: No Family Medical History No Pertinent Family Hx Physical Exam Vital Signs Vital Signs - First Documented 07/25/22 16:44 Temp 38.6 Pulse 141 Resp 20 B/P (MAP) 132/73 (92) Pulse Ox 96 O2 Delivery Room Air Capillary Refill : Less Than 3 Seconds Height/Weight/BMI Height: '" Weight: 97lbs. oz. 43.178822bw; 25.00 BMI Method:Stated General Appearance: WD/WN, no apparent distress HEENT: PERRL/EOMI, normal ENT inspection Neck: non-tender, supple Respiratory: chest non-tender, lungs clear Cardiovascular: regular rate, rhythm Gastrointestinal: soft, distended Extremities: non-tender, normal inspection Back: no CVA tenderness Neurologic/Psychiatric: alert, normal mood/affect, oriented x 3 Focused Exam Sepsis Stage: Ruled Out Progress/Results/Core Measures Results/Orders Lab Results Laboratory Tests Test 07/25/22 17:31 Range/Units White Blood Count 11.3 H 4.3-11.0 10^3/uL Red Blood Count 4.38 3.80-5.11 10^6/uL Hemoglobin 13.0 11.5-16.0 g/dL Hematocrit 38 35-52 % Mean Corpuscular Volume 86 80-99 fL Mean Corpuscular Hemoglobin 30 25-34 pg Mean Corpuscular Hemoglobin Concent 35 32-36 g/dL Red Cell Distribution Width 14.6 H 10.0-14.5 % Platelet Count 392 130-400 10^3/uL Mean Platelet Volume 10.4 9.0-12.2 fL Immature Granulocyte % (Auto) 1 % Neutrophils (%) (Auto) 66 42-75 % Lymphocytes (%) (Auto) 14 12-44 % Monocytes (%) (Auto) 19 H 0-12 % Eosinophils (%) (Auto) 0 0-10 % Basophils (%) (Auto) 1 0-10 % Neutrophils # (Auto) 7.4 1.8-7.8 10^3/uL Lymphocytes # (Auto) 1.5 1.0-4.0 10^3/uL Monocytes # (Auto) 2.1 H 0.0-1.0 10^3/uL Eosinophils # (Auto) 0.0 0.0-0.3 10^3/uL Basophils # (Auto) 0.1 0.0-0.1 10^3/uL Immature Granulocyte # (Auto) 0.1 0.0-0.1 10^3/uL Neutrophils % (Manual) 53 % Lymphocytes % (Manual) 14 % Monocytes % (Manual) 12 % Eosinophils % (Manual) 0 % Basophils % (Manual) 0 % Band Neutrophils 21 % Sodium Level 131 L 135-145 MMOL/L Potassium Level 3.1 L 3.6-5.0 MMOL/L Chloride Level 92 L 98-107 MMOL/L Carbon Dioxide Level 20 L 21-32 MMOL/L Anion Gap 19 H 5-14 MMOL/L Blood Urea Nitrogen 8 7-18 MG/DL Creatinine 0.84 0.60-1.30 MG/DL Estimat Glomerular Filtration Rate 95 BUN/Creatinine Ratio 10 Glucose Level 93 70-105 MG/DL Calcium Level 8.6 8.5-10.1 MG/DL Corrected Calcium 9.4 8.5-10.1 MG/DL Total Bilirubin 0.6 0.1-1.0 MG/DL Aspartate Amino Transf (AST/SGOT) 26 5-34 U/L Alanine Aminotransferase (ALT/SGPT) 47 0-55 U/L Alkaline Phosphatase 109 40-136 U/L C-Reactive Protein 32.54 H <0.50 MG/DL Total Protein 6.9 6.4-8.2 GM/DL Albumin 3.0 L 3.2-4.5 GM/DL My Orders Orders - ARAMIS DUQUE Acetaminophen Tablet (Tylenol Tablet) (07/25/22 17:15) Diphenhydramine Injection (Benadryl Inje (07/25/22 17:15) Cbc With Automated Diff (07/25/22 17:15) Comprehensive Metabolic Panel (07/25/22 17:15) Procalcitonin (Pct) (07/25/22 17:15) Crp Fs (07/25/22 17:15) Ns Iv 1000 Ml (Sodium Chloride 0.9%) (07/25/22 17:15) Dicyclomine Injection (Bentyl Injection) (07/25/22 17:18) Manual Differential (07/25/22 17:31) Morphine Injection (Morphine Injection (07/25/22 19:28) Methylprednisolone Sod Succ (Solu-Medrol (07/25/22 19:45) Medications Given in ED Current Medications Medications Dose Ordered Sig/Ginette Route Start Time Stop Time Status Last Admin Dose Admin Acetaminophen 500 mg ONCE ONCE PO 07/25/22 17:15 07/25/22 17:16 DC 07/25/22 17:28 500 MG Dicyclomine HCl 20 mg STK-MED ONCE IM 07/25/22 17:18 07/25/22 17:21 DC 07/25/22 17:28 20 MG Diphenhydramine HCl 25 mg ONCE ONCE IM 07/25/22 17:15 07/25/22 17:16 DC 07/25/22 17:27 25 MG Methylprednisolone Sodium Succinate 125 mg ONCE ONCE IVP 07/25/22 19:45 07/25/22 19:46 07/25/22 19:35 125 MG Vital Signs/I&O 07/25/22 16:44 Temp 38.6 Pulse 141 Resp 20 B/P (MAP) 132/73 (92) Pulse Ox 96 O2 Delivery Room Air Blood Pressure Mean: 92 Departure Communication (Admissions) Patient with poorly differentiated upper abdominal pain with recent CT findings suggestive of undifferentiated colitis. Recent ED visit, medical records, imaging and lab reports reviewed. Patient's abdomen remains soft nonsurgical on repeat exam no peritoneal findings are present. Patient with mild elevation of white blood cell count with significant elevation of C-reactive protein most consistent with inflammatory bowel disease versus infectious colitis. Symptoms are improved with treatment in the emergency department. Patient offered hospital admission for further treatment and subspecialty consult. Patient is able to tolerate oral intake and prefers to follow-up with local surgeon in the office to arrange for outpatient colonoscopy and PCP for further management. Patient will be discharged ED with a 4-day course of steroids, weeklong course of antibiotics with anaerobic coverage, and adequate pain medication. She is instructed to drink clear liquids only for the next 12 to 24 hours and follow-up with her PCP in the next 1 to [address] Singh's office to schedule follow-up appointment. Return precautions reviewed. Patient verbalizes understanding agreement with discharge instructions prior to departure. Impression Primary Impression: Abdominal pain Additional Impression: Acute colitis Disposition: 01 HOME, SELF-CARE Condition: Stable Departure-Patient Inst. Decision time for Depature: 19:43 Referrals: PURA COLON DO (PCP) Primary Care Physician NO,LOCAL PHYSICIAN (Family) Primary Care Physician Patient Instructions: Colitis (DC), Abdominal Pain, Adult ED Add. Discharge Instructions: You were evaluated in the emergency department for abdominal pain. Labs and imaging studies are consistent with colitis or inflammation of the large bowel wall. Please drink clear liquids only for the next 12 to 24 hours and take newly prescribed medications as directed. Contact your PCP to schedule follow- up appointment in the next [address] Singh on-call for general surgery to schedule a colonoscopy in 5 to 6 weeks. In the meantime if you develop new or worsening symptoms, return to the emergency department. All discharge instructions reviewed with patient and/or family. Voiced understanding. Scripts Prednisone (Prednisone) 20 Mg Tab 40 MG PO DAILY, #5 TAB 0 Refills Prov: ARAMIS DUQUE DO 07/25/22 Hydrocodone/Acetaminophen (Hydrocodone-Acetamin 5-325 mg) 5 Mg-325 Mg Tablet 1 TAB PO Q4H PRN for PAIN-MODERATE (5-7), #10 TAB Prov: ARAMIS DUQUE DO 07/25/22 Metronidazole (Metronidazole) 500 Mg Tablet 500 MG PO TID, #21 TAB Prov: ARAMIS DUQUE DO 07/25/22 ARAMIS DUQUE DO Jul 25, 2022 17:39
[2022-07-25 18:02] LABS: CREATININE SERUM 0.84 MG/DL (0.60-1.30); POTASSIUM 3.1 MMOL/L (3.6-5.0)
[2022-07-25 18:03] LABS: BILIRUBIN,TOTAL 0.6 MG/DL (0.1-1.0); CALCIUM 8.6 MG/DL (8.5-10.1); TOTAL PROTEIN 6.9 GM/DL (6.4-8.2)
[2022-07-25 18:17] LABS: BAND NEUTROPHILS 21 %; BASOPHILS % (MANUAL) 0 %; EOSINOPHILS % (MANUAL) 0 %; LYMPHOCYTES % (MANUAL) 14 %; MONOCYTES % (MANUAL) 12 %; NEUTROPHILS % (MANUAL) 53 %
[2022-07-25] MEDS ORDERED: morphine INJ 10 MG/ML 1ML (SYR OR VIAL) IVP STA (19:28)
[2022-07-25] MEDS ORDERED: methylPREDNISolone 125 MG (Solu-MEDROL) VIAL IM ONE (19:30)
[2022-07-25] MEDS ORDERED: methylPREDNISolone 125 MG (Solu-MEDROL) VIAL IVP ONE (19:45)
[2022-07-25] MEDS ORDERED: PRD20T PO (19:46)
[2022-07-25] MEDS ORDERED: METR-145 PO (19:46)
[2022-07-25] MEDS ORDERED: ACHD5005 PO (19:46)
[2022-07-25 19:51] VITALS: BP 127/72
== END 2022-07-25 19:52 | disposition home or self-care (01) ==
LOC: EDUNIT# 16:19 → ER FS 16:20
DX: K52.9 Noninfective gastroenteritis and colitis, unspecified (principal)
CPT/HCPCS: 36415; 80053; 84145; 85007; 85027; 86141; 99281

== ENCOUNTER 2023-01-15 07:51 | Emergency (ER) | payer MEDICAID ==
[~2023-01-15] VITALS: Ht 165.1 cm; Wt 77.0 kg
[~2023-01-15 07:51] MED LIST changes: +METR-145 PO; +PRD20T PO
--- NOTE | 2023-01-15 08:02 | ED Back Pain ---
General Chief Complaint: Back Problems Stated Complaint: BACK PAIN History of Present Illness Date Seen by Provider: Jan 15, 2023 Time Seen by Provider: 07:57 Initial Comments 32-year-old female with left lower back pain. She reports that she awoke with it. Patient reports that yesterday at work she did a lot more physical activity move furniture that she normally does not do. She does not have any radiation of pain. It gets worse with movement. No nausea vomiting fevers chills or difficulty urinating or hematuria Allergies and Home Medications Allergies Coded Allergies: No Known Drug Allergies (Unverified , 02/26/13) Patient Home Medication List Home Medication List Reviewed: Yes Cephalexin (Cephalexin) 500 Mg Tablet, 500 MG PO BID Prescribed by: OTILIO OCAMPO MD on 07/23/222205 Cyclobenzaprine HCl (Cyclobenzaprine HCl) 5 Mg Tablet, 5 MG PO BID PRN for BACK PAIN Prescribed by: JACKY PAIGE on 01/15/23 0811 Guaifenesin/Dextromethorphan (Mucinex Dm ER 1,200-60 mg Tab) 1,200 Mg-60 Mg Tbmp.12hr, 1 EACH PO BID Prescribed by: ARAMIS DUQUE on 07/16/222043 Hydrocodone/Acetaminophen (Hydrocodone-Acetamin 5-325 mg) 5 Mg-325 Mg Tablet, 1 TAB PO Q4H PRN for PAIN-MODERATE (5-7) Prescribed by: ARAMIS DUQUE on 07/25/221946 Meclizine HCl (Meclizine HCl) 25 Mg Tablet, 25 MG PO TID PRN for DIZZINESS Prescribed by: VIPIN NASH on 05/09/22 153 Metronidazole (Metronidazole) 500 Mg Tablet, 500 MG PO TID Prescribed by: ARAMIS DUQUE on 07/25/221945 Prednisone (Prednisone) 20 Mg Tab, 40 MG PO DAILY Prescribed by: ARAMIS DUQUE on 07/25/221945 Review of Systems Constitutional: No chills, No fever Respiratory: no symptoms reported Cardiovascular: no symptoms reported Gastrointestinal: no symptoms reported Genitourinary: no symptoms reported Musculoskeletal: see HPI, back pain Skin: no symptoms reported Psychiatric/Neurological: No Symptoms Reported Past Gkypapy-Mmgezh-Rccref Hx Immunizations Up To Date Tetanus Booster (TDap): More than 5yrs First/Initial COVID19 Vaccinat: 09/13 Second COVID19 Vaccination Dominic: 09/13 Third COVID19 Vaccination Date: 09/13 Seasonal Allergies Seasonal Allergies: No Past Medical History Surgery/Hospitalization HX: C section x2, tonsils Surgeries: Yes Gallbladder Respiratory: No Cardiac: No Neurological: No Reproductive Disorders: No Female Reproductive Disorders: Ovarian Cyst Sexually Transmitted Disease: No HIV/AIDS: No Genitourinary: No Bladder Infection Gastrointestinal: Yes Gastroesophageal Reflux Musculoskeletal: No Endocrine: No HEENT: No Cancer: No Psychosocial: Yes Anxiety Integumentary: No Blood Disorders: No Adverse Reaction/Blood Tranf: No Family Medical History No Pertinent Family Hx Physical Exam Vital Signs Vital Signs - First Documented 01/15/23 08:07 Temp 36.7 Pulse 93 Resp 16 B/P (MAP) 126/72 (90) Pulse Ox 98 O2 Delivery Room Air Capillary Refill : Height, Weight, BMI Height: '" Weight: 97lbs. oz. 43.050400hp; 25.00 BMI Method:Stated General Appearance: No Apparent Distress, WD/WN Cardiovascular: Regular Rate, Rhythm, No Edema Respiratory: Lungs Clear, Normal Breath Sounds Gastrointestinal: Non Tender, Soft Back: No CVA Tenderness, No Vertebral Tenderness, Other (Mild tenderness left lower lateral back) Neurologic/Psychiatric: Alert, 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 Skin: Normal Color, Warm/Dry Progress/Results/Core Measures Results/Orders Lab Results Laboratory Tests Test 01/15/23 07:55 Range/Units Urine Color YELLOW Urine Clarity CLOUDY Urine pH 6.0 5-9 Urine Specific Coy 1.020 1.016-1.022 Urine Protein NEGATIVE NEGATIVE Urine Glucose (UA) NEGATIVE NEGATIVE Urine Ketones NEGATIVE NEGATIVE Urine Nitrite NEGATIVE NEGATIVE Urine Bilirubin NEGATIVE NEGATIVE Urine Urobilinogen 0.2 < = 1.0 MG/DL Urine Leukocyte Esterase TRACE H NEGATIVE Urine RBC (Auto) NEGATIVE NEGATIVE Urine RBC 2-5 H /HPF Urine WBC 10-25 H /HPF Urine Squamous Epithelial Cells >50 H /HPF Urine Crystals NONE /LPF Urine Bacteria LARGE H /HPF Urine Casts NONE /LPF Urine Mucus LARGE H /LPF Urine Culture Indicated NO My Orders Orders - PAIGE,JACKY L DO Ua Culture If Indicated (01/15/23 08:06) Ketorolac Injection (Toradol Injection) (01/15/23 08:06) Orphenadrine Inj (Ed Only) (Norflex Inje (01/15/23 08:06) Vital Signs/I&O 01/15/23 08:07 Temp 36.7 Pulse 93 Resp 16 B/P (MAP) 126/72 (90) Pulse Ox 98 O2 Delivery Room Air Departure Impression Primary Impression: Lumbar sprain Qualified Codes: S33.5XXA - Sprain of ligaments of lumbar spine, initial encounter Disposition: HOME, SELF-CARE Condition: Stable Departure-Patient Inst. Referrals: NO,LOCAL PHYSICIAN (PCP/Family) Primary Care Physician Patient Instructions: Back Muscle Strain, Using Cold for Pain Add. Discharge Instructions: Ice for 10 to 15 minutes at a time 3-4 times daily. Voltaren/diclofenac cream use as directed on package. 4% topical lidocaine with menthol cream gel or patch use as directed on package. Ibuprofen 600 to 800 mg every 6-8 hours as needed. All discharge instructions reviewed with patient and/or family. Voiced understanding. Scripts Cyclobenzaprine HCl (Cyclobenzaprine HCl) 5 Mg Tablet 5 MG PO BID PRN for BACK PAIN, #10 TAB Prov: JACKY PAIGE DO 01/15/23 JACKY PAIGE DO Jan 15, 2023 08:02
[2023-01-15] MEDS ORDERED: ORPHENADRINE 60 MG/2 ML (NORFLEX) AMP (ED ONLY) IM STA (08:06)
[2023-01-15] MEDS ORDERED: KETOROLAC 30 MG/ML VIAL IVP STA (08:06)
[2023-01-15 08:07] VITALS: BP 126/72
[2023-01-15 08:10] LABS: BILIRUBIN,URINE NEGATIVE (NEGATIVE); COLOR,URINE YELLOW; GLUCOSE, URINE (UA) NEGATIVE (NEGATIVE); KETONES,URINE NEGATIVE (NEGATIVE); LEUKOCYTE ESTERASE ,URINE TRACE (NEGATIVE); NITRITE,URINE NEGATIVE (NEGATIVE); PROTEIN,URINE NEGATIVE (NEGATIVE)
[2023-01-15] MEDS ORDERED: CYCL5TAB PO (08:11)
[2023-01-15 08:12] LABS: CLARITY,URINE CLOUDY
[2023-01-15 08:13] LABS: BACTERIA,URINE LARGE /HPF; SQUAMOUS EPITHELIAL CELL,UR >50 /HPF
[2023-01-15] MEDS ORDERED: IBUP-1780 PO (21:22)
== END 2023-01-15 08:23 | disposition home or self-care (01) ==
LOC: EDUNIT# 07:51 → ER FS 07:53
DX: S33.5XXA Sprain of ligaments of lumbar spine, initial encounter (principal); Z28.310 Unvaccinated for COVID-19; X58.XXXA Exposure to other specified factors, initial encounter; Y92.59 Other trade areas as the place of occurrence of the external cause; Y99.0 Civilian activity done for income or pay
CPT/HCPCS: 81000; 99284

== ENCOUNTER 2023-01-15 21:08 | Emergency (ER) | payer MEDICAID ==
[~2023-01-15] VITALS: Ht 165.1 cm; Wt 77.0 kg
[~2023-01-15 21:08] MED LIST changes: +CYCL5TAB PO
[2023-01-15 21:09] VITALS: BP 139/95
--- NOTE | 2023-01-15 21:16 | ED Back Pain ---
General Stated Complaint: LOWER BACK PAIN History of Present Illness Date Seen by Provider: Jan 15, 2023 Time Seen by Provider: 21:14 Initial Comments 32-year-old female presents with left-sided low back pain. Patient was seen by me this morning with exact same symptoms. She reports no new injury. She was prescribed Flexeril and told to take ibuprofen however she has not used any ibuprofen since she was discharged this morning at 8:00. Patient has taken Flexeril around 6 PM. She also put a lidocaine patch on the cooling unit that she reports made it "worse" Allergies and Home Medications Allergies Coded Allergies: No Known Drug Allergies (Unverified , 02/26/13) Patient Home Medication List Home Medication List Reviewed: Yes Cephalexin (Cephalexin) 500 Mg Tablet, 500 MG PO BID Prescribed by: OTILIO OCAMPO MD on 07/23/222205 Cyclobenzaprine HCl (Cyclobenzaprine HCl) 5 Mg Tablet, 5 MG PO BID PRN for BACK PAIN Prescribed by: JACKY PAIGE on 01/15/23 0811 Guaifenesin/Dextromethorphan (Mucinex Dm ER 1,200-60 mg Tab) 1,200 Mg-60 Mg Tbmp.12hr, 1 EACH PO BID Prescribed by: ARAMIS DUQUE on 07/16/222043 Hydrocodone/Acetaminophen (Hydrocodone-Acetamin 5-325 mg) 5 Mg-325 Mg Tablet, 1 TAB PO Q4H PRN for PAIN-MODERATE (5-7) Prescribed by: ARAMIS DUQUE on 07/25/221946 Meclizine HCl (Meclizine HCl) 25 Mg Tablet, 25 MG PO TID PRN for DIZZINESS Prescribed by: VIPIN NASH on 05/09/22 153 Metronidazole (Metronidazole) 500 Mg Tablet, 500 MG PO TID Prescribed by: ARAMIS DUQUE on 07/25/221945 Prednisone (Prednisone) 20 Mg Tab, 40 MG PO DAILY Prescribed by: ARAMIS DUQUE on 07/25/221945 Review of Systems Constitutional: no symptoms reported EENTM: no symptoms reported Respiratory: no symptoms reported Cardiovascular: no symptoms reported Gastrointestinal: see HPI Genitourinary: no symptoms reported; No dysuria, No frequency, No hematuria, No hesitancy Musculoskeletal: no symptoms reported Skin: no symptoms reported Psychiatric/Neurological: No Symptoms Reported Past Rmczyuv-Ixtwph-[place] Hx Immunizations Up To Date Tetanus Booster (TDap): More than 5yrs First/Initial COVID19 Vaccinat: 09/13 Second COVID19 Vaccination Dominic: 09/13 Third COVID19 Vaccination Date: 09/13 Seasonal Allergies Seasonal Allergies: No Past Medical History Surgery/Hospitalization HX: C section x2, tonsils Surgeries: Yes Gallbladder Respiratory: No Cardiac: No Neurological: No Reproductive Disorders: No Female Reproductive Disorders: Ovarian Cyst Sexually Transmitted Disease: No HIV/AIDS: No Genitourinary: No Bladder Infection Gastrointestinal: Yes Gastroesophageal Reflux Musculoskeletal: No Endocrine: No HEENT: No Cancer: No Psychosocial: Yes Anxiety Integumentary: No Blood Disorders: No Adverse Reaction/Blood Tranf: No Family Medical History No Pertinent Family Hx Physical Exam Vital Signs Capillary Refill : Height, Weight, BMI Height: '" Weight: 97lbs. oz. 43.331950is; 28.00 BMI Method:Stated General Appearance: No Apparent Distress, WD/WN Cardiovascular: Regular Rate, Rhythm, No Edema Respiratory: Lungs Clear, Normal Breath Sounds Neurologic/Psychiatric: Oriented x3, 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, Normal Mood/Affect, law reporter II-XII Norm as Tested Skin: Normal Color, Warm/Dry Progress/Results/Core Measures Results/Orders My Orders Orders - JACKY PAIGE DO Ketorolac Injection (Toradol Injection) (01/15/23 21:18) Hydrocodone/Apap 5/325 Tablet (Lortab 5 (01/15/23 21:30) Progress Progress Note : Progress Note Patient does not have any indications for imaging at this time. Patient with no neurologic deficits. Patient with likely muscle strain from overuse as diagnosis morning. Patient has not taken any further anti-inflammatories since this morning. Patient will be given a shot of Toradol, 1 hydrocodone and will need to follow-up with her primary care provider tomorrow. I once again recommended she take ibuprofen 800 mg 3 times daily Departure Impression Primary Impression: Lumbar sprain Qualified Codes: S33.5XXD - Sprain of ligaments of lumbar spine, subsequent encounter Disposition: HOME, SELF-CARE Condition: Stable Departure-Patient Inst. Referrals: NO,LOCAL PHYSICIAN (PCP/Family) Primary Care Physician Patient Instructions: Muscle Strain (DC), Low Back Pain (DC) Add. Discharge Instructions: warm moist heat 10 to 15 minutes at a time every 2-3 hrs. gentle stretching. follow up with pcp in couple days if not improving. Scripts Ibuprofen (Ibuprofen) 800 Mg Tablet 800 MG PO Q8H PRN for PAIN, #30 TAB 0 Refills Prov: JACKY PAIGE DO 01/15/23 JACKY PAIGE DO Jan 15, 2023 21:16
[2023-01-15] MEDS ORDERED: KETOROLAC 30 MG/ML VIAL IM STA (21:18)
[2023-01-15] MEDS ORDERED: IBUP-1780 PO (21:22)
[2023-01-15] MEDS ORDERED: HYDROcodone/APAP 5 MG/325 MG (LORTAB) TAB PO ONE (21:30)
== END 2023-01-15 21:40 | disposition home or self-care (01) ==
LOC: EDUNIT# 21:08 → ER FS 21:09
DX: S33.5XXA Sprain of ligaments of lumbar spine, initial encounter (principal); X58.XXXA Exposure to other specified factors, initial encounter
CPT/HCPCS: 99284

== ENCOUNTER 2023-02-17 19:29 | Emergency (ER) | payer MEDICAID ==
[~2023-02-17] VITALS: Ht 166.1 cm; Wt 81.6 kg
[2023-02-17] MEDS ORDERED: NS IV 1000 ML 1,000 ML IV STA ×2 (19:39→19:47)
[2023-02-17 19:44] LABS: BASOPHILS # (AUTO) 0.1 10^3/uL (0.0-0.1); BASOPHILS % (AUTO) 1 % (0-10); EOSINOPHILS # (AUTO) 0.3 10^3/uL (0.0-0.3); EOSINOPHILS % (AUTO) 3 % (0-10); HEMATOCRIT 42 % (35-52); HEMOGLOBIN 13.6 g/dL (11.5-16.0); LYMPHOCYTES # (AUTO) 4.6 10^3/uL (1.0-4.0); LYMPHOCYTES % (AUTO) 45 % (12-44); MEAN CORPUSCULAR HEMOGLOBIN 31 pg (25-34); MEAN CORPUSCULAR HGB CONC 33 g/dL (32-36); MEAN CORPUSCULAR VOLUME 95 fL (80-99); MEAN PLATELET VOLUME 10.8 fL (9.0-12.2); MONOCYTES # (AUTO) 0.7 10^3/uL (0.0-1.0); MONOCYTES % (AUTO) 7 % (0-12); NEUTROPHILS # (AUTO) 4.4 10^3/uL (1.8-7.8); NEUTROPHILS % (AUTO) 44 % (42-75); PLATELET COUNT 274 10^3/uL (130-400)
[2023-02-17] MEDS ORDERED: ONDANSETRON 4 MG/2 ML (SDV) Z0FRAN IVP STA (19:47)
--- NOTE | 2023-02-17 19:54 | ED Syncope ---
General Chief Complaint: Dizziness/Syncope Stated Complaint: HEAT EXHAUSTION,SYNCOPE Nursing Triage Note: Patient was brought in via EMS for a syncopal episode. 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 She went outside to try and cool off and passed out sitting in her car. The car was not running at the time. EMS started an 18g in the left AC. Patient has NS going upon arrival. Patient is alert, oriented and able to answer questions. Patients body temperature is normal. Source of Information: Patient, EMS History of Present Illness Date Seen by Provider: Feb 17, 2023 Time Seen by Provider: 19:34 Initial Comments 32-year-old female presenting with EMS from home after having a syncopal episode. She states that she felt like she had gotten too hot throughout the day. 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 She is currently on her menstrual period. She is still feelilng light headed now and has some nausea. She reports having 1 episode of emesis a little after 6 PM. She had to leave work early tonight because of feeling overheated and getting dizzy and lightheaded. She denies having fever or chills. She has no pain with urination. She denies having any diarrhea. She denies chest pain. Timing/Prior Episodes: No Prior History Symptoms Prior to Episode: Lightheadedness Precipitating Factors: Activity (working in a house that is hot) Loss of Consciousness: Brief (Seconds) Current Symptoms: No Blurred Vision, No Chest Pain, No Diaphoresis; Dizziness; No Headache, No Injury; Lightheadedness; No Loss of Bladder Control, No Loss of Bowel Control, No Motionless; Nausea; No Pale, No Shallow/Rapid Breathing, No Weak/Absent Pulse; Weakness Allergies and Home Medications Allergies Coded Allergies: No Known Drug Allergies (Unverified , 02/26/13) Patient Home Medication List Home Medication List Reviewed: Yes Cephalexin (Cephalexin) 500 Mg Tablet, 500 MG PO BID Prescribed by: OTILIO OCAMPO MD on 07/23/22 2206 Cyclobenzaprine HCl (Cyclobenzaprine HCl) 5 Mg Tablet, 5 MG PO BID PRN for BACK PAIN Prescribed by: JACKY PAIGE on 01/15/23 0811 Guaifenesin/Dextromethorphan (Mucinex Dm ER 1,200-60 mg Tab) 1,200 Mg-60 Mg Tbmp.12hr, 1 EACH PO BID Prescribed by: ARAMIS DUQUE on 07/16/222043 Hydrocodone/Acetaminophen (Hydrocodone-Acetamin 5-325 mg) 5 Mg-325 Mg Tablet, 1 TAB PO Q4H PRN for PAIN-MODERATE (5-7) Prescribed by: ARAMIS DUQUE on 07/25/221946 Ibuprofen (Ibuprofen) 800 Mg Tablet, 800 MG PO Q8H PRN for PAIN Prescribed by: JACKY PAIGE on 01/15/232121 Meclizine HCl (Meclizine HCl) 25 Mg Tablet, 25 MG PO TID PRN for DIZZINESS Prescribed by: VIPIN NASH on 05/09/22 153 Metronidazole (Metronidazole) 500 Mg Tablet, 500 MG PO TID Prescribed by: ARAMIS DUQUE on 07/25/221945 Prednisone (Prednisone) 20 Mg Tab, 40 MG PO DAILY Prescribed by: ARAMIS DUQUE on 07/25/221945 Review of Systems Constitutional: No chills; dizziness; No fever EENTM: no symptoms reported Respiratory: no symptoms reported Cardiovascular: syncope Gastrointestinal: nausea, vomiting (x1) Genitourinary: No dysuria LMP: Feb 16, 2023 Musculoskeletal: no symptoms reported Skin: No rash Psychiatric/Neurological: See HPI; Denies Headache Past Tlgjlew-Ezsxbe-Cpjjyq Hx Patient Social History Tobacco Use?: Yes Tobacco type used: Cigarettes Smoking Status: Current Everyday Smoker Substance use?: No Alcohol Use?: No Pt feels they are or have been: No Immunizations Up To Date Tetanus Booster (TDap): More than 5yrs First/Initial COVID19 Vaccinat: 09/13 Second COVID19 Vaccination Dominic: 09/13 Third COVID19 Vaccination Date: 09/13 Seasonal Allergies Seasonal Allergies: No Past Medical History Surgery/Hospitalization HX: C section x2, tonsils Surgeries: Yes Gallbladder Respiratory: No Cardiac: No Neurological: No Reproductive Disorders: No Female Reproductive Disorders: Ovarian Cyst Sexually Transmitted Disease: No HIV/AIDS: No Genitourinary: No Bladder Infection Gastrointestinal: Yes Gastroesophageal Reflux Musculoskeletal: No Endocrine: No HEENT: No Cancer: No Psychosocial: Yes Anxiety Integumentary: No Blood Disorders: No Adverse Reaction/Blood Tranf: No Family Medical History No Pertinent Family Hx Physical Exam Vital Signs Vital Signs - First Documented 02/17/23 19:30 Temp 37.1 Pulse 88 Resp 16 B/P (MAP) 126/84 (98) Pulse Ox 96 O2 Delivery Room Air Capillary Refill : Less Than 3 Seconds Height, Weight, BMI Height: '" Weight: 97lbs. oz. [id number]; 29.00 BMI Method:Stated General Appearance: WD/WN, Mild Distress (appears to not feel well) HEENT: PERRL/EOMI, Pharynx Normal; No Moist Mucous Membranes (slightly dry mucous membranes) Neck: Full Range of Motion, Normal Inspection, Non Tender, Supple Cardiovascular: Regular Rate, Rhythm, Normal Peripheral Pulses Respiratory: Chest Non Tender, Lungs Clear, Normal Breath Sounds, No Accessory Muscle Use, No Respiratory Distress Gastrointestinal: Normal Bowel Sounds, No Pulsatile Mass, Non Tender, Soft Extremities: Normal Capillary Refill, Normal Inspection, No Pedal Edema Neurologic/Psychiatric: Alert, Oriented x3, 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, 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 Cranial Nerves: Normal Hearing, Normal Speech, PERRL Coordination/Gait: Normal Gait Motor/Sensory: No Motor Deficit, No Sensory Deficit, No Pronator Drift Skin: Normal Color, Warm/Dry Progress/Results/Core Measures Results/Orders Lab Results Laboratory Tests Test 02/17/23 19:35 02/17/23 20:03 Range/Units White Blood Count 10.0 4.3-11.0 10^3/uL Red Blood Count 4.38 3.80-5.11 10^6/uL Hemoglobin 13.6 11.5-16.0 g/dL Hematocrit 42 35-52 % Mean Corpuscular Volume 95 80-99 fL Mean Corpuscular Hemoglobin 31 25-34 pg Mean Corpuscular Hemoglobin Concent 33 32-36 g/dL Red Cell Distribution Width 13.3 10.0-14.5 % Platelet Count 274 130-400 10^3/uL Mean Platelet Volume 10.8 9.0-12.2 fL Immature Granulocyte % (Auto) 0 % Neutrophils (%) (Auto) 44 42-75 % Lymphocytes (%) (Auto) 45 H 12-44 % Monocytes (%) (Auto) 7 0-12 % Eosinophils (%) (Auto) 3 0-10 % Basophils (%) (Auto) 1 0-10 % Neutrophils # (Auto) 4.4 1.8-7.8 10^3/uL Lymphocytes # (Auto) 4.6 H 1.0-4.0 10^3/uL Monocytes # (Auto) 0.7 0.0-1.0 10^3/uL Eosinophils # (Auto) 0.3 0.0-0.3 10^3/uL Basophils # (Auto) 0.1 0.0-0.1 10^3/uL Immature Granulocyte # (Auto) 0.0 0.0-0.1 10^3/uL Sodium Level 137 135-145 MMOL/L Potassium Level 4.0 3.6-5.0 MMOL/L Chloride Level 104 98-107 MMOL/L Carbon Dioxide Level 20 L 21-32 MMOL/L Anion Gap 13 5-14 MMOL/L Blood Urea Nitrogen 6 L 7-18 MG/DL Creatinine 0.85 0.60-1.30 MG/DL Estimat Glomerular Filtration Rate 94 BUN/Creatinine Ratio 7 Glucose Level 112 H 70-105 MG/DL Calcium Level 8.6 8.5-10.1 MG/DL Corrected Calcium 8.8 8.5-10.1 MG/DL Total Bilirubin < 0.2 0.1-1.0 MG/DL Aspartate Amino Transf (AST/SGOT) 23 5-34 U/L Alanine Aminotransferase (ALT/SGPT) 19 0-55 U/L Alkaline Phosphatase 109 40-136 U/L Total Protein 6.8 6.4-8.2 GM/DL Albumin 3.8 3.2-4.5 GM/DL Serum Test, Qualitative NEGATIVE NEGATIVE Urine Color YELLOW Urine Clarity CLEAR Urine pH 6.0 5-9 Urine Specific [place] 1.015 L 1.016-1.022 Urine Protein NEGATIVE NEGATIVE Urine Glucose (UA) NEGATIVE NEGATIVE Urine Ketones NEGATIVE NEGATIVE Urine Nitrite NEGATIVE NEGATIVE Urine Bilirubin NEGATIVE NEGATIVE Urine Urobilinogen 0.2 < = 1.0 MG/DL Urine Leukocyte Esterase NEGATIVE NEGATIVE Urine RBC (Auto) 1+ H NEGATIVE Urine RBC 2-5 H /HPF Urine WBC 10-25 H /HPF Urine Squamous Epithelial Cells 25-50 H /HPF Urine Crystals NONE /LPF Urine Bacteria FEW H /HPF Urine Casts PRESENT /LPF Urine Hyaline Casts 0-2 H /LPF Urine Mucus MODERATE H /LPF Urine Culture Indicated NO My Orders Orders - VIPIN NASH MD Comprehensive Metabolic Panel (02/17/23 19:39) Ua Culture If Indicated (02/17/23 19:39) Ed Iv/Invasive Line Start (02/17/23 19:39) Cbc With Automated Diff (02/17/23 19:39) Hcg,Qualitative Serum (02/17/23 19:39) Ns Iv 1000 Ml (Sodium Chloride 0.9%) (02/17/23 19:39) Ondansetron Injection (Zofran Injectio (02/17/23 19:47) Ns Iv 1000 Ml (Sodium Chloride 0.9%) (02/17/23 19:47) Ekg Tracing (02/17/23 19:47) Orthostatic Vital Signs (Adult (02/17/23 20:13) Vital Signs/I&O 02/17/23 02/17/23 02/17/23 19:30 20:38 20:39 Temp 37.1 Pulse 88 82 86 93 91 Resp 16 18 B/P (MAP) 126/84 (98) 116/74 (88) 122/72 119/74 (89) 124/74 (91) Pulse Ox 96 98 O2 Delivery Room Air Room Air Blood Pressure Mean: 98 Progress Progress Note #1: Progress Note Potential diagnosis of heat exhaustion, dehydration, anemia, vasovagal syncope. EMS established peripheral IV and normal saline was infusing. We will draw labs to check complete blood count, comprehensive metabolic profile, serum hCG, urinalysis. Administer 2 L of normal saline IV fluid bolus to help with hydration. She reports still feeling nauseated so give Zofran 4 mg IV to help with settling her stomach. Encouraged to drink extra fluids. Progress Note #2: Time: 20:08 Progress Note Complete blood count shows normal white blood cell count of 10 and hemoglobin 13.6. Comprehensive metabolic panel does not show any acute electrolyte abnormalities to indicate severe dehydration. Electrocardiogram shows sinus rhythm with a heart rate in the 80s without ST elevation or ischemia. Patient is receiving fluids through the IV and during to drink oral fluids to be able to provide a urine specimen to check her hydration. Blood pressure continues to look good at 129/80. Progress Note #3: Progress Note Urinalysis was not showing infection but was slightly concentrated. Encourage fl uids and trying to avoid heat. Given note for leaving work early today and to stay home tomorrow. Return Monday but stay hydrated and avoid excessive heat. Initial ECG Impression Date: Feb 17, 2023 Initial ECG Impression Time: 19:42 Initial ECG Rate: 86 Initial ECG Rhythm: Normal Sinus Initial ECG Comparisson: Unchanged (11 May 2022) Comment On my personal interpretation and review her electrocardiogram shows sinus rhythm with a heart rate of [address] elevation. WI interval 145 ms. QT interval 358 ms with a QTc interval 401 ms. Overall appears similar to prior tracing from May 11, 2022. Departure Impression Primary Impression: Vasovagal syncope Additional Impressions: Dehydration Heat exhaustion Qualified Codes: T67.5XXA - Heat exhaustion, unspecified, initial encounter Disposition: HOME, SELF-CARE Condition: Improved Departure-Patient Inst. Decision time for Depature: 20:23 Referrals: NO,LOCAL PHYSICIAN (PCP) Primary Care Physician [facility] Patient Instructions: Heat Illness ED, Fainting, Adult ED, Dehydration, Adult ED Add. Discharge Instructions: Try to keep sipping on fluids and stay well-hydrated. Water and electrolyte drinks well-hydrated better than Dr. Salinas or rut. Try to rest in air conditioning and avoid heat for next 24 hours. Try to stay hydrated and avoid heat while at work when you go back on Monday. Check back with clinic by calling [facility] [phone] to get established and follow up if having continued concerns/problems. All discharge instructions reviewed with patient and/or family. Voiced understanding. Work/School Note: Work Release Form Date Seen in the Emergency Department: Feb 17, 2023 Return to Work: Feb 19, 2023 Other Restrictions Listed Below: Try to stay cool and avoid excessive heat. Stay well hydrated VIPIN NASH MD Feb 17, 2023 19:53
[2023-02-17 20:01] LABS: ALANINE AMINOTRANSFERASE 19 U/L (0-55); ALKALINE PHOSPHATASE 109 U/L (40-136); BILIRUBIN,TOTAL < 0.2 MG/DL (0.1-1.0); BUN/CREATININE RATIO 7; CALCIUM 8.6 MG/DL (8.5-10.1); CARBON DIOXIDE 20 MMOL/L (21-32); CHLORIDE 104 MMOL/L (98-107); CREATININE SERUM 0.85 MG/DL (0.60-1.30); GFR ESTIMATED 94; GLUCOSE 112 MG/DL (70-105); SODIUM 137 MMOL/L (135-145); TOTAL PROTEIN 6.8 GM/DL (6.4-8.2)
[2023-02-17 20:02] LABS: ALBUMIN 3.8 GM/DL (3.2-4.5)
[2023-02-17 20:10] LABS: BILIRUBIN,URINE NEGATIVE (NEGATIVE); CLARITY,URINE CLEAR; COLOR,URINE YELLOW; GLUCOSE, URINE (UA) NEGATIVE (NEGATIVE); KETONES,URINE NEGATIVE (NEGATIVE); LEUKOCYTE ESTERASE ,URINE NEGATIVE (NEGATIVE); NITRITE,URINE NEGATIVE (NEGATIVE); PROTEIN,URINE NEGATIVE (NEGATIVE)
[2023-02-17 20:15] LABS: BACTERIA,URINE FEW /HPF; SQUAMOUS EPITHELIAL CELL,UR 25-50 /HPF
[2023-02-17 20:16] LABS: HYALINE CASTS, URINE 0-2 /LPF
[2023-02-17 20:38] VITALS: BP_SYST 116; BP_SYST 119; BP_SYST 124; BP_DIAS 74
[2023-02-17 20:39] VITALS: BP 122/72
== END 2023-02-17 20:40 | disposition home or self-care (01) ==
LOC: EDUNIT# 19:29 → ER FS 19:31
DX: T67.5XXA Heat exhaustion, unspecified, initial encounter (principal); R55 Syncope and collapse; E86.0 Dehydration; R11.2 Nausea with vomiting, unspecified; F17.210 Nicotine dependence, cigarettes, uncomplicated; Z28.310 Unvaccinated for COVID-19
CPT/HCPCS: 36415; 80053; 81000; 84703; 85025; 93005

== ENCOUNTER 2023-02-20 20:30 | Emergency (ER) | payer MEDICAID ==
[2023-02-20 20:45] LABS: BILIRUBIN,URINE NEGATIVE (NEGATIVE); CLARITY,URINE CLEAR; COLOR,URINE YELLOW; GLUCOSE, URINE (UA) NEGATIVE (NEGATIVE); KETONES,URINE NEGATIVE (NEGATIVE); LEUKOCYTE ESTERASE ,URINE NEGATIVE (NEGATIVE); NITRITE,URINE NEGATIVE (NEGATIVE); PROTEIN,URINE NEGATIVE (NEGATIVE)
[2023-02-20] MEDS ORDERED: DroPERidol INJECTION 5 MG/2 ML (ED ONLY!) IV ONE (20:45)
[2023-02-20] MEDS ORDERED: NS IV 1000 ML 1,000 ML IV STA (20:45)
[2023-02-20 20:49] LABS: BACTERIA,URINE FEW /HPF
[2023-02-20 20:54] LABS: BASOPHILS # (AUTO) 0.1 10^3/uL (0.0-0.1); BASOPHILS % (AUTO) 1 % (0-10); EOSINOPHILS # (AUTO) 0.3 10^3/uL (0.0-0.3); EOSINOPHILS % (AUTO) 3 % (0-10); HEMATOCRIT 42 % (35-52); HEMOGLOBIN 14.2 g/dL (11.5-16.0); LYMPHOCYTES # (AUTO) 4.6 10^3/uL (1.0-4.0); LYMPHOCYTES % (AUTO) 46 % (12-44); MEAN CORPUSCULAR HEMOGLOBIN 31 pg (25-34); MEAN CORPUSCULAR HGB CONC 34 g/dL (32-36); MEAN CORPUSCULAR VOLUME 92 fL (80-99); MEAN PLATELET VOLUME 10.7 fL (9.0-12.2); MONOCYTES # (AUTO) 0.7 10^3/uL (0.0-1.0); MONOCYTES % (AUTO) 7 % (0-12); NEUTROPHILS # (AUTO) 4.2 10^3/uL (1.8-7.8); NEUTROPHILS % (AUTO) 42 % (42-75); PLATELET COUNT 317 10^3/uL (130-400); WHITE BLOOD COUNT 9.9 10^3/uL (4.3-11.0)
--- NOTE | 2023-02-20 20:57 | ED Abdominal Pain ---
General Chief Complaint: Abdominal/GI Problems Stated Complaint: N/V/D Nursing Triage Note: Pt complaining of abdominal pain and nausea. Pt states she was seen in ED on Monday for the same symptoms and isn't feel any better Source of Information: Patient, Old Records Exam Limitations: No Limitations History of Present Illness Date Seen by Provider: Feb 20, 2023 Time Seen by Provider: 20:33 Initial Comments 32-year-old female with no pertinent past medical history coming in due to abdominal cramping, diarrhea that is nonbloody, nonbloody and nonbilious emesis. This has been going on since Monday in which she presented to this emergency department. Received some IV fluids and nausea medications. She states she is not really feeling better, although it is no longer treating vomiting. She is keeping all of her food and liquids down. She states she just feels generally weak from the diarrhea. She is otherwise denying any fever, severe abdominal pain, vaginal discharge, dysuria, or any other concerns. LMP was last week. Allergies and Home Medications Allergies Coded Allergies: No Known Drug Allergies (Unverified , 02/26/13) Patient Home Medication List Home Medication List Reviewed: Yes Cephalexin (Cephalexin) 500 Mg Tablet, 500 MG PO BID Prescribed by: OTILIO OCAMPO MD on 07/23/222205 Cyclobenzaprine HCl (Cyclobenzaprine HCl) 5 Mg Tablet, 5 MG PO BID PRN for BACK PAIN Prescribed by: JACKY PAIGE on 01/15/23 0811 Guaifenesin/Dextromethorphan (Mucinex Dm ER 1,200-60 mg Tab) 1,200 Mg-60 Mg Tbmp.12hr, 1 EACH PO BID Prescribed by: ARAMIS DUQUE on 07/16/222043 Hydrocodone/Acetaminophen (Hydrocodone-Acetamin 5-325 mg) 5 Mg-325 Mg Tablet, 1 TAB PO Q4H PRN for PAIN-MODERATE (5-7) Prescribed by: ARAMIS DUQUE on 07/25/221946 Ibuprofen (Ibuprofen) 800 Mg Tablet, 800 MG PO Q8H PRN for PAIN Prescribed by: JACKY PAIGE on 01/15/232121 Meclizine HCl (Meclizine HCl) 25 Mg Tablet, 25 MG PO TID PRN for DIZZINESS Prescribed by: VIPIN NASH on 05/09/22 1530 Metronidazole (Metronidazole) 500 Mg Tablet, 500 MG PO TID Prescribed by: ARAMIS DUQUE on 07/25/221945 Prednisone (Prednisone) 20 Mg Tab, 40 MG PO DAILY Prescribed by: ARAMIS DUQUE on 07/25/221945 Review of Systems Review of Systems Constitutional: No fever EENTM: No Symptoms Reported Respiratory: No Symptoms Reported Cardiovascular: No Symptoms Reported Gastrointestinal: See HPI Genitourinary: No Symptoms Reported Musculoskeletal: no symptoms reported Skin: no symptoms reported Psychiatric/Neurological: No Symptoms Reported Endocrine: No Symptoms Reported Past Qqebzsy-Ymimzz-Aofctx Hx Patient Social History Tobacco Use?: No Use of E-Cig and/or Vaping dev: No Substance use?: No Alcohol Use?: No Pt feels they are or have been: No Immunizations Up To Date Tetanus Booster (TDap): More than 5yrs First/Initial COVID19 Vaccinat: 09/13 Second COVID19 Vaccination Dominic: 09/13 Third COVID19 Vaccination Date: 09/13 Seasonal Allergies Seasonal Allergies: No Past Medical History Surgery/Hospitalization HX: C section x2, tonsils Surgeries: Yes Gallbladder Respiratory: No Cardiac: No Neurological: No Reproductive Disorders: No Female Reproductive Disorders: Ovarian Cyst Sexually Transmitted Disease: No HIV/AIDS: No Genitourinary: No Bladder Infection Gastrointestinal: Yes Gastroesophageal Reflux Musculoskeletal: No Endocrine: No HEENT: No Cancer: No Psychosocial: Yes Anxiety Integumentary: No Blood Disorders: No Adverse Reaction/Blood Tranf: No Family Medical History No Pertinent Family Hx Physical Exam Vital Signs Vital Signs - First Documented 02/20/23 20:35 Temp 36.5 Pulse 94 Resp 18 B/P (MAP) 131/87 (102) Pulse Ox 98 O2 Delivery Room Air Capillary Refill : Less Than 3 Seconds Height/Weight/BMI Height: '" Weight: 97lbs. oz. 43.613686vt; 29.00 BMI Method:Stated General Appearance: WD/WN, no apparent distress HEENT: PERRL/EOMI, normal ENT inspection, pharynx normal Neck: non-tender, full range of motion, normal inspection Respiratory: chest non-tender, lungs clear, normal breath sounds, no respiratory distress, no accessory muscle use Cardiovascular: regular rate, rhythm, no edema, no murmur Gastrointestinal: normal bowel sounds, non tender, soft; No distended, No guarding, No rebound Extremities: normal range of motion, non-tender, normal inspection, no pedal edema, no calf tenderness, normal capillary refill Back: normal inspection, no CVA tenderness Neurologic/Psychiatric: no motor/sensory deficits, alert, normal mood/affect Skin: normal color, warm/dry Progress/Results/Core Measures Results/Orders Lab Results Laboratory Tests Test 02/20/23 20:45 02/20/23 20:50 Range/Units Urine Color YELLOW Urine Clarity CLEAR Urine pH 6.0 5-9 Urine Specific [place] 1.020 1.016-1.022 Urine Protein NEGATIVE NEGATIVE Urine Glucose (UA) NEGATIVE NEGATIVE Urine Ketones NEGATIVE NEGATIVE Urine Nitrite NEGATIVE NEGATIVE Urine Bilirubin NEGATIVE NEGATIVE Urine Urobilinogen 0.2 < = 1.0 MG/DL Urine Leukocyte Esterase NEGATIVE NEGATIVE Urine RBC (Auto) NEGATIVE NEGATIVE Urine RBC NONE /HPF Urine WBC NONE /HPF Urine Squamous Epithelial Cells 5-10 /HPF Urine Crystals NONE /LPF Urine Bacteria FEW H /HPF Urine Casts NONE /LPF Urine Mucus SMALL H /LPF Urine Culture Indicated NO White Blood Count 9.9 4.3-11.0 10^3/uL Red Blood Count 4.56 3.80-5.11 10^6/uL Hemoglobin 14.2 11.5-16.0 g/dL Hematocrit 42 35-52 % Mean Corpuscular Volume 92 80-99 fL Mean Corpuscular Hemoglobin 31 25-34 pg Mean Corpuscular Hemoglobin Concent 34 32-36 g/dL Red Cell Distribution Width 13.2 10.0-14.5 % Platelet Count 317 130-400 10^3/uL Mean Platelet Volume 10.7 9.0-12.2 fL Immature Granulocyte % (Auto) 0 % Neutrophils (%) (Auto) 42 42-75 % Lymphocytes (%) (Auto) 46 H 12-44 % Monocytes (%) (Auto) 7 0-12 % Eosinophils (%) (Auto) 3 0-10 % Basophils (%) (Auto) 1 0-10 % Neutrophils # (Auto) 4.2 1.8-7.8 10^3/uL Lymphocytes # (Auto) 4.6 H 1.0-4.0 10^3/uL Monocytes # (Auto) 0.7 0.0-1.0 10^3/uL Eosinophils # (Auto) 0.3 0.0-0.3 10^3/uL Basophils # (Auto) 0.1 0.0-0.1 10^3/uL Immature Granulocyte # (Auto) 0.0 0.0-0.1 10^3/uL Sodium Level 142 135-145 MMOL/L Potassium Level 3.6 3.6-5.0 MMOL/L Chloride Level 107 98-107 MMOL/L Carbon Dioxide Level 22 21-32 MMOL/L Anion Gap 13 5-14 MMOL/L Blood Urea Nitrogen 7 7-18 MG/DL Creatinine 0.85 0.60-1.30 MG/DL Estimat Glomerular Filtration Rate 94 BUN/Creatinine Ratio 8 Glucose Level 97 70-105 MG/DL Calcium Level 9.1 8.5-10.1 MG/DL Corrected Calcium 9.3 8.5-10.1 MG/DL Total Bilirubin < 0.2 0.1-1.0 MG/DL Aspartate Amino Transf (AST/SGOT) 23 5-34 U/L Alanine Aminotransferase (ALT/SGPT) 23 0-55 U/L Alkaline Phosphatase 115 40-136 U/L C-Reactive Protein < 0.30 <0.50 MG/DL Total Protein 6.7 6.4-8.2 GM/DL Albumin 3.8 3.2-4.5 GM/DL Lipase 21 8-78 U/L Smear Scan YES My Orders Orders - YOLY ALLEN MD Urine Bedside (02/20/23 20:38) Ua Culture If Indicated (02/20/23 20:38) Cbc With Automated Diff (02/20/23 20:45) Comprehensive Metabolic Panel (02/20/23 20:45) Lipase (02/20/23 20:45) Crp Fs (02/20/23 20:45) Droperidol Inj (Ed Only) (Inapsine Inj ( (02/20/23 20:45) Ns Iv 1000 Ml (Sodium Chloride 0.9%) (02/20/23 20:45) Medications Given in ED Current Medications Medications Dose Ordered Sig/Ginette Route Start Time Stop Time Status Last Admin Dose Admin Droperidol 2.5 mg ONCE ONCE IV 02/20/23 20:45 02/20/23 20:47 DC 02/20/23 20:53 2.5 MG Vital Signs/I&O 02/20/23 20:35 Temp 36.5 Pulse 94 Resp 18 B/P (MAP) 131/87 (102) Pulse Ox 98 O2 Delivery Room Air Blood Pressure Mean: 102 Progress Progress Note : Progress Note 32-year-old female presenting for nausea, diarrhea, and abdominal cramping. ABCs were intact and vitals were stable on presentation. Physical exam with a soft and nontender abdomen. I reviewed the chart, and she was seen around July and diagnosed with undifferentiated colitis. Sent home with antibiotics and steroids. She went to a different facility later and was admitted for couple of days for IV fluids. She has not had a colonoscopy. She is keeping fluids down and is nontoxic-appearing today. An IV was placed and we will repeat labs including inflammatory markers. Labs significant for normal white blood cell count, normal creatinine, negative CRP which is reassuring. I reviewed the chart, and when she had a colitis episode, her white blood cell count was elevated, and her CRP was fairly elevated. Repeat abdominal exam once again reassuring, soft, nontender. Highly unlikely she has colitis at this time. Likely just viral gastroenteritis. I believe she is otherwise stable for discharge with outpatient follow-up. Prescription nausea medicines will be sent to her pharmacy. She was sent home with strict return precautions Departure Impression Primary Impression: Vomiting and diarrhea Disposition: HOME, SELF-CARE Condition: Stable Departure-Patient Inst. Decision time for Depature: 21:35 Referrals: NO,LOCAL PHYSICIAN (PCP/Family) Primary Care Physician Patient Instructions: Diarrhea, Adult ED, Nausea and Vomiting, Adult ED Add. Discharge Instructions: Fortunately your labs are normal today, and we will review them when you had colitis, they were very elevated. This is reassuring that this is not a repeat episode of colitis. This is likely just a regular infection with diarrhea and nausea. You can take xghg-pmy-xzuhxie diarrhea medicines if you would like. Nausea medicines were also sent to your pharmacy. Scripts Promethazine HCl (Promethazine Tablet) 25 Mg Tablet 25 MG PO Q8H PRN for NAUSEA/VOMITING-2ND LINE for 5 Days, #15 TAB 0 Refills Prov: YOLY ALLEN MD 02/20/23 Ondansetron (Ondansetron Odt) 4 Mg Tab.rapdis 4 MG SL Q6H PRN for NAUSEA/VOMITING for 5 Days, #20 TAB Prov: YOLY ALLEN MD 02/20/23 Work/School Note: Work Release Form Date Seen in the Emergency Department: Feb 20, 2023 Return to Work: Feb 22, 2023 Restrictions: Return-No Vomiting(24hrs) YOLY ALLEN MD Feb 20, 2023 20:57
[2023-02-20 21:15] LABS: SMEAR SCAN COMMENT YES
[2023-02-20 21:16] LABS: BILIRUBIN,TOTAL < 0.2 MG/DL (0.1-1.0); BUN/CREATININE RATIO 8; CALCIUM 9.1 MG/DL (8.5-10.1); CARBON DIOXIDE 22 MMOL/L (21-32); CHLORIDE 107 MMOL/L (98-107); CREATININE SERUM 0.85 MG/DL (0.60-1.30); GFR ESTIMATED 94; GLUCOSE 97 MG/DL (70-105); POTASSIUM 3.6 MMOL/L (3.6-5.0); SODIUM 142 MMOL/L (135-145)
[2023-02-20 21:17] LABS: ALANINE AMINOTRANSFERASE 23 U/L (0-55); ALBUMIN 3.8 GM/DL (3.2-4.5); ALKALINE PHOSPHATASE 115 U/L (40-136); LIPASE 21 U/L (8-78); TOTAL PROTEIN 6.7 GM/DL (6.4-8.2)
[2023-02-20] MEDS ORDERED: PROM25TA14 PO (21:22)
[2023-02-20] MEDS ORDERED: ONDA4TAB11 SL (21:22)
[2023-02-20 21:24] VITALS: BP 131/87
[2023-02-21] MEDS ORDERED: MELO7.5T46 PO (23:54)
[2023-02-21] MEDS ORDERED: CYCL5TAB PO (23:54)
== END 2023-02-20 21:25 | disposition home or self-care (01) ==
LOC: EDUNIT# 20:30 → ER FS 20:32
DX: R11.2 Nausea with vomiting, unspecified (principal); R19.7 Diarrhea, unspecified; R79.82 Elevated C-reactive protein (CRP); Z28.310 Unvaccinated for COVID-19
CPT/HCPCS: 36415; 80053; 81000; 83690; 84703; 85025; 86141; 99282

== ENCOUNTER 2023-02-21 23:19 | Emergency (ER) | payer MEDICAID ==
[~2023-02-21] VITALS: Ht 170.1 cm; Wt 81.6 kg
[~2023-02-21 23:19] MED LIST changes: +ONDA4TAB11 SL; +PROM25TA14 PO
[2023-02-21 23:28] VITALS: BP 137/102
[2023-02-21] MEDS ORDERED: KETOROLAC 60 MG/2 ML VIAL IM STA (23:42)
[2023-02-21] MEDS ORDERED: ORPHENADRINE 60 MG/2 ML (NORFLEX) AMP (ED ONLY) IM STA (23:42)
--- NOTE | 2023-02-21 23:49 | ED Back Pain ---
General Chief Complaint: Back Problems Stated Complaint: SEVERE BACK PAIN Source of Information: Patient, Old Records History of Present Illness Date Seen by Provider: Feb 21, 2023 Time Seen by Provider: 23:23 Initial Comments 32-year-old female with presenting with complaints of acute exacerbation of low back pain. She states that about a month ago she had a back injury that was work comp related for [employer]. She had followed up about that and had to wear a brace for 1 to 2 weeks. She was feeling better after that and was released back to normal duty. In the last few days she has had heat exhaustion and some abdominal pain with nausea and vomiting. She states that this morning she woke up and her blood pressure was 160/102. She has had back pain throughout the day but had to work [employer]. She states that the back pain was so severe tonight that she could not get to sleep. She had tried taking Tylenol without any improvement. She denies any new injury or reason for the pain to be worse today. She denies any pain or burning with urination. She had extensive lab work done less than 24 hours ago. Those tests had all looked normal. She also had testing done on February 17 and it also had looked okay. Location: Lumbar Spine Timing/Duration: 12-24 Hours Severity: Severe Pain/Injury Location: Back Method of Injury: Unknown Modifying Factors: Worse With Movement Associated Symptoms: muscle spasms; No fever, No weakness, No numbness in legs/feet, No tingling in legs/feet, No sensory/motor loss; lower back pain; No loss of bladder control, No loss of bowel control Allergies and Home Medications Allergies Coded Allergies: No Known Drug Allergies (Unverified , 02/26/13) Patient Home Medication List Home Medication List Reviewed: Yes Cephalexin (Cephalexin) 500 Mg Tablet, 500 MG PO BID Prescribed by: OTILIO OCAMPO MD on 07/23/22 2206 Cyclobenzaprine HCl (Cyclobenzaprine HCl) 5 Mg Tablet, 5 MG PO BID PRN for BACK PAIN Prescribed by: JACKY PAIGE on 01/15/23 0811 Cyclobenzaprine HCl (Cyclobenzaprine HCl) 5 Mg Tablet, 5 MG PO TID PRN for musc le spasm/back pain Prescribed by: VIPIN NASH on 02/21/23 2351 Guaifenesin/Dextromethorphan (Mucinex Dm ER 1,200-60 mg Tab) 1,200 Mg-60 Mg Tbmp.12hr, 1 EACH PO BID Prescribed by: ARAMIS DUQUE on 07/16/222043 Hydrocodone/Acetaminophen (Hydrocodone-Acetamin 5-325 mg) 5 Mg-325 Mg Tablet, 1 TAB PO Q4H PRN for PAIN-MODERATE (5-7) Prescribed by: ARAMIS DUQUE on 07/25/221946 Ibuprofen (Ibuprofen) 800 Mg Tablet, 800 MG PO Q8H PRN for PAIN Prescribed by: JACKY PAIGE on 01/15/232121 Meclizine HCl (Meclizine HCl) 25 Mg Tablet, 25 MG PO TID PRN for DIZZINESS Prescribed by: VIPIN NASH on 05/09/22 153 Meloxicam (Meloxicam) 7.5 Mg Tablet, 7.5 MG PO DAILY Prescribed by: VIPIN NASH on 02/21/23 235 Metronidazole (Metronidazole) 500 Mg Tablet, 500 MG PO TID Prescribed by: ARAMIS DUQUE on 07/25/221945 Ondansetron (Ondansetron Odt) 4 Mg Tab.rapdis, 4 MG SL Q6H PRN for NAUSEA/VOMITING Prescribed by: YOLY ALLEN on 02/20/232121 Prednisone (Prednisone) 20 Mg Tab, 40 MG PO DAILY Prescribed by: ARAMIS DUQUE on 07/25/221945 Promethazine HCl (Promethazine Tablet) 25 Mg Tablet, 25 MG PO Q8H PRN for NAUSE A/VOMITING-2ND LINE Prescribed by: YOLY ALLEN on 02/20/232121 Review of Systems Constitutional: No chills, No fever EENTM: no symptoms reported Respiratory: no symptoms reported Cardiovascular: no symptoms reported Gastrointestinal: see HPI Genitourinary: No dysuria Musculoskeletal: back pain Skin: no symptoms reported Psychiatric/Neurological: Denies Anxiety, Denies Numbness, Denies Paresthesia, Denies Weakness Past Ejxjgul-Erxdil-Unrcvx Hx Patient Social History Tobacco Use?: No Substance use?: No Alcohol Use?: No Pt feels they are or have been: No Immunizations Up To Date Tetanus Booster (TDap): More than 5yrs First/Initial COVID19 Vaccinat: 09/13 Second COVID19 Vaccination Dominic: 09/13 Third COVID19 Vaccination Date: 09/13 Seasonal Allergies Seasonal Allergies: No Past Medical History Surgery/Hospitalization HX: C section x2, tonsils Surgeries: Yes Gallbladder Respiratory: No Cardiac: No Neurological: No Reproductive Disorders: No Female Reproductive Disorders: Ovarian Cyst Sexually Transmitted Disease: No HIV/AIDS: No Genitourinary: No Bladder Infection Gastrointestinal: Yes Gastroesophageal Reflux Musculoskeletal: No Endocrine: No HEENT: No Cancer: No Psychosocial: Yes Anxiety Integumentary: No Blood Disorders: No Adverse Reaction/Blood Tranf: No Family Medical History No Pertinent Family Hx Physical Exam Vital Signs Vital Signs - First Documented 02/21/23 23:28 Temp 37.0 Pulse 94 Resp 18 B/P (MAP) 137/102 (114) Pulse Ox 100 O2 Delivery Room Air Capillary Refill : Height, Weight, BMI Height: '" Weight: 97lbs. oz. 43.134578gh; 29.00 BMI Method:Stated General Appearance: No Apparent Distress, WD/WN Cardiovascular: Regular Rate, Rhythm, Normal Peripheral Pulses Respiratory: Chest Non Tender, Lungs Clear, Normal Breath Sounds Gastrointestinal: Normal Bowel Sounds, No Pulsatile Mass, Non Tender, Soft Back: No CVA Tenderness, Muscle Spasm, Vertebral Tenderness (Lumbar spine without crepitus or step-off) Extremity: Normal Capillary Refill, Normal Inspection, Non Tender, No Calf Tenderness, No Pedal Edema Neurologic/Psychiatric: Alert, Oriented x3, can repairer II-XII Norm as Tested Skin: Normal Color, Warm/Dry Progress/Results/Core Measures Results/Orders My Orders Orders - VIPIN NASH MD Ketorolac Injection (Toradol Injection) (02/21/23 23:42) Orphenadrine Inj (Ed Only) (Norflex Inje (02/21/23 23:42) Ct Lumbar Spine Wo (02/21/23 23:43) Vital Signs/I&O 02/21/23 23:28 Temp 37.0 Pulse 94 Resp 18 B/P (MAP) 137/102 (114) Pulse Ox 100 O2 Delivery Room Air Progress Progress Note #1: Progress Note Potential diagnosis acute exacerbation of low back pain, muscle strain, muscle spasm. As she had normal labs done less than 24 hours ago will defer repeating those. She had negative serum test on the and bedside test last night. Will order a CT scan of the lumbar spine to look for any acute bony abnormality to contribute to her increased pain. Try dose of Toradol 60 mg IM with Norflex 60 mg IM to try and help with her pain and muscle spasms. Progress Note #2: Time: 00:21 Progress Note On my personal interpretation and review of the CT scan of the lumbar spine without IV contrast I did not appreciate any acute fractures or displacement. There is no acute mass. Will proceed with treatment using a muscle relaxer and anti-inflammatory. From the end of December when she was seen for urgent care and work comp she received meloxicam and cyclobenzaprine. She also had a short steroid burst. We will prescribe the meloxicam and cyclobenzaprine to try and help. Meloxicam 7.5 mg once a day for pain and inflammation. Cyclobenzaprine 5 mg p.o. 3 times daily as needed pain and muscle spasms. Encouraged to stay well-hydrated and check back with her clinic for continued concerns. She may need to see Work comp again or wear her back brace if her back continues to give her more problems. 0048 I reviewed the [facility] radiologist report on the CT scan of Lumbar spine without IV contrast. They reported a left paracentral disc protrusion measuring approximately 4 mm. They recommended outpatient MRI. There was no acute fracture or compression. I called and updated the patient over the phone as I had released her after the shots and I had reviewed the CT images since she was here with her and young child. I had released them so that they could try and go home and had advised him that I would call with the report. I let her know that her CT scan had shown a mild bulging disc or disc protrusion and the radiologist had recommended outpatient MRI. I advised her to wear her back brace until she can get back with the work comp clinic since she felt like this was related to her back injury from December. Advised to have her check with the employer about getting back with work comp and continuing to follow work restrictions and light duty until she can be seen and cleared. Diagnostic Imaging Diagonstic Imaging: CT Plain Films/CT/US/NM/MRI: other (Lumbar spine) Comments CT scan of the lumbar spine without IV contrast Impression: No acute fracture. At L5-S1 there is left paracentral disc protrusion measuring 4 to 5 mm. Recommend outpatient MRI. Read by radiologist Dr. Jeannette Barnett MD at 0012 and faxed at [phone] Reviewed: Reviewed [facility] Study, Reviewed by Me (I reviewed the [facility] report at 0048) Departure Impression Primary Impression: Acute exacerbation of chronic low back pain Additional Impressions: Lumbar paraspinal muscle spasm Bulging of lumbar intervertebral disc Disposition: HOME, SELF-CARE Condition: Stable Departure-Patient Inst. Decision time for Depature: 00:24 Referrals: NO,LOCAL PHYSICIAN (PCP) Primary Care Physician [facility] [place] Instructions: Muscle Spasm ED, Low Back Pain ED Add. Discharge Instructions: Your CT scan of the lumbar spine does not show any compression of the spinal cord or acute fractures. Try the muscle relaxer and anti-inflammatory pain medicine as prescribed. If not improving or having worsening symptoms check back with work and they may send you back to Work Comp clinic for repeat evaluation. All discharge instructions reviewed with patient and/or family. Voiced understanding. Scripts Cyclobenzaprine HCl (Cyclobenzaprine HCl) 5 Mg Tablet 5 MG PO TID PRN for muscle spasm/back pain for 10 Days, #30 TAB 0 Refills Prov: VIPIN NASH MD 02/21/23 Meloxicam (Meloxicam) 7.5 Mg Tablet 7.5 MG PO DAILY for Low back pain for 10 Days, #10 TAB 0 Refills Prov: VIPIN NASH MD 02/21/23 Work/School Note: Work Release Form Date Seen in the Emergency Department: Feb 21, 2023 Return to Work: Feb 22, 2023 Restrictions: Need Release from Doctor Other Restrictions Listed Below: Light duty and no lifting >10 pounds x 1 week or until cleared by clinic VIPIN NASH MD Feb 21, 2023 23:49
[2023-02-21] MEDS ORDERED: CYCL5TAB PO (23:54)
[2023-02-21] MEDS ORDERED: MELO7.5T46 PO (23:54)
--- NOTE | 2023-02-22 08:16 | Diagnostic Imaging Report ---
PROCEDURE: CT lumbar spine without contrast. TECHNIQUE: Multiple contiguous axial images were obtained through the lumbar spine without the use of intravenous contrast. Sagittal and coronal reformations were then performed. Auto Exposure Controls were utilized during the CT exam to meet ALARA standards for radiation dose reduction. Date: February 22, 2023. Indication: 32-year-old female, low back pain. Comparison: CT abdomen pelvis July 23, 2022. Findings: The alignment of the lumbar spine is unremarkable. There is no pars interarticularis defect. There is no identified compression deformity or fracture. There is very mild disc height loss at L5-S1. CT is limited for assessment of disc pathology as well as additional nonbony causes of pathology in the spinal canal. There are no prominent facet degenerative changes of the lumbar spine. There is a posterior disc protrusion at L5-S1 with mild spinal stenosis. Impression: 1. No identified acute fracture or other acute osseous abnormality of the lumbar spine. 2. L5-S1 posterior disc protrusion with mild spinal stenosis. Agree with the provided preliminary report. Dictated by: Dictated on workstation # [id number]
== END 2023-02-22 00:29 | disposition home or self-care (01) ==
LOC: EDUNIT# 23:19 → ER FS 23:21
DX: M51.36 Other intervertebral disc degeneration, lumbar region (principal); G89.29 Other chronic pain; M51.27 Other intervertebral disc displacement, lumbosacral region; Z87.828 Personal history of other (healed) physical injury and trauma
CPT/HCPCS: 72131; 96372

== ENCOUNTER 2023-03-05 22:25 | Emergency (ER) | payer MEDICAID ==
[~2023-03-05] VITALS: Ht 165.1 cm; Wt 78.5 kg
[~2023-03-05 22:25] MED LIST changes: +MELO7.5T46 PO
[2023-03-05 23:17] LABS: CLARITY,URINE CLEAR; COLOR,URINE YELLOW; PH,URINE 5.5 (5-9)
[2023-03-05 23:18] LABS: AMORPHOUS SEDIMENT,UR FEW AMOR URATES /LPF; BACTERIA,URINE FEW /HPF; BILIRUBIN,URINE NEGATIVE (NEGATIVE); GLUCOSE, URINE (UA) NEGATIVE (NEGATIVE); KETONES,URINE NEGATIVE (NEGATIVE); LEUKOCYTE ESTERASE ,URINE 1+ (NEGATIVE); NITRITE,URINE NEGATIVE (NEGATIVE); PROTEIN,URINE NEGATIVE (NEGATIVE); WBC,URINE 0-2 /HPF
[2023-03-05 23:30] LABS: AMPHETAMINE SCREEN, URINE NEGATIVE (NEGATIVE); BARBITURATE SCREEN URINE NEGATIVE (NEGATIVE); BENZODIAZEPINES SCREEN URINE NEGATIVE (NEGATIVE); CANNABINOID SCREEN, URINE NEGATIVE (NEGATIVE); COCAINE SCREEN URINE NEGATIVE (NEGATIVE); METHADONE STAT NEGATIVE (NEGATIVE); OPIATE SCREEN URINE NEGATIVE (NEGATIVE); OXYCODONE STAT NEGATIVE (NEGATIVE); PROPOXYPHENE STAT NEGATIVE (NEGATIVE); TRICYCLIC ANTIDEPRESSANTS SCRE NEGATIVE (NEGATIVE)
[2023-03-05] MEDS ORDERED: NITR-65 PO (23:40)
[2023-03-05] MEDS ORDERED: ONDA8TAB13 PO (23:40)
[2023-03-05] MEDS ORDERED: METO-310 PO (23:40)
[2023-03-05] MEDS ORDERED: PANT40TA2 PO (23:40)
--- NOTE | 2023-03-05 23:40 | ED General ---
General Chief Complaint: Abdominal/GI Problems Stated Complaint: NAUSEA - LIGHT HEADED Nursing Triage Note: PT AMB TO ED BY POV WITH C/O NAUSEA AND LIGHT HEADEDNESS X 1 WK. PT DENIES VOMITING OR ABD PAIN, REPORTS SOME DIARRHEA WELL DARK STOOL. Source of Information: Patient History of Present Illness Date Seen by Provider: Mar 05, 2023 Time Seen by Provider: 22:40 Initial Comments PT ARRIVES VIA POV FROM HOME WITH MALE S.O. AND 1 Y.O. CHILD PT C/O NAUSEA AND LIGHTHEADNESS X 1 WEEK Allergies and Home Medications Allergies Coded Allergies: No Known Drug Allergies (Unverified , 02/26/13) Patient Home Medication List Cephalexin (Cephalexin) 500 Mg Tablet, 500 MG PO BID Prescribed by: OTILIO OCAMPO MD on 07/23/222205 Cyclobenzaprine HCl (Cyclobenzaprine HCl) 5 Mg Tablet, 5 MG PO BID PRN for BACK PAIN Prescribed by: JACKY PAIGE on 01/15/23 0811 Cyclobenzaprine HCl (Cyclobenzaprine HCl) 5 Mg Tablet, 5 MG PO TID PRN for muscle spasm/back pain Prescribed by: VIPIN NASH on 02/21/23 2354 Guaifenesin/Dextromethorphan (Mucinex Dm ER 1,200-60 mg Tab) 1,200 Mg-60 Mg Tbmp.12hr, 1 EACH PO BID Prescribed by: ARAMIS DUQUE on 07/16/222043 Hydrocodone/Acetaminophen (Hydrocodone-Acetamin 5-325 mg) 5 Mg-325 Mg Tablet, 1 TAB PO Q4H PRN for PAIN-MODERATE (5-7) Prescribed by: ARAMIS DUQUE on 07/25/22 194 Ibuprofen (Ibuprofen) 800 Mg Tablet, 800 MG PO Q8H PRN for PAIN Prescribed by: JACKY PAIGE on 01/15/232121 Meclizine HCl (Meclizine HCl) 25 Mg Tablet, 25 MG PO TID PRN for DIZZINESS Prescribed by: VIPIN NASH on 05/09/22 153 Meloxicam (Meloxicam) 7.5 Mg Tablet, 7.5 MG PO DAILY Prescribed by: VIPIN NASH on 02/21/23 2354 Metoclopramide HCl (Reglan) 10 Mg Tablet, 10 MG PO Q6H Prescribed by: PREET STAPLETON on 03/05/232339 Metronidazole (Metronidazole) 500 Mg Tablet, 500 MG PO TID Prescribed by: ARAMIS DUQUE on 07/25/221945 Nitrofurantoin Monohyd/M-Cryst (Macrobid 100 mg Capsule) 100 Mg Capsule, 1 TAB PO BID Prescribed by: PREET STAPLETON on 03/05/232339 Ondansetron (Ondansetron Odt) 4 Mg Tab.rapdis, 4 MG SL Q6H PRN for NAUSEA/VOMITING Prescribed by: YOLY ALLEN on 02/20/232121 Ondansetron (Ondansetron Odt) 8 Mg Tab.rapdis, 8 MG PO Q6H Prescribed by: PREET STAPLETON on 03/05/232339 Pantoprazole Sodium (Protonix) 40 Mg Tablet.dr, 40 MG PO DAILY Prescribed by: PREET STAPLETON on 03/05/232339 Prednisone (Prednisone) 20 Mg Tab, 40 MG PO DAILY Prescribed by: ARAMIS DUQUE on 07/25/221945 Promethazine HCl (Promethazine Tablet) 25 Mg Tablet, 25 MG PO Q8H PRN for NAUSEA/VOMITING-2ND LINE Prescribed by: YOLY ALLEN on 02/20/232121 Past Oacoqea-Uxocxx-Dvjqpi Hx Patient Social History Tobacco Use?: Yes Tobacco type used: Cigarettes Smoking Status: Current Everyday Smoker Use of E-Cig and/or Vaping dev: No Substance use?: No Alcohol Use?: No Pt feels they are or have been: No Immunizations Up To Date Tetanus Booster (TDap): More than 5yrs Influenza Vaccine Up-to-Date: No; Not Current First/Initial COVID19 Vaccinat: X2 Second COVID19 Vaccination Dominic: X2 Third COVID19 Vaccination Date: 09/13 Seasonal Allergies Seasonal Allergies: No Past Medical History Surgery/Hospitalization HX: C section x1, tonsils HTN Surgeries: Yes Gallbladder Respiratory: No Cardiac: No Neurological: No Reproductive Disorders: No Female Reproductive Disorders: Ovarian Cyst Sexually Transmitted Disease: No HIV/AIDS: No Genitourinary: No Bladder Infection Gastrointestinal: Yes Gastroesophageal Reflux Musculoskeletal: No Endocrine: No HEENT: No Cancer: No Psychosocial: Yes Anxiety Integumentary: No Blood Disorders: No Adverse Reaction/Blood Tranf: No Family Medical History No Pertinent Family Hx Physical Exam Vital Signs Vital Signs - First Documented 03/05/23 22:38 Temp 36.5 Pulse 88 Resp 16 B/P (MAP) 129/89 (102) Pulse Ox 97 O2 Delivery Room Air Capillary Refill : Less Than 3 Seconds Height, Weight, BMI Height: '" Weight: 97lbs. oz. 43.183070ec; 28.00 BMI Method:Stated Progress/Results/Core Measures Suspected Sepsis SIRS Temperature: Pulse: 88 Respiratory Rate: 16 Blood Pressure 129 /89 Mean: 102 Results/Orders Lab Results Laboratory Tests Test 03/05/23 22:46 03/05/23 23:12 Range/Units Urine Color YELLOW Urine Clarity CLEAR Urine pH 5.5 5-9 Urine Specific [place] 1.010 L 1.016-1.022 Urine Protein NEGATIVE NEGATIVE Urine Glucose (UA) NEGATIVE NEGATIVE Urine Ketones NEGATIVE NEGATIVE Urine Nitrite NEGATIVE NEGATIVE Urine Bilirubin NEGATIVE NEGATIVE Urine Urobilinogen 0.2 < = 1.0 MG/DL Urine Leukocyte Esterase 1+ H NEGATIVE Urine RBC (Auto) NEGATIVE NEGATIVE Urine RBC NONE /HPF Urine WBC 0-2 /HPF Urine Squamous Epithelial Cells 2-5 /HPF Urine Crystals PRESENT H /LPF Urine Amorphous Sediment FEW CHERRY URATES H /LPF Urine Bacteria FEW H /HPF Urine Casts NONE /LPF Urine Mucus NEGATIVE /LPF Urine Culture Indicated YES Urine Opiates Screen NEGATIVE NEGATIVE Urine Oxycodone Screen NEGATIVE NEGATIVE Urine Methadone Screen NEGATIVE NEGATIVE Urine Propoxyphene Screen NEGATIVE NEGATIVE Urine Barbiturates Screen NEGATIVE NEGATIVE Ur Tricyclic Antidepressants Screen NEGATIVE NEGATIVE Urine Phencyclidine Screen NEGATIVE NEGATIVE Urine Amphetamines Screen NEGATIVE NEGATIVE Urine Methamphetamines Screen NEGATIVE NEGATIVE Urine Benzodiazepines Screen NEGATIVE NEGATIVE Urine Cocaine Screen NEGATIVE NEGATIVE Urine Cannabinoids Screen NEGATIVE NEGATIVE Influenza Type A (RT-PCR) Not Detected Not Detecte Influenza Type B (RT-PCR) Not Detected Not Detecte SARS-CoV-2 RNA (RT-PCR) Not Detected Not Detecte My Orders Orders - PREET STAPLETON DO Urine Bedside (03/05/23 22:39) Ua Culture If Indicated (03/05/23 22:39) Covid 19 Inhouse Test (03/05/23 23:09) Influenza A And B By Pcr (03/05/23 23:09) Drug Screen Stat (Urine) (03/05/23 23:15) Urine Culture (03/05/23 22:46) Scopolamine Patch (Transderm-Scop Patch) (03/05/23 23:45) Vital Signs/I&O 03/05/23 22:38 Temp 36.5 Pulse 88 Resp 16 B/P (MAP) 129/89 (102) Pulse Ox 97 O2 Delivery Room Air Capillary Refill : Less Than 3 Seconds Blood Pressure Mean: 102 Departure Impression Primary Impression: Nausea alone Additional Impression: UTI (urinary tract infection) Disposition: HOME, SELF-CARE Condition: Stable Departure-Patient Inst. Decision time for Depature: 23:37 Referrals: NO,LOCAL PHYSICIAN (PCP/Family) Primary Care Physician Patient Instructions: Urinary Tract Infection, Adult ED, Nausea and Vomiting, Adult ED Add. Discharge Instructions: LEAVE SCOPOLAMINE PATCH IN PLACE FOR 3 DAYS LOTS OF CLEAR LIQUIDS--WATER, BROTH, JELLO, GATORADE TYLENOL AND MOTRIN FOR PAIN OR FEVER FOLLOW UP WITH YOUR DR THIS WEEK FOR FURTHER CARE All discharge instructions reviewed with patient and/or family. Voiced understanding. Scripts Pantoprazole Sodium (Protonix) 40 Mg Tablet.dr 40 MG PO DAILY, #15 TAB Prov: PREET STAPLETON DO 03/05/23 Nitrofurantoin Monohyd/M-Cryst (Macrobid 100 mg Capsule) 100 Mg Capsule 1 TAB PO BID, #20 CAP Prov: PREET STAPLETON DO 03/05/23 Metoclopramide HCl (Reglan) 10 Mg Tablet 10 MG PO Q6H for Nausea/Vomiting, #10 TAB Prov: PREET STAPLETON DO 03/05/23 Ondansetron (Ondansetron Odt) 8 Mg Tab.rapdis 8 MG PO Q6H, #10 TAB Prov: PREET STAPLETON DO 03/05/23 PREET STAPLETON DO Mar 05, 2023 23:40
[2023-03-05] MEDS ORDERED: SCOPOLAMINE 1.5 MG (TRANSDERM-SCOP) PATCH TD ONE (23:45)
[2023-03-05] MEDS ORDERED: RX-NITROFURANTOIN 100 MG (MACROBID) CAP PPK#2 PO STA (23:52)
[2023-03-06 00:21] VITALS: BP 108/82
== END 2023-03-06 00:21 | disposition home or self-care (01) ==
LOC: EDUNIT# 22:25 → ER 22:26
DX: R11.0 Nausea (principal); N39.0 Urinary tract infection, site not specified; F17.210 Nicotine dependence, cigarettes, uncomplicated; Z20.822 Contact with and (suspected) exposure to COVID-19
CPT/HCPCS: 80306; 81000; 84703; 87088; 87636; 99283

== ENCOUNTER 2023-03-23 20:26 | Emergency (ER) | payer MEDICAID ==
[~2023-03-23] VITALS: Ht 165 cm; Wt 77.1 kg
[~2023-03-23 20:26] MED LIST changes: +METO-310 PO; +ONDA8TAB13 PO; +PANT40TA2 PO
--- NOTE | 2023-03-23 20:38 | ED General ---
General Chief Complaint: Neurological Problems Stated Complaint: SEIZURE LIKE ACTIVITY Source of Information: Patient, EMS, Family Exam Limitations: No Limitations History of Present Illness Date Seen by Provider: Mar 23, 2023 Time Seen by Provider: 20:27 Initial Comments 32-year-old female coming in via EMS due to concerns for seizure-like activity. The patient does not reportedly have a history of seizures. She was at work, one of her coworkers left, the patient was supposed to leave work at 9 PM and she was told she would not be able to leave until 10 PM. She told her boss that she was not feeling well and may not be able to stay that long. She took her temperature and was 99.9. She gave herself Tylenol. Afterwards is when she had the episode that was witnessed by workers. Her brother was called to go pick her up and she had an episode where she collapsed into his arms. EMS did not visualize any seizure-like activity on their end. Her glucose was 120 and she was mildly hypertensive for them. She appeared postictal initially to them, however they then state that she would randomly follow commands or be watching them, when they would turn to look at her, she returned the other way as if she was not looking. She denies any pain anywhere at this time. Allergies and Home Medications Allergies Coded Allergies: No Known Drug Allergies (Unverified , 02/26/13) Patient Home Medication List Home Medication List Reviewed: Yes Cephalexin (Cephalexin) 500 Mg Tablet, 500 MG PO BID Prescribed by: OTILIO OCAMPO MD on 07/23/226 Cyclobenzaprine HCl (Cyclobenzaprine HCl) 5 Mg Tablet, 5 MG PO BID PRN for BACK PAIN Prescribed by: JACKY PAIGE on 01/15/23 0811 Cyclobenzaprine HCl (Cyclobenzaprine HCl) 5 Mg Tablet, 5 MG PO TID PRN for muscle spasm/back pain Prescribed by: VIPIN NASH on 02/21/23 2354 Guaifenesin/Dextromethorphan (Mucinex Dm ER 1,200-60 mg Tab) 1,200 Mg-60 Mg Tbmp.12hr, 1 EACH PO BID Prescribed by: ARAMIS DUQUE on 07/16/22 204 Hydrocodone/Acetaminophen (Hydrocodone-Acetamin 5-325 mg) 5 Mg-325 Mg Tablet, 1 TAB PO Q4H PRN for PAIN-MODERATE (5-7) Prescribed by: ARAMIS DUQUE on 07/25/221946 Ibuprofen (Ibuprofen) 800 Mg Tablet, 800 MG PO Q8H PRN for PAIN Prescribed by: JACKY PAIGE on 01/15/232121 Meclizine HCl (Meclizine HCl) 25 Mg Tablet, 25 MG PO TID PRN for DIZZINESS Prescribed by: VIPIN NASH on 05/09/22 1530 Meloxicam (Meloxicam) 7.5 Mg Tablet, 7.5 MG PO DAILY Prescribed by: VIPIN NASH on 02/21/23 235 Metoclopramide HCl (Reglan) 10 Mg Tablet, 10 MG PO Q6H Prescribed by: PREET STAPLETON on 03/05/232339 Metronidazole (Metronidazole) 500 Mg Tablet, 500 MG PO TID Prescribed by: ARAMIS DUQUE on 07/25/221945 Nitrofurantoin Monohyd/M-Cryst (Macrobid 100 mg Capsule) 100 Mg Capsule, 1 TAB PO BID Prescribed by: PREET STAPLETON on 03/05/232339 Ondansetron (Ondansetron Odt) 4 Mg Tab.rapdis, 4 MG SL Q6H PRN for NAUSEA/VOMITING Prescribed by: YOLY ALLEN on 02/20/232121 Ondansetron (Ondansetron Odt) 8 Mg Tab.rapdis, 8 MG PO Q6H Prescribed by: PREET STAPLETON on 03/05/232339 Pantoprazole Sodium (Protonix) 40 Mg Tablet.dr, 40 MG PO DAILY Prescribed by: PREET STAPLETON on 03/05/232339 Prednisone (Prednisone) 20 Mg Tab, 40 MG PO DAILY Prescribed by: ARAMIS DUQUE on 07/25/221945 Promethazine HCl (Promethazine Tablet) 25 Mg Tablet, 25 MG PO Q8H PRN for NA USEA/VOMITING-2ND LINE Prescribed by: YOLY ALLEN on 02/20/232121 Review of Systems Review of Systems Constitutional: No fever EENTM: no symptoms reported Respiratory: no symptoms reported Cardiovascular: no symptoms reported Gastrointestinal: no symptoms reported Genitourinary: no symptoms reported Musculoskeletal: no symptoms reported Skin: no symptoms reported Psychiatric/Neurological: See HPI Hematologic/Lymphatic: No Symptoms Reported Past Xfbwjrn-Dvettz-Vidzih Hx Immunizations Up To Date Tetanus Booster (TDap): More than 5yrs First/Initial COVID19 Vaccinat: X2 Second COVID19 Vaccination Dominic: X2 Third COVID19 Vaccination Date: 09/13 Seasonal Allergies Seasonal Allergies: No Past Medical History Surgery/Hospitalization HX: C section x2, tonsils HTN Surgeries: Yes Section, Gallbladder Respiratory: No Cardiac: No Neurological: No Reproductive Disorders: No Female Reproductive Disorders: Ovarian Cyst Sexually Transmitted Disease: No HIV/AIDS: No Genitourinary: Yes Bladder Infection Gastrointestinal: Yes (CHRONIC NAUSEA) Gastroesophageal Reflux Musculoskeletal: No Endocrine: No HEENT: No Cancer: No Psychosocial: Yes Anxiety, Depression Integumentary: No Blood Disorders: No Adverse Reaction/Blood Tranf: No Family Medical History No Pertinent Family Hx Physical Exam Vital Signs Vital Signs - First Documented 03/23/23 20:26 Temp 37.4 Pulse 71 Resp 18 B/P (MAP) 158/103 (121) Pulse Ox 98 O2 Delivery Room Air Capillary Refill : Height, Weight, BMI Height: '" Weight: 97lbs. oz. 43.646946hs; 28.00 BMI Method:Stated General Appearance: No Apparent Distress, WD/WN Eyes: Bilateral Eye Normal Inspection, Bilateral Eye PERRL, Bilateral Eye EOMI HEENT: PERRL/EOMI, Normal ENT Inspection, Pharynx Normal Neck: Full Range of Motion, Normal Inspection, Non Tender, Supple Respiratory: Chest Non Tender, Lungs Clear, Normal Breath Sounds, No Accessory Muscle Use, No Respiratory Distress Cardiovascular: Regular Rate, Rhythm, No Edema, Normal Peripheral Pulses Gastrointestinal: Normal Bowel Sounds, Non Tender, Soft; No Distended, No Guarding Back: Normal Inspection, No CVA Tenderness, No Vertebral Tenderness Extremity: Normal Capillary Refill, Normal Inspection, Normal Range of Motion, Non Tender, No Calf Tenderness, No Pedal Edema Neurologic/Psychiatric: Alert, 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, Normal Mood/Affect Skin: Normal Color, Warm/Dry Progress/Results/Core Measures Suspected Sepsis SIRS Temperature: Pulse: Respiratory Rate: Laboratory Tests 03/23/23 20:35: White Blood Count 9.9 Blood Pressure / Mean: Laboratory Tests 03/23/23 20:35: Creatinine 0.84, Platelet Count 248, Total Bilirubin 0.2 Results/Orders Lab Results Laboratory Tests Test 03/23/23 20:35 03/23/23 20:40 Range/Units White Blood Count 9.9 4.3-11.0 10^3/uL Red Blood Count 4.51 3.80-5.11 10^6/uL Hemoglobin 13.7 11.5-16.0 g/dL Hematocrit 43 35-52 % Mean Corpuscular Volume 94 80-99 fL Mean Corpuscular Hemoglobin 30 25-34 pg Mean Corpuscular Hemoglobin Concent 32 32-36 g/dL Red Cell Distribution Width 13.2 10.0-14.5 % Platelet Count 248 130-400 10^3/uL Mean Platelet Volume 10.7 9.0-12.2 fL Immature Granulocyte % (Auto) 0 % Neutrophils (%) (Auto) 47 42-75 % Lymphocytes (%) (Auto) 43 12-44 % Monocytes (%) (Auto) 7 0-12 % Eosinophils (%) (Auto) 2 0-10 % Basophils (%) (Auto) 0 0-10 % Neutrophils # (Auto) 4.6 1.8-7.8 10^3/uL Lymphocytes # (Auto) 4.3 H 1.0-4.0 10^3/uL Monocytes # (Auto) 0.7 0.0-1.0 10^3/uL Eosinophils # (Auto) 0.2 0.0-0.3 10^3/uL Basophils # (Auto) 0.0 0.0-0.1 10^3/uL Immature Granulocyte # (Auto) 0.0 0.0-0.1 10^3/uL Neutrophils % (Manual) 40 % Lymphocytes % (Manual) 43 % Monocytes % (Manual) 6 % Eosinophils % (Manual) 4 % Basophils % (Manual) 0 % Band Neutrophils 3 % Atypical Lymphocytes 4 % Platelet Estimate ADEQUATE Blood Morphology Comment NORMAL Sodium Level 140 135-145 MMOL/L Potassium Level 3.7 3.6-5.0 MMOL/L Chloride Level 108 H 98-107 MMOL/L Carbon Dioxide Level 21 21-32 MMOL/L Anion Gap 11 5-14 MMOL/L Blood Urea Nitrogen 7 7-18 MG/DL Creatinine 0.84 0.60-1.30 MG/DL Estimat Glomerular Filtration Rate 95 BUN/Creatinine Ratio 8 Glucose Level 116 H 70-105 MG/DL Calcium Level 9.4 8.5-10.1 MG/DL Corrected Calcium 9.3 8.5-10.1 MG/DL Magnesium Level 2.1 1.6-2.4 MG/DL Total Bilirubin 0.2 0.1-1.0 MG/DL Aspartate Amino Transf (AST/SGOT) 21 5-34 U/L Alanine Aminotransferase (ALT/SGPT) 23 0-55 U/L Alkaline Phosphatase 103 40-136 U/L Total Protein 6.7 6.4-8.2 GM/DL Albumin 4.1 3.2-4.5 GM/DL Serum Test, Qualitative NEGATIVE NEGATIVE Serum Alcohol < 10 <10 MG/DL Urine Opiates Screen NEGATIVE NEGATIVE Urine Oxycodone Screen NEGATIVE NEGATIVE Urine Methadone Screen NEGATIVE NEGATIVE Urine Propoxyphene Screen NEGATIVE NEGATIVE Urine Barbiturates Screen NEGATIVE NEGATIVE Ur Tricyclic Antidepressants Screen NEGATIVE NEGATIVE Urine Phencyclidine Screen NEGATIVE NEGATIVE Urine Amphetamines Screen NEGATIVE NEGATIVE Urine Methamphetamines Screen NEGATIVE NEGATIVE Urine Benzodiazepines Screen NEGATIVE NEGATIVE Urine Cocaine Screen NEGATIVE NEGATIVE Urine Cannabinoids Screen NEGATIVE NEGATIVE My Orders Orders - YOLY ALLEN MD Alcohol (03/23/23 20:35) Cbc With Automated Diff (03/23/23 20:35) Comprehensive Metabolic Panel (03/23/23 20:35) Hcg,Qualitative Serum (03/23/23 20:35) Magnesium (03/23/23 20:35) Ed Iv/Invasive Line Start (03/23/23 20:35) Lorazepam Injection (Lorazepam Injection (03/23/23 20:35) Ct Head Wo (03/23/23 20:41) Drug Screen Stat (Urine) (03/23/23 20:41) Manual Differential (03/23/23 20:35) Vital Signs/I&O 03/23/23 20:26 Temp 37.4 Pulse 71 Resp 18 B/P (MAP) 158/103 (121) Pulse Ox 98 O2 Delivery Room Air Capillary Refill : Progress Note : Progress Note 32-year-old female with above history coming in due to seizure-like activity. ABCs were intact and vitals were stable on presentation. Physical exam reassuring including a nonfocal neuro exam. I personally witnessed an "episode" where the patient violently shook her head left and right for 5 seconds. Afterwards she was immediately alert and answering questions for me and was not postictal. She described that this episode at work started after she was told that she would need to stay at work later on the evening shift tonight since one of her coworkers left. Glucose is normal. An IV was placed and basic labs were obtained and were significant for normal hemoglobin, normal creatinine, normal sodium, negative test, negative urine drug screen. CT head ordered and interpreted by me showing no obvious intracranial hemorrhage or large mass. Patient has been at her baseline since arrival here. The episode I witnessed in the ER was not consistent with epileptic seizures and more consistent with PNES. Even if this was a first-time seizure, she would not require medications at this time, and if she has a second episode would definitely refer to a neurologist. Given patient is at her mental baseline, I believe she stable for discharge with outpatient follow-up. She was sent home with strict return precautions Diagnostic Imaging Diagonstic Imaging: CT (head) Comments [facility], [place] NAME: HUSSEIN COBIAN [facility] REC#: [id number] PT STATUS: REG ER : 1990 PHYSICIAN: YOLY ALLEN MD ADMIT DATE: 03/23/23/ER FS Draft Date of Exam:03/23/23 CT HEAD WO EXAMINATION: CT head without contrast. TECHNIQUE: Multiple contiguous axial images were obtained through the brain without the use of intravenous contrast. All CT scans use one or more of the following dose optimizing techniques: automated exposure control, MA and/or KvP adjustment based on patient size and exam type or iterative reconstruction. HISTORY: Seizure COMPARISON: 05/11/2022 FINDINGS: The welch-white matter differentiation is normal. No mass effect or midline shift. The ventricles are normal in size and configuration. Basilar cisterns are patent. There are no intra- or extra-axial fluid collections. There is no intracranial hemorrhage. The orbits are normal. Paranasal sinuses are normal. Mastoid air cells are clear. No soft tissue abnormality is seen. No osseus lesions or fractures are seen. IMPRESSION: 1. No acute intracranial abnormality. Dictated on workstation # [id number] Dict: 03/23/232114 Trans: 03/23/232117 CVB [id number] Interpreted by: TAMIKO MICHAUD MD Electronically signed by: Departure Impression Primary Impression: Seizure-like activity Disposition: HOME, SELF-CARE Condition: Stable Departure-Patient Inst. Decision time for Depature: 21:35 Referrals: NO,LOCAL PHYSICIAN (PCP/Family) Primary Care Physician Patient Instructions: Syncope (Fainting) (DC) Add. Discharge Instructions: The episode we saw in the ER fortunately did not appear like a seizure. It appears like a stress reaction which can happen when you are feeling sick. Please follow-up with your regular doctor in the next few days. If you have another episode like this, it may be warranted to have a referral to a neurologist. Do not drive if you feel like this will happen. Work/School Note: Work Release Form Date Seen in the Emergency Department: Mar 23, 2023 Return to Work: Mar 25, 2023 Restrictions: No Restrictions YOLY ALLEN MD Mar 23, 2023 20:38
[2023-03-23 20:40] LABS: BASOPHILS % (AUTO) 0 % (0-10); EOSINOPHILS # (AUTO) 0.2 10^3/uL (0.0-0.3); EOSINOPHILS % (AUTO) 2 % (0-10); HEMATOCRIT 43 % (35-52); HEMOGLOBIN 13.7 g/dL (11.5-16.0); LYMPHOCYTES # (AUTO) 4.3 10^3/uL (1.0-4.0); LYMPHOCYTES % (AUTO) 43 % (12-44); MEAN CORPUSCULAR HEMOGLOBIN 30 pg (25-34); MEAN CORPUSCULAR HGB CONC 32 g/dL (32-36); MEAN CORPUSCULAR VOLUME 94 fL (80-99); MEAN PLATELET VOLUME 10.7 fL (9.0-12.2); MONOCYTES # (AUTO) 0.7 10^3/uL (0.0-1.0); MONOCYTES % (AUTO) 7 % (0-12); NEUTROPHILS # (AUTO) 4.6 10^3/uL (1.8-7.8); NEUTROPHILS % (AUTO) 47 % (42-75); PLATELET COUNT 248 10^3/uL (130-400); WHITE BLOOD COUNT 9.9 10^3/uL (4.3-11.0)
[2023-03-23 20:58] LABS: ATYPICAL LYMPHOCYTES 4 %; BAND NEUTROPHILS 3 %; BASOPHILS % (MANUAL) 0 %; EOSINOPHILS % (MANUAL) 4 %; LYMPHOCYTES % (MANUAL) 43 %; MONOCYTES % (MANUAL) 6 %; NEUTROPHILS % (MANUAL) 40 %; PLATELET ESTIMATE ADEQUATE; RBC MORPH NORMAL
[2023-03-23 21:01] LABS: ALANINE AMINOTRANSFERASE 23 U/L (0-55); ALKALINE PHOSPHATASE 103 U/L (40-136); BILIRUBIN,TOTAL 0.2 MG/DL (0.1-1.0); BUN/CREATININE RATIO 8; CALCIUM 9.4 MG/DL (8.5-10.1); CARBON DIOXIDE 21 MMOL/L (21-32); CHLORIDE 108 MMOL/L (98-107); CREATININE SERUM 0.84 MG/DL (0.60-1.30); GFR ESTIMATED 95; GLUCOSE 116 MG/DL (70-105); MAGNESIUM 2.1 MG/DL (1.6-2.4); POTASSIUM 3.7 MMOL/L (3.6-5.0); SODIUM 140 MMOL/L (135-145)
[2023-03-23 21:02] LABS: ALBUMIN 4.1 GM/DL (3.2-4.5); TOTAL PROTEIN 6.7 GM/DL (6.4-8.2)
[2023-03-23 21:04] LABS: AMPHETAMINE SCREEN, URINE NEGATIVE (NEGATIVE); BARBITURATE SCREEN URINE NEGATIVE (NEGATIVE); BENZODIAZEPINES SCREEN URINE NEGATIVE (NEGATIVE); CANNABINOID SCREEN, URINE NEGATIVE (NEGATIVE); COCAINE SCREEN URINE NEGATIVE (NEGATIVE); METHADONE STAT NEGATIVE (NEGATIVE); OPIATE SCREEN URINE NEGATIVE (NEGATIVE); OXYCODONE STAT NEGATIVE (NEGATIVE); PROPOXYPHENE STAT NEGATIVE (NEGATIVE); TRICYCLIC ANTIDEPRESSANTS SCRE NEGATIVE (NEGATIVE)
--- NOTE | 2023-03-23 21:19 | Diagnostic Imaging Report ---
EXAMINATION: CT head without contrast. TECHNIQUE: Multiple contiguous axial images were obtained through the brain without the use of intravenous contrast. All CT scans use one or more of the following dose optimizing techniques: automated exposure control, MA and/or KvP adjustment based on patient size and exam type or iterative reconstruction. HISTORY: Seizure COMPARISON: 05/11/2022 FINDINGS: The welch-white matter differentiation is normal. No mass effect or midline shift. The ventricles are normal in size and configuration. Basilar cisterns are patent. There are no intra- or extra-axial fluid collections. There is no intracranial hemorrhage. The orbits are normal. Paranasal sinuses are normal. Mastoid air cells are clear. No soft tissue abnormality is seen. No osseus lesions or fractures are seen. IMPRESSION: 1. No acute intracranial abnormality. Dictated by: Dictated on workstation # [id number]
[2023-03-23 21:30] VITALS: BP 137/76
== END 2023-03-23 21:30 | disposition home or self-care (01) ==
LOC: ER FS 20:26 → EDUNIT# 20:26 → ER FS 21:30
DX: R56.9 Unspecified convulsions (principal)
CPT/HCPCS: 36415; 70450; 80053; 80306; 83735; 84703 ×2; 85007; 85027; 99284; G0480; 80320

== ENCOUNTER 2023-04-01 08:53 | Emergency (ER) | payer MEDICAID ==
[~2023-04-01] VITALS: Ht 165.1 cm; Wt 81.6 kg
[2023-04-01] MEDS ORDERED: ONDA4TAB11 SL (09:08)
--- NOTE | 2023-04-01 09:09 | ED Cough/URI ---
General Chief Complaint: COVID19 Suspect/Confirmed Stated Complaint: FEVER; SANTIZO; COUGH; COVID+ Source: patient Exam Limitations: no limitations History of Present Illness Date Seen by Provider: Apr 01, 2023 Time Seen by Provider: 08:55 Initial Comments 32-year-old female with no pertinent past medical history coming in due to being positive for COVID. Last night, had a fever, headache, body aches. She has been staying with someone that is positive for COVID. She did a home test an hour ago and it was positive so she presented here. She has been eating and drinking normally, otherwise denying any other acute complaints. Has not taken any medicines for her fever today. LMP was less than a month ago. Allergies and Home Medications Allergies Coded Allergies: No Known Drug Allergies (Unverified , 02/26/13) Patient Home Medication List Home Medication List Reviewed: Yes Cephalexin (Cephalexin) 500 Mg Tablet, 500 MG PO BID Prescribed by: OTILIO OCAMPO MD on 07/23/222205 Cyclobenzaprine HCl (Cyclobenzaprine HCl) 5 Mg Tablet, 5 MG PO BID PRN for BACK PAIN Prescribed by: JACKY PAIGE on 01/15/23 0811 Cyclobenzaprine HCl (Cyclobenzaprine HCl) 5 Mg Tablet, 5 MG PO TID PRN for muscle spasm/back pain Prescribed by: VIPIN NASH on 02/21/23 2354 Guaifenesin/Dextromethorphan (Mucinex Dm ER 1,200-60 mg Tab) 1,200 Mg-60 Mg Tbmp.12hr, 1 EACH PO BID Prescribed by: ARAMIS DUQUE on 07/16/222043 Hydrocodone/Acetaminophen (Hydrocodone-Acetamin 5-325 mg) 5 Mg-325 Mg Tablet, 1 TAB PO Q4H PRN for PAIN-MODERATE (5-7) Prescribed by: ARAMIS DUQUE on 07/25/221946 Ibuprofen (Ibuprofen) 800 Mg Tablet, 800 MG PO Q8H PRN for PAIN Prescribed by: JACKY PAIGE on 01/15/232121 Meclizine HCl (Meclizine HCl) 25 Mg Tablet, 25 MG PO TID PRN for DIZZINESS Prescribed by: VIPIN NASH on 05/09/22 153 Meloxicam (Meloxicam) 7.5 Mg Tablet, 7.5 MG PO DAILY Prescribed by: VIPIN NASH on 02/21/232353 Metoclopramide HCl (Reglan) 10 Mg Tablet, 10 MG PO Q6H Prescribed by: PREET STAPLETON on 03/05/232339 Metronidazole (Metronidazole) 500 Mg Tablet, 500 MG PO TID Prescribed by: ARAMIS DUQUE on 07/25/221945 Nitrofurantoin Monohyd/M-Cryst (Macrobid 100 mg Capsule) 100 Mg Capsule, 1 TAB PO BID Prescribed by: PREET STAPLETON on 03/05/232339 Ondansetron (Ondansetron Odt) 4 Mg Tab.rapdis, 4 MG SL Q6H PRN for NAUSEA/VOMITING Prescribed by: YOLY ALLEN on 02/20/232121 Ondansetron (Ondansetron Odt) 8 Mg Tab.rapdis, 8 MG PO Q6H Prescribed by: PREET STAPLETON on 03/05/232339 Pantoprazole Sodium (Protonix) 40 Mg Tablet.dr, 40 MG PO DAILY Prescribed by: PREET STAPLETON on 03/05/232339 Prednisone (Prednisone) 20 Mg Tab, 40 MG PO DAILY Prescribed by: ARAMIS DUQUE on 07/25/221945 Promethazine HCl (Promethazine Tablet) 25 Mg Tablet, 25 MG PO Q8H PRN for NAUSEA/VOMITING-2ND LINE Prescribed by: YOLY ALLEN on 02/20/232121 Review of Systems Review of Systems Constitutional: fever, malaise EENTM: no symptoms reported Respiratory: no symptoms reported Cardiovascular: no symptoms reported Gastrointestinal: no symptoms reported Genitourinary: no symptoms reported Musculoskeletal: no symptoms reported Skin: no symptoms reported Psychiatric/Neurological: See HPI Hematologic/Lymphatic: No Symptoms Reported Past Lpcqkgc-Lccpdn-Oskmec Hx Patient Social History Tobacco Use?: Yes Tobacco type used: Cigarettes Immunizations Up To Date Tetanus Booster (TDap): More than 5yrs First/Initial COVID19 Vaccinat: X2 Second COVID19 Vaccination Dominic: X2 Third COVID19 Vaccination Date: 09/13 Seasonal Allergies Seasonal Allergies: No Past Medical History Surgery/Hospitalization HX: C section x2, tonsils HTN Surgeries: Yes Section, Gallbladder Respiratory: No Cardiac: No Neurological: No Reproductive Disorders: No Female Reproductive Disorders: Ovarian Cyst Sexually Transmitted Disease: No HIV/AIDS: No Genitourinary: Yes Bladder Infection Gastrointestinal: Yes (CHRONIC NAUSEA) Gastroesophageal Reflux Musculoskeletal: No Endocrine: No HEENT: No Cancer: No Psychosocial: Yes Anxiety, Depression Integumentary: No Blood Disorders: No Adverse Reaction/Blood Tranf: No Family Medical History No Pertinent Family Hx Physical Exam Capillary Refill : Height: '" Weight: 97lbs. oz. 43.807917sy; 28.00 BMI Method:Stated General Appearance: WD/WN, no apparent distress Eyes: Bilateral Eye Normal Inspection, Bilateral Eye PERRL HEENT: PERRL/EOMI, normal ENT inspection, pharynx normal Neck: non-tender, full range of motion, supple, normal inspection Respiratory: chest non-tender, lungs clear, normal breath sounds, no respiratory distress, no accessory muscle use Cardiovascular: regular rate, rhythm, no edema, no murmur Gastrointestinal: normal bowel sounds, non tender, soft; No distended, No guarding, No rebound Extremities: normal range of motion, non-tender, normal inspection, no pedal edema, no calf tenderness, normal capillary refill Neurologic/Psychiatric: no motor/sensory deficits, alert, normal mood/affect, oriented x 3, other (No meningismus) Skin: normal color, warm/dry Progress/Results/Core Measures Suspected Sepsis SIRS Temperature: Pulse: Respiratory Rate: Blood Pressure / Mean: Results/Orders My Orders Orders - YOLY ALLEN MD Ketorolac Injection (Ketorolac Injection (04/01/23 09:15) Diphenhydramine Injection (Diphenhydram (04/01/23 09:15) Vital Signs/I&O Capillary Refill : Progress Note : Progress Note 32-year-old female with above history coming in due to being positive for COVID. ABCs were intact and vitals are stable on presentation. She is afebrile here, no meningismus, well-appearing, very unlikely to have meningitis. She actually brought in her rapid test for COVID and I am able to verify that she is positive. We will give her IM Toradol, Compazine, Benadryl to help with her body aches and headache. Otherwise they will be symptomatic management at home. She is tolerating p.o. so she can drink fluids at home. I believe she stable for discharge with outpatient follow-up. She was sent home with strict return precautions. Departure Impression Primary Impression: COVID-19 Disposition: 01 HOME, SELF-CARE Condition: Stable Departure-Patient Inst. Decision time for Depature: 09:15 Referrals: NO,LOCAL PHYSICIAN (PCP/Family) Primary Care Physician Patient Instructions: COVID-19 (DC) Add. Discharge Instructions: Expect to have a fever and body aches for several days to a week. Follow-up with your regular doctor if you are not seeing improvement in that time. Take ibuprofen and or Tylenol as needed for fever and body aches. Nausea medicines were sent to your pharmacy in case you develop nausea which is a possibility. Be sure to be drinking plenty of fluids when able. Scripts Ondansetron (Ondansetron Odt) 4 Mg Tab.rapdis 4 MG SL Q6H PRN for NAUSEA/VOMITING for 5 Days, #20 TAB Prov: YOLY ALLEN MD 04/01/23 Work/School Note: Work Release Form Date Seen in the Emergency Department: Apr 01, 2023 Return to Work: Apr 06, 2023 Restrictions: Return-No Fever (24hrs), Return-No Vomiting(24hrs) YOLY ALLEN MD Apr 01, 2023 09:09
[2023-04-01] MEDS ORDERED: diphenhydrAMINE INJ 50 MG/ML VIAL IM ONE (09:15)
[2023-04-01] MEDS ORDERED: PROCHLORPERAZINE INJ 10 MG/2ML VIAL IM ONE (09:15)
[2023-04-01] MEDS ORDERED: KETOROLAC INJ 15 MG/ML VIAL IM ONE (09:15)
[2023-04-01 09:20] VITALS: BP 133/91
== END 2023-04-01 09:20 | disposition home or self-care (01) ==
LOC: EDUNIT# 08:53 → ER FS 08:55
DX: U07.1 COVID-19 (principal); R50.9 Fever, unspecified; R51.9 Headache, unspecified; R05.9 Cough, unspecified; F17.210 Nicotine dependence, cigarettes, uncomplicated; Z73.0 Burn-out
CPT/HCPCS: 99284

== ENCOUNTER 2023-04-29 22:34 | Emergency (ER) | payer MEDICAID ==
[~2023-04-29] VITALS: Ht 165 cm; Wt 80.0 kg
[~2023-04-29 22:34] MED LIST changes: -MECL-149 PO; +MECL-291 PO
--- NOTE | 2023-04-29 22:56 | ED General ---
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 Patient gave her patient insulin and then scratched her finger with a needle as she was recapping. Her finger did not bleed at the time. The patient she was taking care of is wheelchair-bound for the past 30 years and lives in a care home, and is not known to have HIV or hepatitis. Allergies and Home Medications Allergies Coded Allergies: No Known Drug Allergies (Unverified , 02/26/13) Patient Home Medication List Home Medication List Reviewed: Yes Cephalexin (Cephalexin) 500 Mg Tablet, 500 MG PO BID Prescribed by: OTILIO OCAMPO MD on 07/23/222205 Cyclobenzaprine HCl (Cyclobenzaprine HCl) 5 Mg Tablet, 5 MG PO BID PRN for BACK PAIN Prescribed by: JACKY PAIGE on 01/15/23 0811 Cyclobenzaprine HCl (Cyclobenzaprine HCl) 5 Mg Tablet, 5 MG PO TID PRN for muscle spasm/back pain Prescribed by: VIPIN NASH on 02/21/23 235 Guaifenesin/Dextromethorphan (Mucinex Dm ER 1,200-60 mg Tab) 1,200 Mg-60 Mg Tbmp.12hr, 1 EACH PO BID Prescribed by: ARAMIS DUQUE on 07/16/222043 Hydrocodone/Acetaminophen (Hydrocodone-Acetamin 5-325 mg) 5 Mg-325 Mg Tablet, 1 TAB PO Q4H PRN for PAIN-MODERATE (5-7) Prescribed by: ARAMIS DUQUE on 07/25/221946 Ibuprofen (Ibuprofen) 800 Mg Tablet, 800 MG PO Q8H PRN for PAIN Prescribed by: JACKY PAIGE on 01/15/232121 Meclizine HCl (Meclizine HCl) 25 Mg Tablet, 25 MG PO TID PRN for DIZZINESS Prescribed by: VPIIN NASH on 05/09/22 153 Meloxicam (Meloxicam) 7.5 Mg Tablet, 7.5 MG PO DAILY Prescribed by: VIPIN NASH on 02/21/23 235 Metoclopramide HCl (Reglan) 10 Mg Tablet, 10 MG PO Q6H Prescribed by: PREET STAPLETON on 03/05/232339 Metronidazole (Metronidazole) 500 Mg Tablet, 500 MG PO TID Prescribed by: ARAMIS DUQUE on 07/25/221945 Nitrofurantoin Monohyd/M-Cryst (Macrobid 100 mg Capsule) 100 Mg Capsule, 1 TAB PO BID Prescribed by: PREET STAPLETON on 03/05/232339 Ondansetron (Ondansetron Odt) 4 Mg Tab.rapdis, 4 MG SL Q6H PRN for NAUSEA/VOMITING Prescribed by: YOLY ALLEN on 02/20/232121 Ondansetron (Ondansetron Odt) 8 Mg Tab.rapdis, 8 MG PO Q6H Prescribed by: PREET STAPLETON on 03/05/232339 Ondansetron (Ondansetron Odt) 4 Mg Tab.rapdis, 4 MG SL Q6H PRN for NAUSEA/VOMITING Prescribed by: YOLY ALLEN on 04/01/23 09 Pantoprazole Sodium (Protonix) 40 Mg Tablet.dr, 40 MG PO DAILY Prescribed by: PREET STAPLETON on 03/05/232339 Prednisone (Prednisone) 20 Mg Tab, 40 MG PO DAILY Prescribed by: ARAMIS DUQUE on 07/25/221945 Promethazine HCl (Promethazine Tablet) 25 Mg Tablet, 25 MG PO Q8H PRN for NAUSEA/VOMITING-2ND LINE Prescribed by: YOLY ALLEN on 02/20/232121 Review of Systems Review of Systems Constitutional: no symptoms reported, see HPI Skin: see HPI Past Wmjlubh-Lwjxpb-Edjhwd Hx Immunizations Up To Date Tetanus Booster (TDap): More than 5yrs First/Initial COVID19 Vaccinat: X2 Second COVID19 Vaccination Dominic: X2 Third COVID19 Vaccination Date: 09/13 Seasonal Allergies Seasonal Allergies: No Past Medical History Surgery/Hospitalization HX: C section x2, tonsils HTN Surgeries: Yes Section, Gallbladder Respiratory: No Cardiac: No Neurological: No Reproductive Disorders: No Female Reproductive Disorders: Ovarian Cyst Sexually Transmitted Disease: No HIV/AIDS: No Genitourinary: Yes Bladder Infection Gastrointestinal: Yes (CHRONIC NAUSEA) Gastroesophageal Reflux Musculoskeletal: No Endocrine: No HEENT: No Cancer: No Psychosocial: Yes Anxiety, Depression Integumentary: No Blood Disorders: No Adverse Reaction/Blood Tranf: No Family Medical History No Pertinent Family Hx Physical Exam Vital Signs Capillary Refill : Height, Weight, BMI Height: '" Weight: 97lbs. oz. [id number]; 29.00 BMI Method:Stated General Appearance: No Apparent Distress, WD/WN HEENT: PERRL/EOMI Neck: Full Range of Motion Extremity: Normal Inspection (Needlestick injury to her right index finger, no saenz or bleeding or any evidence of it.) Neurologic/Psychiatric: Alert, Oriented x3 Skin: Normal Color Progress/Results/Core Measures Suspected Sepsis SIRS Temperature: Pulse: Respiratory Rate: Blood Pressure / Mean: Results/Orders Vital Signs/I&O Capillary Refill : Progress Note : Progress Note 1. SUPERFICIAL NEEDLESTICK INJURY: -Patient is refusing labs and postexposure prophylaxis at this time -Advised to contact employer as to [employer] protocol for lab testing her patient -Advised to follow-up with PCP on Monday Departure Impression Primary Impression: Needlestick injury accident Disposition: 01 HOME, SELF-CARE Condition: Stable Departure-Patient Inst. Referrals: NO,LOCAL PHYSICIAN (PCP/Family) Primary Care Physician Patient Instructions: Post-Exposure Prophylaxis, Proper Disposal of [place] Add. Discharge Instructions: -Advised to contact employer as to [employer] protocol for lab testing her patient -Advised to follow-up with PCP on Monday - Refusing labs and PEP OTILIO OCAMPO MD Apr 29, 2023 22:56
== END 2023-04-29 23:05 | disposition home or self-care (01) ==
LOC: EDUNIT# 22:34 → ER FS 22:36
DX: S69.81XA Other specified injuries of right wrist, hand and finger(s), initial encounter (principal); W46.0XXA Contact with hypodermic needle, initial encounter
CPT/HCPCS: 99281